=== PATIENT | female | born 1940 | race African-American/Black ===

== ENCOUNTER 2017-09-11 13:14 | Emergency (ER) | payer OTHER ==
[2017-09-11 13:26] VITALS: BP 138/79; PULSE 84; TEMP 98.5; BMI 36.6
--- NOTE | 2017-09-11 14:16 | PDOC ---
History of Present Illness - General Chief Complaint: Allergic Reaction Stated Complaint: SWOLLEN FACE Time Seen by Provider: 09/11/17 13:38 - History of Present Illness Initial Comments: 09/11/17 14:16 77 yo F with h/o HTN, arthritis who p/w lip swelling. Patient reports acute onset lip and facial swelling beginning yesterday evening. States that swelling of face has improved this AM. Reports similar history 3 times in past. Denies SOB, cough, muffled voice/hoarse voice, neck pain, vision changes, wheezing, tongue swelling, pruritus, rash, odynophagia. Patient able to tolerate oral secretions. Denies OTC symptom management. Denies exposure to new clothing, detergent, bedding, topical emollients, chapstick, makeup, shampoo, soaps, or other facial products. Denies F/C, N/V, CP, SOB, abdominal pain, diarrhea, constipation, urinary complaints, weakness, lightheadedness, sensory changes SHx: Tobacco use 1 ppd 30+ years. Denies Etoh or IVDA. PMHx: As noted above. Denies aj inhibitors. ROS: as noted above Past History - Past Medical History Allergies/Adverse Reactions: Allergies Allergy/AdvReac Type Severity Reaction Status Date / Time No Known Allergies Allergy Verified 09/11/17 13:21 Home Medications: Ambulatory Orders Amlodipine Besylate 0 mg PO DAILY 09/11/17 Carvedilol [Coreg] 0 mg PO DAILY 09/11/17 Prednisone [Prednisone 50 MG TABLETS] 50 mg PO DAILY #4 tablet MDD 1 tab Spironolactone 0 mg PO DAILY 09/11/17 COPD: No HTN: Yes Other medical history: ARTHRITIS - Surgical History Appendectomy: Yes - Suicide/Smoking/Psychosocial Hx Smoking History: Current every day smoker Have you smoked in the past 12 months: Yes Number of Cigarettes Smoked Daily: 20 Information on smoking cessation initiated: No Review of Systems - Review of Systems Comments:: 09/11/17 14:15 GENERAL/CONSTITUTIONAL: No fever or chills. No weakness. HEAD, EYES, EARS, NOSE AND THROAT: + Lip swelling. No change in vision. No ear pain or discharge. No sore throat. CARDIOVASCULAR: No chest pain or shortness of breath RESPIRATORY: No cough, wheezing, or hemoptysis. GASTROINTESTINAL: No nausea, vomiting, diarrhea or constipation. GENITOURINARY: No dysuria, frequency, or change in urination. MUSCULOSKELETAL: No joint or muscle swelling or pain. No neck or back pain. SKIN: No rash NEUROLOGIC: No headache, vertigo, loss of consciousness, or change in strength/ sensation. ENDOCRINE: No increased thirst. No abnormal weight change HEMATOLOGIC/LYMPHATIC: No anemia, easy bleeding, or history of blood clots. ALLERGIC/IMMUNOLOGIC: No hives or skin allergy. *Physical Exam - Vital Signs Last Vital Signs Temp Pulse Resp BP Pulse Ox 98.5 F 84 19 138/79 99 09/11/17 13:21 09/11/17 13:21 09/11/17 13:21 09/11/17 13:21 09/11/17 13:21 - Physical Exam Comments: 09/11/17 14:16 GENERAL: Awake, alert, and fully oriented, in no acute distress HEAD: No signs of trauma, normocephalic, atraumatic EYES: PERRLA, EOMI, sclera anicteric, conjunctiva clear ENT: Absent tongue swelling, or stridor. Auricles normal inspection, hearing grossly normal, nares patent, oropharynx clear without exudates. Moist mucosa NECK: Normal ROM, supple, no lymphadenopathy, JVD, or masses LUNGS: No distress, speaks full sentences, clear to auscultation bilaterally HEART: Regular rate and rhythm, normal S1 and S2, no murmurs, rubs or gallops, peripheral pulses normal and equal bilaterally. ABDOMEN: Soft, nontender, normoactive bowel sounds. No guarding, no rebound. No massesNEUROLOGICAL: Cranial nerves II through XII grossly intact. Normal speech, normal gait, no focal sensorimotor deficits SKIN: Warm, Dry, normal turgor, no rashes or lesions noted Medical Decision Making - Medical Decision Making 09/11/17 15:29 77 yo F with h/o HTN, arthritis who p/w lip swelling. VSS, A&OX3. Absent stridor , mucosal edema, wheezing, hypoxia, or other evidence of respiratory compromise. No systemic signs or symptoms of anaphylaxis. Patient able to tolerate PO intake and oral secretions. Most likely 2/2 angioedema ( hereditary vs. allergic vs. drug induced). ED Course: Diphehydramine, Ranitidine, Prednisone 09/11/17 16:57 09/11/17 17:07 Patient swelling improved following PO intake of medication. No evidence of resp. compromise. Patent advised to f/u with ENT and PMD. Referred to [facility] d/ t issues with insurance coverage. Advised to take Prednisone as prescribed. *DC/Admit/Observation/Transfer Diagnosis at time of Disposition: Lip swelling - Discharge Dispostion Disposition: HOME Condition at time of disposition: Stable Decision to Admit order: No - Prescriptions Prescriptions: Prednisone [Prednisone 50 MG TABLETS] 50 mg PO DAILY #4 tablet MDD 1 tab - Referrals Referrals: Jagjit Barraza MD [Staff Physician] - Hector Brewer MD [Staff Physician] - - Patient Instructions Printed Discharge Instructions: DI for Angioedema Additional Instructions: Please return to the emergency department with any new or worsening symptoms or concerns. Please follow up with your primary care physician within 72 hours. Please take prednisone daily as prescribed. - Post Discharge Activity - Attestations Physician Attestion: 09/11/17 16:21 I attest to the information provided in this note.
[2017-09-11] MEDS ORDERED: diphenhydrAMINE HCL 12.5 MG/5 ML UNIT-DOSE CUPS PO ONE (14:40)
[2017-09-11] MEDS ORDERED: predniSONE 20 MG TABLET (UD) PO ONE (14:40)
[2017-09-11] MEDS ORDERED: RANITIDINE HCL 150 MG TABLET (FP) PO ONE (14:40)
[2017-09-11] MEDS ORDERED: predniSONE 20 MG TABLET (UD) ONE (14:47)
[2017-09-11] MEDS ORDERED: diphenhydrAMINE HCL 25 MG CAPSULE (FP) PO ONE (14:47)
[2017-09-11] MEDS ORDERED: RANITIDINE HCL 150 MG TABLET (FP) ONE (14:48)
--- NOTE | 2017-09-11 17:03 | PDOC ---
Attending Attestation - Resident Resident Name: Kareem Reyes - ED Attending Attestation I have performed the following: I have examined & evaluated the patient, The case was reviewed & discussed with the resident, I agree w/resident's findings & plan, Exceptions are as noted - HPI HPI: 09/11/17 16:56 "The patient is a 77 year old female, with a history of arthritis and hypertension, who presents to the emergency department with lip swelling. Pt states that her bottom lip started to swell last night. It gradually progressed to her upper lip as well. Pt denies any tongue swelling, denies voice change, denies SOB, denies difficulty swallowing. Pt states she had 3 similar episodes in the past. She believes that it is an allergic reaction but does not know what she is allergic to. She has not seen an senior software qa engineer. Pt is not on ACEI or ARB. Denies any new foods or exposures. She denies any rashes. She denies recent fevers, chills, headache or dizziness. She denies recent nausea, vomit, diarrhea or constipation. She denies recent dysuria, frequency, urgency or hematuria. She denies recent chest pain or shortness of breath. Allergies: NKA Past surgical history: None reported. Social history: Smoker 1 pack per day for over 30 years. Denies EtOH use and recreational drug use. " - Physicial Exam PE: 09/11/17 17:06 "GENERAL: Awake, alert, and fully oriented, in no acute distress. HEAD: No signs of trauma EYES: PERRLA, EOMI, sclera anicteric, conjunctiva clear ENT: + lower lip swelling, + mild upper lip swelling, no tongue swelling, no uvula swelling, Auricles normal inspection, hearing grossly normal, nares patent , oropharynx clear without exudates. Moist mucosa NECK: Nontender, no stepoffs, Normal ROM, supple, no lymphadenopathy, JVD, or masses LUNGS: Breath sounds equal, clear to auscultation bilaterally. No wheezes, and no crackles, no stridor HEART: Regular rate and rhythm, normal S1 and S2, no murmurs, rubs or gallops ABDOMEN: Soft, nontender, normoactive bowel sounds. No guarding, no rebound. No masses EXTREMITIES: Normal range of motion, no edema. No clubbing or cyanosis. No cords, erythema, or tenderness NEUROLOGICAL: Cranial nerves II through XII intact. 5/5 strength and sensation in all extremities, Normal speech, normal gait, normal cerebellar function SKIN: Warm, Dry, normal turgor, no rashes or lesions noted. " - Medical Decision Making 09/11/17 17:07 77 F with angioedema localized to lips. Possibly 2/2 allergic reaction. Pt is not on ACEI or ARB. May also be hereditary, though pt without any family history of angioedema. Pt was given steroids, benadryl, and pepcid with significant improvement in swelling. After 3 hours in ED, pt reports that her lower lip is significantly smaller than when she arrived. Upper lip still with mild swelling but also improving. Pt is well appearing, with normal vitals. Clinically stable for DC at this time. I discussed the physical exam findings, ancillary test results and final diagnoses with the patient. I answered all of the patient's questions. The patient was satisfied with the care received and felt comfortable with the discharge plan and treatment plan. The patient agrees to follow up with the primary care physician within 24-72 hours. Pt instructed to follow up with ENT/senior software qa engineer within 1 week.
== END 2017-09-11 17:18 | disposition home or self-care (01) ==
LOC: JER 13:14
DX: T78.3XXA Angioneurotic edema, initial encounter (principal); I10 Essential (primary) hypertension; M12.9 Arthropathy, unspecified; F17.210 Nicotine dependence, cigarettes, uncomplicated
CPT/HCPCS: 99282-25

== ENCOUNTER 2018-12-30 14:26 | Emergency (ER) | payer OTHER ==
[2018-12-30 14:32] VITALS: BMI 43.7
--- NOTE | 2018-12-30 14:52 | PDOC ---
History of Present Illness - General Chief Complaint: Injury Stated Complaint: FALL Time Seen by Provider: 12/30/18 14:52 History Source: Patient Exam Limitations: No Limitations - History of Present Illness Initial Comments: 78 year old female with PMH HTN, CHF, arthritis, angioedema, meningioma presented to ED for closed head injury 2/2 fall from bed. Pt reported she was dreaming that someone was attacking her with a gun, became scared and accidentally fell out of bed onto the ground. Pt reported she was unable to get up off the ground on her own, prompting her and her granddaughter who was home to call the ambulance. Pt denied chest pain, shortness of breath, palpitations, lightheadedness, syncope, LOC, vomiting. Pt reported right sided forehead pain and right lateral hand pain. Pt reported she feels her hand pain has improved. Pt denied neck pain, lower extremity pain, hip pain, abdominal pain. Pt reported she has been ambulatory without difficulty using her cane since the fall. Neurologist: Dr. Sandra AZEVEDO General: denied fever, chills, generalized weakness. HEENT: denied sore throat, rhinorrhea, ear pain. Cardiovascular: denied chest pain, palpitations, syncope, diaphoresis. Respiratory: denied shortness of breath, cough, sputum production, hemoptysis. Gastrointestinal: denied abdominal pain, nausea, vomiting, diarrhea, constipation, blood in stool. Genitourinary: denied dysuria, increased urinary frequency, hematuria, urinary incontinence, flank pain. Back: denied back pain. Musculoskeletal: denied joint pain, muscle pain, joint swelling. Neurological: admitted to headache. denied dizziness, numbness, tingling, weakness. Integumentary: denied rash, laceration, abrasion. Hematologic/Lymphatic: denied bruising or bleeding. PE Constitutional: Well-nourished, Well-developed, appearing stated age. Airway: intact Breathing: bilateral breath sounds Circulation: 2+ carotid pulse B/L HEENT: head is normocephalic. right forehead hematoma. No facial bones tenderness to palpation. No love sign. No raccoon eyes. EOMI. PERRLA. Neck: supple. Full ROM. no midline c-spine tenderness to palpation. No step offs. no paraspinal tenderness to palpation. Cardiovascular: regular heart rhythm. no murmurs. no pericardial friction rub. Chest wall: no seatbelt sign. No tenderness to palpation of anterior chest wall. No deformity to anterior chest wall. Respiratory: clear to auscultation bilaterally. no crackles, rhonchi or wheezing. no stridor. Abdomen: soft, nontender. normal bowel sounds. no rebound, guarding, masses. No ecchymoses. Back: no midline T-spine or L-spine tenderness to palpation. No step offs. Pelvis: lower extremities equal in length without external rotation. No hip tenderness to palpation. Extremities: peripheral pulses intact. no lower extremity edema. full ROM bilateral wrists. no tenderness to palpation of right hand. no snuff box tenderness to right hand. full ROM all right hand fingers. Neurological: alert. oriented x3. CN2-12 intact. 5/5 strength all extremities. normal ankle plantar flexion. full sensation all extremities and bilateral face. no ataxia. gait normal. Psych: awake, alert, oriented x3. follows commands. answers questions appropriately. Past History - Past Medical History Allergies/Adverse Reactions: Allergies Allergy/AdvReac Type Severity Reaction Status Date / Time No Known Allergies Allergy Verified 09/11/17 13:21 Home Medications: Ambulatory Orders Amlodipine Besylate 10 mg PO DAILY 09/11/17 Carvedilol [Coreg] 12.5 mg PO DAILY 09/11/17 Furosemide 40 mg PO DAILY 12/30/18 Meloxicam 15 mg PO DAILY 12/30/18 COPD: No HTN: Yes - Surgical History Appendectomy: Yes - Suicide/Smoking/Psychosocial Hx Smoking History: Never smoked Have you smoked in the past 12 months: Yes Number of Cigarettes Smoked Daily: 20 *Physical Exam - Vital Signs Last Vital Signs Temp Pulse Resp BP Pulse Ox 98.1 F 74 20 156/78 96 12/30/18 14:29 12/30/18 14:29 12/30/18 14:29 12/30/18 14:29 12/30/18 14:29 Medical Decision Making - Medical Decision Making 78 year old female with above PMH presented to ED for closed head injury 2/2 falling out of bed due to bad dream. Initial Vital Signs Temp Pulse Resp BP Pulse Ox 98.1 F 74 20 156/78 96 12/30/18 14:29 12/30/18 14:29 12/30/18 14:29 12/30/18 14:29 12/30/18 14:29 Afebrile. No tachycardia. No tachypnea. Mild hypertension - pt reported she did not take her BP medication today "because I didnt get around to it" No hypoxia on room air. Labs ordered: none Medications ordered: none -Pt offered Tylenol and refused Imaging ordered: CT head, CT cervical spine, CT facial bones, right hand XR 12/30/18 16:14 CT head report: Name: [facility] DEPARTMENT OF RADIOLOGY Phys: Rafia Tapia RESIDENT : 1940 Age: 78 Sex: F [facility] Acct: [id number] Loc: [address] Exam Date: 12/30/18 Status: [facility] [place] [id number] Unit Number: [id number] EXAM#: TYPE/EXAM: RESULT: [id number] CT/HEAD CT WITHOUT CONTRAST Cranial CT without contrast Clinical information: status post fall Multiplanar imaging was performed. Intravenous contrast was not administered. No prior imaging studies are available at this facility for direct comparison. No CT evidence of intracranial injury or calvarial fracture. There is no extra-axial fluid collection. Right forehead scalp contusion. An approximate 1.7 x 1 x 1 cm calcified meningioma is noted along the left lateral border of the frontal cerebral falx also abutting the superior sagittal sinus. No perilesional edema is visualized. A 0.3 cm calcification is noted within the head of the left caudate nucleus consistent with postinflammatory/postinfectious sequela. No discrete infarct is identified within the limitations of CT. The ventricles and cisterns appear unremarkable. 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 Impression: No CT evidence of acute intracranial pathology. Calcified 1.7 x 1 x 1 cm left frontal parafalcine meningioma. Correlation with 3 month follow-up CT /MRI is suggested to evaluate stability unless the patient is a surgical candidate at this time. 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 Reported By: Jordin Houser MD 12/30/[address] cervical spine report: Name: [facility] DEPARTMENT OF RADIOLOGY Phys: Abiodun Tapiaa RESIDENT : 1940 Age: 78 Sex: F [facility] Acct: [id number] Loc: [address] Exam Date: 12/30/18 Status: [facility] [place] [id number] Unit Number: [id number] ACCESSION # : [id number] EXAM#: TYPE/EXAM: RESULT: CT/CERVICAL SPINE CT W/O CONTR CERVICAL SPINE CT without contrast Clinical information: status post fall from bed Multiplanar imaging was performed. No prior imaging studies are available at this facility for direct comparison. No fracture or posttraumatic malalignment is seen. There is prominent ossified thickening of the posterior longitudinal ligament from the level of the base of the odontoid process to the mid C7 level. There is resultant marked central canal stenosis with corresponding marked spinal cord impingement at the C2-C3, C3-C4 and possibly C4 -C5 levels. The perivertebral soft tissues demonstrate no obvious abnormality. Note is made of diffuse thyromegaly. There appears to be enlargement of the partially imaged cardiac silhouette on the frontal digital cooking show host view. Correlation with radiography is suggested. IMPRESSION: No fracture is identified. Marked multilevel central canal stenosis with corresponding marked spinal cord impingement is noted secondary to ossified hypertrophic thickening of the posterior longitudinal ligament. Thyromegaly. Possible cardiomegaly. Reported By: Jordin Houser MD 12/30/[address] facial bone report: Name: [facility] DE[facility]MENT OF RADIOLOGY Phys: ReginaAbiodun banga RESIDENT : 1940 Age: 78 Sex: F [facility] Acct: [id number] Loc: [address] Exam Date: 12/30/18 Status: [place] [address] Unit Number: [id number] EXAM#: TYPE/EXAM: RESULT: CT/FACIAL BONES CT W/O CONTRAST Facial bones CT without contrast Clinical information: fall from bed, right periorbital swelling Multiplanar imaging was performed. The maxillofacial and orbital structures demonstrate no CT evidence of fracture. A scalp contusion is seen along the right lower forehead probably extending along the ipsilateral periorbital region. The intraorbital soft tissue structures demonstrate no CT evidence of injury. The partially imaged upper cervical spine demonstrates ossification of the posterior longitudinal ligament with resultant marked multilevel central canal stenosis. Please refer to the dedicated cervical spine CT report in this regard. Impression: No fracture is identified. Reported By: Jordin Houser MD 12/30/18 1615 Pt declined right hand injury, stating her pain is improved. Pt admitted to neck pain developing since she came to the ED. 12/30/18 17:00 Dr. Horton, neurosurgery sewing techniques demonstrator, paged. 12/30/18 17:21 Dr. Flores, pt's neurologist, paged, Dr. Raphael sewing techniques demonstrator. Pt agreed to hand XR - shows no acute fracture or dislocation by my read. -Pending official report 12/30/18 17:32 Dr. Horton, neurosurgery sewing techniques demonstrator, paged. 12/30/18 17:[address] Horton about CT findings, he reported it is likely chronic and pt can be discharged. 12/30/18 17:[address] Raphael about CT findings, he reported it is likely chronic 2/2 multilevel disease, he recommends prompt follow up and return precautions. Pt advised to F/U with neurosurgery and neurology and PCP. Plan for care explained to patient and grand-daughter, who agreed with plan for care. Pt to be discharged. 12/31/18 12:24 Follow up: Official Hand XR report: Name: [facility] DEPARTMENT OF RADIOLOGY Phys: Rafia Tapia RESIDENT : 1940 Age: 78 Sex: F [facility] Acct : [id number] Loc: [address] Exam Date: 12/30/18 Status: [facility] [address] Unit Number: [id number] EXAM#: TYPE/EXAM: RESULT: [id number] RAD/HAND- RIGHT Right hand: Fall. Tender fourth and fifth metacarpals 3 views of the right hand have been submitted. There is loss of bone density, degenerative changes and no sign of a gross fracture or subluxation no sign of blastic or lytic changes. Swelling, foreign body or soft tissue air is not seen. If symptoms persist, further imaging may be of help. Impression: Loss of bone density. Degenerative changes. No acute fracture appreciated. Reported By: Hector Maguire MD 12/31/18 0710 *DC/Admit/Observation/Transfer Diagnosis at time of Disposition: Closed head injury, Fall - Discharge Dispostion Disposition: HOME Condition at time of disposition: Improved Decision to Admit order: No - Referrals - Patient Instructions Printed Discharge Instructions: How to Prevent Falls, DI for Closed Head Injury Additional Instructions: Your CAT-SCAN results are below: -CT head report: Name: [facility]PARTMENT OF RADIOLOGY Phys: Rafia Tapia RESIDENT : 1940 Age: 78 Sex: F [facility] Acct: [id number] Loc: [address] Exam Date: 12/30/18 Status: [place] [address] Unit Number: [id number] EXAM#: TYPE/EXAM: RESULT: [id number] CT/HEAD CT WITHOUT CONTRAST Cranial CT without contrast Clinical information: status post fall Multiplanar imaging was performed. Intravenous contrast was not administered. No prior imaging studies are available at this facility for direct comparison. No CT evidence of intracranial injury or calvarial fracture. There is no extra-axial fluid collection. Right forehead scalp contusion. An approximate 1.7 x 1 x 1 cm calcified meningioma is noted along the left lateral border of the frontal cerebral falx also abutting the superior sagittal sinus. No perilesional edema is visualized. A 0.3 cm calcification is noted within the head of the left caudate nucleus consistent with postinflammatory/postinfectious sequela. No discrete infarct is identified within the limitations of CT. The ventricles and cisterns appear unremarkable. 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 Impression: No CT evidence of acute intracranial pathology. Calcified 1.7 x 1 x 1 cm left frontal parafalcine meningioma. Correlation with 3 month follow-up CT /MRI is suggested to evaluate stability unless the patient is a surgical candidate at this time. 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 Reported By: Jordin Houser MD 12/30/18 1549 -CT cervical spine report: Name: [facility] DEPARTMENT OF RADIOLOGY Phys: Rafia Tapia RESIDENT : 1940 Age: 78 Sex: F [facility] Acct: [id number] Loc: [facility] [address] [place] [address] Exam Date: 12/30/18 Status: [place] [id number] Unit Number: [id number] ACCESSION # : [id number] EXAM#: TYPE/EXAM: RESULT: CT/CERVICAL SPINE CT W/O CONTR CERVICAL SPINE CT without contrast Clinical information: status post fall from bed Multiplanar imaging was performed. No prior imaging studies are available at this facility for direct comparison. No fracture or posttraumatic malalignment is seen. There is prominent ossified thickening of the posterior longitudinal ligament from the level of the base of the odontoid process to the mid C7 level. There is resultant marked central canal stenosis with corresponding marked spinal cord impingement at the C2-C3, C3-C4 and possibly C4 -C5 levels. The perivertebral soft tissues demonstrate no obvious abnormality. Note is made of diffuse thyromegaly. There appears to be enlargement of the partially imaged cardiac silhouette on the frontal digital cooking show host view. Correlation with radiography is suggested. IMPRESSION: No fracture is identified. Marked multilevel central canal stenosis with corresponding marked spinal cord impingement is noted secondary to ossified hypertrophic thickening of the posterior longitudinal ligament. Thyromegaly. Possible cardiomegaly. Reported By: Jordin Houser MD 12/30/18 1558 -CT facial bone report: Name: [facility] DEPARTMENT OF RADIOLOGY Phys: Rafia Tapia RESIDENT : 1940 Age: 78 Sex: F [facility] Acct: [id number] Loc: [address] Exam Date: 12/30/18 Status: [place] [address] Unit Number: [id number] EXAM#: TYPE/EXAM: RESULT: CT/FACIAL BONES CT W/O CONTRAST Facial bones CT without contrast Clinical information: fall from bed, right periorbital swelling Multiplanar imaging was performed. The maxillofacial and orbital structures demonstrate no CT evidence of fracture. A scalp contusion is seen along the right lower forehead probably extending along the ipsilateral periorbital region. The intraorbital soft tissue structures demonstrate no CT evidence of injury. The partially imaged upper cervical spine demonstrates ossification of the posterior longitudinal ligament with resultant marked multilevel central canal stenosis. Please refer to the dedicated cervical spine CT report in this regard. Impression: No fracture is identified. Reported By: Jordin Houser MD 12/30/18 1615 Take Tylenol over the counter for pain. Take as advised on label. Follow up with your primary care doctor within 4 days. Your care is not complete until you follow up. Bring all paperwork given to you today to your appointment. Return to the Emergency Department for increasing pain, nausea, vomiting, chest pain, shortness of breath, lightheadedness, feeling off balance, change to gait , changes to vision, dizziness, numbness, weakness, or any other new, worsening or concerning symptoms. - Post Discharge Activity
--- NOTE | 2018-12-30 17:05 | PDOC ---
Documentation entered by Dayana Hutton SCRIBE, acting as scribe for Emma Maxwell MD. Emma Maxwell MD: This documentation has been prepared by the Anni coe Xhesika, SCRIBE, under my direction and personally reviewed by me in its entirety. I confirm that the documentation accurately reflects all work, treatment, procedures, and medical decision making performed by me. Attending Attestation - Resident Resident Name: ReginaRafia - ED Attending Attestation I have performed the following: I have examined & evaluated the patient, The case was reviewed & discussed with the resident, I agree w/resident's findings & plan, Exceptions are as noted - HPI HPI: 12/30/18 15:57 The patient is a 78 year old female with a significant PMH of arthritis and hypertension who presents to the emergency department BIBA for R eye and R hand edema s/p fall from bed. The patient states she was in bed, dreaming that someone was attacking her with a gun, patient got scared, rolled out of bed onto the ground. Patient denies LOC. Patient notes she was not able to get up/ambulate after her fall. Patient states she has been ambulatory without difficulty using her cane prior to fall. The patient denies chest pain, shortness of breath, headache and dizziness. Denies fever, chills, cough, nausea, vomiting, diarrhea and constipation. Denies dysuria, frequency, urgency and hematuria. Allergies: NKDA Past surgical history: Appendectomy Social history: 1 pack per day smoker, over 30 years. Denies EtOH use and recreational drug use. - Physicial Exam PE: 12/30/18 17:07 awake alert lungs clear bilat heart rr no mrg abd soft nt nd ext wwp. right hand mikld ttp. no snuff box tenderness. skin warm and dry. no midline spinal tenderness. 5/5 all four ext. - Medical Decision Making 12/30/18 17:08 78 yo s/p fall out of bed head trauma .plan ct head facial bones. xray hand ct cervical spine with severe stenosis, some cord impingement. no traumatic injury. pt no midline tenderneess on exam but co stiffness. likley incidental finding, will d/w nuersurgery. ct head known meningioma. xray hand pending.
[2018-12-30 18:17] VITALS: BP 148/68; PULSE 86; TEMP 98.5
== END 2018-12-30 18:19 | disposition home or self-care (01) ==
LOC: JER 14:26
DX: S09.8XXA Other specified injuries of head, initial encounter (principal); M79.641 Pain in right hand; W06.XXXA Fall from bed, initial encounter; Y93.89 Activity, other specified; Y92.032 Bedroom in apartment as the place of occurrence of the external cause; Y99.8 Other external cause status; M48.02 Spinal stenosis, cervical region; I11.0 Hypertensive heart disease with heart failure; I50.9 Heart failure, unspecified
CPT/HCPCS: 70450-TC; 70486-TC; 72125-TC; 73130-TC-RT-FY; 99283-25

== ENCOUNTER 2019-06-01 16:09 | Inpatient (IN) | payer OTHER ==
[2019-06-01 16:45] VITALS: BMI 45.3
[2019-06-01] MEDS ORDERED: ACETAMINOPHEN 1000 MG/100 ML VIAL (NON FORMULARY) IVPB ONE (16:54)
--- NOTE | 2019-06-01 16:54 | PDOC ---
History of Present Illness - General Chief Complaint: Rectal Bleed Stated Complaint: HEMATOCHEZIA Time Seen by Provider: 06/01/19 16:40 History Source: Patient Exam Limitations: No Limitations - History of Present Illness Initial Comments: 06/01/19 16:54 79yF w PMHx HTN HLD arthritis 50 pack year smoker presenting with hematochezia. Crimson red gross rectal bleeding with blood clots during bowel movement x4 first noted at 1pm today. Never had colonoscopy before. Only had small amount hematochezia once before attributed to food poisoning. Did not take any daily meds today, not on anticoagulation. Denies fever, lightheaded, chest pain, SOB, ABD pain, urinary symptoms. Past History - Past Medical History Allergies/Adverse Reactions: Allergies Allergy/AdvReac Type Severity Reaction Status Date / Time No Known Allergies Allergy Verified 06/01/19 16:45 Home Medications: Ambulatory Orders Amlodipine Besylate 10 mg PO DAILY 09/11/17 Carvedilol [Coreg] 12.5 mg PO DAILY 09/11/17 Furosemide 40 mg PO DAILY 12/30/18 Meloxicam 15 mg PO DAILY 12/30/18 COPD: No (ARTHRITIS) HTN: Yes Hypercholesterolemia: Yes - Surgical History Appendectomy: Yes - Psycho Social/Smoking Cessation Hx Smoking History: Never smoked Have you smoked in the past 12 months: No Number of Cigarettes Smoked Daily: 20 Information on smoking cessation initiated: No Hx Alcohol Use: No Drug/Substance Use Hx: No Review of Systems - Review of Systems Constitutional: No: Chills, Fever HEENTM: No: Eye Pain, Nose Pain, Throat Pain Respiratory: No: Cough, Shortness of Breath Cardiac (ROS): No: Chest Pain, Palpitations ABD/GI: Yes: Rectal Bleeding. No: Abdominal Distended, Constipated, Diarrhea, Nausea, Vomiting : No: Burning, Dysuria Musculoskeletal: No: Back Pain, Joint Pain Integumentary: No: Bruising, Flushing Neurological: No: Headache, Seizure Psychiatric: No: Anxiety, Depression Endocrine: No: Excessive Sweating, Flushing, Intolerance to Cold, Intolerance to Heat *Physical Exam - Vital Signs Last Vital Signs Temp Pulse Resp BP Pulse Ox 98.2 F 90 16 161/83 100 06/01/19 16:31 06/01/19 16:31 06/01/19 16:31 06/01/19 16:31 06/01/19 16:31 - Physical Exam General Appearance: Yes: Nourished, Appropriately Dressed, Obese. No: Apparent Distress HEENT: positive: EOMI, JOHNNIE, Normal Voice, Hearing Grossly Normal. negative: Scleral Icterus (R), Scleral Icterus (L) Respiratory/Chest: positive: Lungs Clear, Normal Breath Sounds. negative: Chest Tender, Respiratory Distress Cardiovascular: positive: Regular Rhythm, Regular Rate, S1, S2. negative: Edema , Murmur Gastrointestinal/Abdominal: positive: Normal Bowel Sounds, Flat, Soft, Hernia ( ventral hernia, non tender, reduceable). 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 negative: Sensory Deficit, Confused, Disoriented ED Treatment Course - LABORATORY CBC & Chemistry Diagram: 06/01/19 16:38 06/01/19 16:38 Medical Decision Making - Medical Decision Making 06/01/19 17:01 EKG sinus rhythm w PVCs, HR 95, QTc 487, no ST changes Hgb 10.3 --- 79yF w PMHx HTN HLD arthritis 50 pack year smoker presenting with painless hematochezia. Hemodynamically stable. DDx: colorectal cancer (hx smoking) vs angiodysplasia vs diverticula. Also anemic Hgb 10.3, not concerning for transfusion Given 2 morphine, 80 protonix, tylenol Anticipate admit for hematochezia Signed out to night team - pending labs Discharge - Discharge Information Problems reviewed: Yes Clinical Impression/Diagnosis: Hematochezia Condition: Stable - Follow up/Referral Referrals: Toney Campbell MD [Primary Care Provider] - - Patient Discharge Instructions - Post Discharge Activity
[2019-06-01] MEDS ORDERED: morphine CARPU-JECT 4 MG/1 ML DISP.SYRIN IVPUSH ONE (17:06)
[2019-06-01] MEDS ORDERED: PANTOPRAZOLE SODIUM 40 MG VIAL IVPUSH ONE (17:06)
[2019-06-01 17:07] LABS: WHITE BLOOD COUNT 6.2 K/mm3 (4.0-10.0)
[2019-06-01 17:08] LABS: BASO % 1.5 % (0-2.0); EOS % 1.1 % (0-4.5); HEMATOCRIT 31.4 % (32.4-45.2); HEMOGLOBIN 10.3 GM/dL (10.7-15.3); LYMPH % 29.7 % (8-40); MCH 28.4 pg (25.7-33.7); MCHC 32.8 g/dl (32.0-36.0); MEAN CELL VOLUME 86.5 fl (80-96); MEAN PLT VOLUME 8.8 fl (7.5-11.1); MONO % 6.3 % (3.8-10.2); NEUT % 61.4 % (42.8-82.8); PLATELET COUNT 279 K/MM3 (134-434); RBC 3.63 M/mm3 (3.60-5.2); RDW 16.2 % (11.6-15.6)
[2019-06-01] MEDS ORDERED: MORPHINE SULFATE 2 MG/ML VIAL ONE (17:22)
[2019-06-01] MEDS ORDERED: PANTOPRAZOLE SODIUM 40 MG VIAL ONE (17:22)
--- NOTE | 2019-06-01 20:06 | PDOC ---
*Physical Exam - Vital Signs Last Vital Signs Temp Pulse Resp BP Pulse Ox 98.6 F 93 H 19 156/78 100 06/01/19 18:10 06/01/19 18:10 06/01/19 18:10 06/01/19 18:10 06/01/19 18:10 - Physical Exam General Appearance: Yes: Nourished, Appropriately Dressed, Obese. No: Apparent Distress HEENT: positive: EOMI, JOHNNIE, Normal ENT Inspection, Normal Voice, Symmetrical, Pharynx Normal. negative: Scleral Icterus (R), Scleral Icterus (L), Pharyngeal Erythema, Tonsillar Exudate, Tonsillar Erythema Neck: positive: Trachea midline, Normal Thyroid, Supple. negative: Tender, Lymphadenopathy (R), Lymphadenopathy (L), Tender lateral, Tender midline Respiratory/Chest: positive: Lungs Clear, Normal Breath Sounds. negative: Chest Tender, Respiratory Distress, Accessory Muscle Use, Paradoxal Breathing, Crackles, Rales, Rhonchi, Stridor, Wheezing Cardiovascular: positive: Regular Rhythm, Regular Rate. negative: Murmur Gastrointestinal/Abdominal: positive: Normal Bowel Sounds, Soft, Protuberent. negative: Tender, Organomegaly, Pulsatile Mass, Guarding, Rebound Musculoskeletal: positive: Normal Inspection. negative: CVA Tenderness Extremity: positive: Normal Capillary Refill, Normal Inspection, Normal Range of Motion, Pelvis Stable. negative: Tender, Pedal Edema, Swelling Integumentary: positive: Normal Color, Dry, Warm Neurologic: positive: Fully Oriented, Alert, Normal Mood/Affect. negative: Normal Response ED Treatment Course - LABORATORY CBC & Chemistry Diagram: 06/02/19 01:10 06/01/19 19:45 - ADDITIONAL ORDERS Additional order review: Laboratory Results 06/01/19 06/01/19 16:45 16:38 Sodium Cancelled Potassium Cancelled Chloride Cancelled Carbon Dioxide Cancelled Anion Gap Cancelled BUN Cancelled Creatinine Cancelled Est GFR (CKD-EPI)AfAm Cancelled Est GFR (CKD-EPI)NonAf Cancelled Random Glucose Cancelled Calcium Cancelled Total Bilirubin Cancelled AST Cancelled ALT Cancelled Alkaline Phosphatase Cancelled Creatine Kinase Cancelled Troponin I Cancelled Total Protein Cancelled Albumin Cancelled Blood Type Cancelled Antibody Screen Cancelled 06/01/19 16:38 RBC 3.63 MCV 86.5 MCHC 32.8 RDW 16.2 H MPV 8.8 Neutrophils % 61.4 Lymphocytes % 29.7 Monocytes % 6.3 Eosinophils % 1.1 Basophils % 1.5 - Medications Given in the ED: ED Medications Discontinued Medications Generic Name Dose Route Start Last Admin Trade Name Toy PRN Reason Stop Dose Admin Acetaminophen 1,000 mg 06/01/19 16:54 06/01/19 17:54 Ofirmev Injection - IVPB 06/01/19 16:55 1,000 mg ONCE ONE Administration Morphine Sulfate 2 mg 06/01/19 17:06 06/01/19 17:24 Morphine Injection - IVPUSH 06/01/19 17:07 2 mg ONCE ONE Administration Pantoprazole Sodium 80 mg 06/01/19 17:06 06/01/19 17:24 Protonix Iv IVPUSH 06/01/19 17:07 80 mg ONCE ONE Administration Medical Decision Making - Medical Decision Making 06/01/19 20:06 Signed out to me by Dr. Meza. 79F with PMH HTN, 50 pack year smoking history presenting with multiple episodes of painless BRBPR and clots. Signed out ~250cc bleeding in ED. Ddx includes diverticular bleeding vs. colon CA. CBC stable, pending remaining labs. IV was removed, needs replacement. Needs order for 2 units pRBCs in anticipation of transfusion. Exam reveals non-tender abdomen, normal heart/lung exam, good color. [X] labs [X] IV [X] blood order [] dispo 06/01/19 20:10 Labs notable for: - Hgb 10.3, unknown baseline - Ca 7.9, 9.1 corrected - Alb 2.5 06/01/19 22:30 Blood consent obtained. Admitting for serial Hbg checks and possible colonoscopy in AM for evaluation of diverticular disease. 06/01/19 23:51 Discussed case with carmelo Schwarz for tele admit under Dr. Vasquez 06/02/19 04:41 Blood running, patient in NAD, VS stable. Discharge - Discharge Information Problems reviewed: Yes Clinical Impression/Diagnosis: Hematochezia Condition: Stable - Admission Yes - Follow up/Referral - Patient Discharge Instructions - Post Discharge Activity
[2019-06-01 20:34] LABS: ALBUMIN 2.5 g/dl (3.4-5.0); ALK PHOS 121 U/L (45-117); ANION GAP 6 MMOL/L (8-16); BILIRUBIN,TOTAL 0.2 mg/dL (0.2-1); BLOOD UREA NITROGEN 17.3 mg/dL (7-18); CALCIUM 7.9 mg/dL (8.5-10.1); CHLORIDE 110 mmol/L (98-107); CO2 27 mmol/L (21-32); CREATININE 0.7 mg/dL (0.55-1.3); GLUCOSE,RANDOM 116 mg/dL (74-106); POTASSIUM 3.5 mmol/L (3.5-5.1); SGOT/AST 16 U/L (15-37); SGPT/ALT 16 U/L (13-61); SODIUM 143 mmol/L (136-145); TOT PROT 6.6 g/dl (6.4-8.2)
[2019-06-01 21:42] LABS: INR 1.13 (0.83-1.09); PROTHROMBIN TIME (PATIENT) 13.3 SEC (9.7-13.0)
--- NOTE | 2019-06-01 22:43 | PN ---
Teaching Attending Note Name of Resident: Moe Junior ATTENDING PHYSICIAN STATEMENT I saw and evaluated the patient. I reviewed the resident's note and discussed the case with the resident. I agree with the resident's findings and plan as documented. SUBJECTIVE: Patient is a 79 year old woman with a PMH of HTN, Osteoarthritis of knees, Meningioma, Tobacco use, Appendectomy and HLD, who presents to the ER with 1 day of hematochezia (x4 BM). Patient describes it as red blood with clots. Patient was not compliant with medications today secondary to symptoms. She denies recent fevers, chills, headache or dizziness. She denies recent nausea, vomit, abdominal pain, dysuria, frequency, urgency, hematuria, chest pain or shortness of breath. Passed a lot of blood (>150 ml) while in the ER. +Tobacco use - 50 pack years smoking. Denies alcohol or illicit drug use. No sick contacts or recent travels. FH of DM. Patient is adopted. Used a lot of Naproxen in the past and has been taking Ibuprofen/Meloxicam lately. OBJECTIVE: Alert and not orthostatic Vital Signs Period Temp Pulse Resp BP Sys/Glez Pulse Ox Last 24 Hr 98.2 F-98.6 F 90-93 16-19 156-161/78-83 100-100 HEENT: No Jaundice, eye redness or discharge, PERRLA, EOMI. Normocephalic, atraumatic. External ears are normal and hearing is grossly intact. No nasal discharge. Neck: Supple, nontender. No palpable adenopathy or thyromegaly. No JVD Chest: Good effort. Clear to auscultation and percussion. Heart: Regular. No S3, rub or murmur Abdomen: Not distended, soft, nontender and no HSM. No rebound or guarding. Normal bowel sounds. Ext: Peripheral pulses intact. No leg edema. Chronic stasis dermatitis changes in both lower extremities. Dystrophic toe nails. Skin: Warm and dry. No petechiae, rash or ecchymosis. Red blood on rectal exam and no external hemorrhoids. Neuro: Alert. Oriented x3. CN 2-12 grossly intact. Sensation grossly intact in all four extremities and DTR are symmetric. Psych: Appropriate mood and affect. Good insight. Home Medications Medication Instructions Recorded Amlodipine Besylate 10 mg PO DAILY 09/11/17 Carvedilol [Coreg] 12.5 mg PO DAILY 09/11/17 Furosemide 40 mg PO DAILY 12/30/18 Meloxicam 15 mg PO DAILY 12/30/18 Abnormal Lab Results 06/01/19 06/01/19 06/01/19 16:38 19:45 19:45 Hgb 10.3 L Hct 31.4 L RDW 16.2 H PT with INR 13.30 H INR 1.13 H Chloride 110 H Anion Gap 6 L Random Glucose 116 H Calcium 7.9 L Alkaline Phosphatase 121 H Albumin 2.5 L Crossmatch 06/01/19 19:45 Hgb Hct RDW PT with INR INR Chloride Anion Gap Random Glucose Calcium Alkaline Phosphatase Albumin Crossmatch See Detail ASSESSMENT AND PLAN: 1. Rectal bleeding - Etiology unclear. Will get CT abdomen/pelvis with contrast and CXR. Send blood for iron studies and type and cross PRBC. Transfuse once clinically indicated. Got tylenol, morphine and protonix in the ER. Will continue Protonix 40 mg bid IV, IV NS, keep her NPO and consult GI. Get HbA1c. Counseled to avoid NSAIDS. EKG shows NSR with premature supraventricular complexes and prolonged QTc. Will continue comprehensive care for all of patient s comorbid conditions. 2. Hypoalbuminemia - Possibly due to combined effects of malnutrition and inflammation associated with comorbid chronic conditions. Will ensure adequate dietary protein intake and also consult oceanographer physical. Urinalysis pending. 3. Tobacco Use Counseled on risks associated with tobacco use. We will provide patient all the necessary assistance to facilitate smoking cessation and prescribe Nicotine patch. 4. Morbid obesity Counseled on the risks associated with morbid obesity. Will provide patient all the necessary assistance, counseling and positive reinforcement to facilitate weight loss. Consult oceanographer physical. 5. Hypertension - Restart suitable outpatient antihypertensive drugs when clinically appropriate. Revise regimen to ensure [id number] excellent BP control and program counselor patient on the injurious effects of uncontrolled hypertension. Nonpharmacologic measures to control hypertension like weight loss , salt restriction and exercise discussed. Importance of adherence to treatment regimen and attainment of normotension emphasized. 6. DVT prophylaxis - SCD 7. Advance directives - Full code
--- NOTE | 2019-06-01 23:39 | HP ---
CHIEF COMPLAINT: rectal bleeding PCP: Shannan HISTORY OF PRESENT ILLNESS: 79F w/ pmh HTN, Dyslipidemia, chronic OA(knees), chronic venous stasis, b/l BLE de souza, chronic tobacco usage, meningioma(Dyckoff) presented to [email or web address] for complaints of bloody BM with mixed clots x4 episodes. Had one similiar episode, ~2ys prior which prompted a PCP visit. Was reassured that it was just food poisoning. Denies N, V, fever, chills, new foods, sick contacts. Takes NSAIDs for chronic knee pain, used to take naproxen regularly but stopped 2ys prior. Denies rectal masses. Has regular daily BM, denies straining during defecation. Eats fruits regularly, salad once/weekly. Never had EGD, or C-scopy. Denies h/o hemorrhoids, cirrhoisis, Hepatitis. No FH h/o bleeds. No bleeding gums or h/o prolonged menses. No AC. Walks with cane. Lives with . 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 ER course was notable for: (1) Hbg 10.3, pRBC x2(ordered); rpt Hgb 8.9; pRBC ordered to be transfused (2) HR 93 (3) Morphine 2mg IVP x1, protonix 80mg IVP x1, ofirmev x1g (4) EKG: rhythm w/ premature supraventricular complexes, QTc 487 Recent Travel: denies PAST MEDICAL HISTORY: HTN, Dyslipidemia, chronic OA(knees), chronic venous stasis, b/l BLE de souza, chronic tobacco usage, meningioma(Dyckoff) PAST SURGICAL HISTORY: open appey Social History: Smokinppd since ~30y/o(~50 pack-years) Alcohol: social Drugs: denies Allergies No Known Allergies Allergy (Verified 06/01/19 16:45) HOME MEDICATIONS: Home Medications Medication Instructions Recorded Amlodipine Besylate 10 mg PO DAILY 09/11/17 Carvedilol [Coreg] 12.5 mg PO DAILY 09/11/17 Furosemide 40 mg PO DAILY 12/30/18 Meloxicam 15 mg PO DAILY 12/30/18 REVIEW OF SYSTEMS CONSTITUTIONAL: Absent: fever, chills, diaphoresis, generalized weakness, malaise, loss of appetite, weight change HEENT: Absent: rhinorrhea, nasal congestion, throat pain, throat swelling, difficulty swallowing, mouth swelling, ear pain, eye pain, visual changes CARDIOVASCULAR: Absent: chest pain, syncope, palpitations, irregular heart rate, lightheadedness , peripheral edema RESPIRATORY: Absent: cough, shortness of breath, dyspnea with exertion, orthopnea, wheezing, stridor, hemoptysis GASTROINTESTINAL: bloodly BM w/ clots Absent: abdominal pain, abdominal distension, nausea, vomiting, diarrhea, constipation, melena, hematochezia GENITOURINARY: Absent: dysuria, frequency, urgency, hesitancy, hematuria, flank pain, genital pain MUSCULOSKELETAL: BLE knee pain, trouble ambulating Absent: myalgia, arthralgia, joint swelling, back pain, neck pain SKIN: Absent: rash, itching, pallor HEMATOLOGIC/IMMUNOLOGIC: Absent: easy bleeding, easy bruising, lymphadenopathy, frequent infections ENDOCRINE: Absent: unexplained weight gain, unexplained weight loss, heat intolerance, cold intolerance NEUROLOGIC: Absent: headache, focal weakness or paresthesias, dizziness, unsteady gait, seizure, mental status changes, bladder or bowel incontinence PHYSICAL EXAMINATION Vital Signs - 24 hr 06/01/19 06/01/19 16:31 18:10 Temperature 98.2 F 98.6 F Pulse Rate 90 Pulse Rate [ 93 H Apical] Respiratory 16 19 Rate Blood Pressure 161/83 Blood Pressure 156/78 [Right Arm] O2 Sat by Pulse 100 100 Oximetry (%) GENERAL: Awake, alert, and fully oriented, in no acute distress. Obese HEAD: NC/AT EYES: extraocular movements intact, sclera anicteric, conjunctiva clear w/o pallor. No lid lag. EARS, NOSE, THROAT: Ears normal, nares patent, oropharynx clear without exudates. Moist mucous membranes. NECK: Normal range of motion, supple without lymphadenopathy, JVD, or masses. LUNGS: Breath sounds equal, clear to auscultation bilaterally. No wheezes, and no crackles. No accessory muscle use. Breathing comfortably RA HEART: Regular rate and rhythm, normal S1 and S2 without murmur, rub or gallop. ABDOMEN: Indented RLQ surgical scar. Soft, nontender, not distended, no guarding , no rebound. Right-sided umbilical mass, reducible, nonTTP and w/o overlying skin changes RECTAL: dried clotted blood at perianal region. Excessive perianal tissue. Palpable ?hemorrhoid at ~6 oclock and 10'oclock. Streak of dark blood on glove. MUSCULOSKELETAL: Normal range of motion at all joints. Pain with AROM of knee UPPER EXTREMITIES: 2+ pulses, warm, well-perfused. No cyanosis. No clubbing. No peripheral edema. LOWER EXTREMITIES: 2+ pulses, warm, well-perfused. No calf tenderness. No peripheral edema. NEUROLOGICAL: Cranial nerves II-XII intact. Normal speech. Knee pain with standing upright PSYCHIATRIC: Cooperative. Good eye contact. Appropriate mood and affect. SKIN: Warm, dry, normal turgor, no rashes or lesions noted, normal capillary refill. Laboratory Results - last 24 hr 06/01/19 06/01/19 06/01/19 16:38 16:38 16:38 WBC 6.2 RBC 3.63 Hgb 10.3 L Hct 31.4 L MCV 86.5 MCH 28.4 MCHC 32.8 RDW 16.2 H Plt Count 279 MPV 8.8 Absolute Neuts (auto) 3.8 Neutrophils % 61.4 Lymphocytes % 29.7 Monocytes % 6.3 Eosinophils % 1.1 Basophils % 1.5 Nucleated RBC % 0 PT with INR INR Sodium Cancelled Potassium Cancelled Chloride Cancelled Carbon Dioxide Cancelled Anion Gap Cancelled BUN Cancelled Creatinine Cancelled Est GFR (CKD-EPI)AfAm Cancelled Est GFR (CKD-EPI)NonAf Cancelled Random Glucose Cancelled Calcium Cancelled Total Bilirubin Cancelled AST Cancelled ALT Cancelled Alkaline Phosphatase Cancelled Creatine Kinase Cancelled Troponin I Cancelled Total Protein Cancelled Albumin Cancelled Stool Occult Blood Blood Type O POSITIVE Antibody Screen Crossmatch 06/01/19 06/01/19 06/01/19 16:45 17:20 19:45 WBC RBC Hgb Hct MCV MCH MCHC RDW Plt Count MPV Absolute Neuts (auto) Neutrophils % Lymphocytes % Monocytes % Eosinophils % Basophils % Nucleated RBC % PT with INR INR Sodium 143 Potassium 3.5 Chloride 110 H Carbon Dioxide 27 Anion Gap 6 L BUN 17.3 Creatinine 0.7 Est GFR (CKD-EPI)AfAm 95.51 Est GFR (CKD-EPI)NonAf 82.41 Random Glucose 116 H Calcium 7.9 L Total Bilirubin 0.2 AST 16 ALT 16 Alkaline Phosphatase 121 H Creatine Kinase 66 Troponin I < 0.02 Total Protein 6.6 Albumin 2.5 L Stool Occult Blood Positive Blood Type Cancelled Antibody Screen Cancelled Crossmatch 06/01/19 06/01/19 19:45 19:45 WBC RBC Hgb Hct MCV MCH MCHC RDW Plt Count MPV Absolute Neuts (auto) Neutrophils % Lymphocytes % Monocytes % Eosinophils % Basophils % Nucleated RBC % PT with INR 13.30 H INR 1.13 H Sodium Potassium Chloride Carbon Dioxide Anion Gap BUN Creatinine Est GFR (CKD-EPI)AfAm Est GFR (CKD-EPI)NonAf Random Glucose Calcium Total Bilirubin AST ALT Alkaline Phosphatase Creatine Kinase Troponin I Total Protein Albumin Stool Occult Blood Blood Type O POSITIVE Antibody Screen Negative Crossmatch See Detail ASSESSMENT/PLAN: 79F w/ pmh HTN, Dyslipidemia, chronic OA(knees), chronic venous stasis, b/l BLE de souza, chronic tobacco usage, meningioma(Dyckoff) presented to [email or web address] for complaints of bloody BM with mixed clots x4 episodes. Admitted for probable GIB , requiring pRBC transfusion. ED with reported "100-250cc of bloody clots". # Hematochezia -- internal hemorrhoids vs diverticulosis > Hbg 10.3, pRBC x2(ordered); rpt Hgb 8.9; pRBC ordered to be transfused - hemodynamically stable(nontachy, normotensive, asymptomatic) - pRBC x2 --to be transfused - CTA A/P --to evaluate for bleed - GI(DiGiorno) consult: --recs pending - protonix 40 BID - NPO # HTN - holding HTN meds, will restart when appropriate # Dyslipidemia - needs med reconcilliation FEN - NPO(except for meds) - D5 1/2 NS + K @83 DVT PPX - no chemical AC in setting of bleed - SCDs Dispo: - Med surg Family Medical History Family Hx Cardiac Disorders: Mother (HTN) Visit type - Emergency Visit Emergency Visit: Yes ED Registration Date: 06/01/19 Care time: The patient presented to the Emergency Department on the above date and was hospitalized for further evaluation of their emergent condition. - New Patient This patient is new to me today: Yes Date on this admission: 06/02/19 - Critical Care Critical Care patient: No ATTENDING PHYSICIAN STATEMENT I saw and evaluated the patient. I reviewed the resident's note and discussed the case with the resident. I agree with the resident's findings and plan as documented. SUBJECTIVE: OBJECTIVE: ASSESSMENT AND PLAN:
[2019-06-02 01:24] LABS: HEMATOCRIT 27.1 % (32.4-45.2); HEMOGLOBIN 8.9 GM/dL (10.7-15.3); MCH 28.3 pg (25.7-33.7); MEAN CELL VOLUME 85.8 fl (80-96); MEAN PLT VOLUME 7.8 fl (7.5-11.1); PLATELET COUNT 216 K/MM3 (134-434); RBC 3.16 M/mm3 (3.60-5.2); RDW 15.7 % (11.6-15.6)
[2019-06-02] MEDS: D5-1/2NS+20 MEQ KCL - 20 MEQ/1,000 ML INFUS.BAG IV SCH (07:45)
[2019-06-02 09:04] LABS: HEMATOCRIT 29.7 % (32.4-45.2); HEMOGLOBIN 9.9 GM/dL (10.7-15.3); MCH 28.6 pg (25.7-33.7); MCHC 33.4 g/dl (32.0-36.0); MEAN CELL VOLUME 85.9 fl (80-96); MEAN PLT VOLUME 7.8 fl (7.5-11.1); PLATELET COUNT 206 K/MM3 (134-434); RBC 3.46 M/mm3 (3.60-5.2); RDW 15.7 % (11.6-15.6); WHITE BLOOD COUNT 6.1 K/mm3 (4.0-10.0)
[2019-06-02 09:59] LABS: BLOOD UREA NITROGEN 16.6 mg/dL (7-18); CALCIUM 7.8 mg/dL (8.5-10.1); CREATININE 0.7 mg/dL (0.55-1.3); PHOSPHOROUS 3.6 mg/dL (2.5-4.9); POTASSIUM 3.4 mmol/L (3.5-5.1)
--- NOTE | 2019-06-02 10:12 | PN ---
Progress Note (short form) - Note Progress Note: Patient is comfortable not bleeding anymore. She is hungry she wanted to eat some food. No fever no chills no nausea vomiting. Vital Signs Period Temp Pulse Resp BP Sys/Glez Pulse Ox Last 24 Hr 98.0 F-98.7 F 82-93 16-20 126-161/47-85 94-100 Head no headache no dizziness Ear nose throat no epistaxis Cardiovascular no chest pain Pulmonary no wheezing no coughing GI no abdominal pain Endocrine no history of diabetes hypothyroidism Neuro no history of stroke Dermatology no history of stroke Locomotor no history of joint pain Rest of review of systems are negative Physical examination Patient is comfortable HEENT normal Neck supple no JVD Lungs clear no wheezing Abdomen nontender no organomegaly bowel sounds normal Extremities she has chronic skin changes in the legs and mild edema Neurologically he is alert awake oriented, nonfocal Skin no rash noted CAT scan done today the result is as follows impression non-distended stomach limiting its evaluation. No gross gastrointestinal bleed demonstrated in the bowel. Gallbladder is negative for any acute cholecystitis and mild fatty liver. ASSESSMENT/PLAN: 79F w/ pmh HTN, Dyslipidemia, chronic OA(knees), chronic venous stasis, b/l BLE de souza, chronic tobacco usage, meningioma(Dyckoff) presented to [facility]ED for complaints of bloody BM with mixed clots x4 episodes. Admitted for probable GIB , requiring pRBC transfusion. ED with reported "100-250cc of bloody clots". # Hematochezia -- internal hemorrhoids vs diverticulosis > Hbg 10.3, pRBC x2(ordered); rpt Hgb 8.9; pRBC ordered to be transfused - hemodynamically stable(nontachy, normotensive, asymptomatic) - pRBC x2 --to be transfused - CTA A/P --to evaluate for bleed - GI(DiGiorno) consult: --recs pending - protonix 40 BID - NPO # HTN - holding HTN meds, will restart when appropriate # Dyslipidemia - needs med reconcilliation FEN - NPO(except for meds) - D5 1/2 NS + K @83 DVT PPX - no chemical AC in setting of bleed - SCDs Dispo: - Med surg Visit type - Emergency Visit Emergency Visit: Yes ED Registration Date: 06/01/19 Care time: The patient presented to the Emergency Department on the above date and was hospitalized for further evaluation of their emergent condition. - New Patient This patient is new to me today: Yes Date on this admission: 06/02/19 - Critical Care Critical Care patient: No - Discharge Referral Referred to [facility] No
[2019-06-02] MEDS: PANTOPRAZOLE 40 MG TABLET PO SCH ×2 (11:20→21:00)
[2019-06-02] MEDS ORDERED: PANTOPRAZOLE 40 MG TABLET ONE (11:28)
--- NOTE | 2019-06-02 12:01 | CON.GI ---
Consult Consult Specialty:: GI: For Dr. West Referred by:: Dr. Tigist Treadwell Reason for Consultation:: Rectal bleeding - History of Present Illness Chief Complaint: Rectal bleeding History of Present Illness: 79F admitted for evaluation of rectal bleeding. She describes 3 episodes of rectal bleeding and passage of clots at home yesterday. Last episode was around 530 last night. No bleeding since. Denies associated abdominal pain, nausea, vomiting, melena. Has been taking Aleve and ibuprofen for pain in her knees, States that she received cortisone inections for this about 6 months ago. Meloxicam is also listed on her home medication list. This was the first time she has had bleeding to this extent. She has never had an upper endoscopy or colonoscopy. Triage vitals yesterday revealed P: 90 BP: 161/82. Initial Hgb1AM this morning 8.9. Received 1 U PRBC. Hgb this morning 9.9. Receiving 2nd U PRBC. - History Source History Provided By: Patient, Family Member (Granddaughter present at bedside) Limitations to Obtaining History: No Limitations - Past Medical History Cardio/Vascular: Yes: HTN Rheumatology: Yes: Other (RA) - Past Surgical History Past Surgical History: Yes: Appendectomy - Alcohol/Substance Use Hx Alcohol Use: No - Smoking History Smoking history: Never smoked Have you smoked in the past 12 months: No Aproximately how many cigarettes per day: 20 - Social History Usual Living Arrangement: Alone ADL: Independent Place of : [facility] History of Recent Travel: No Home Medications - Allergies Allergies/Adverse Reactions: Allergies Allergy/AdvReac Type Severity Reaction Status Date / Time No Known Allergies Allergy Verified 06/01/19 16:45 - Home Medications Home Medications: Ambulatory Orders Amlodipine Besylate 10 mg PO DAILY 09/11/17 Carvedilol [Coreg] 12.5 mg PO DAILY 09/11/17 Furosemide 40 mg PO DAILY 12/30/18 Meloxicam 15 mg PO DAILY 12/30/18 Family Medical History Other Family History: Patent adopted. Does not know her biological family's history Review of Systems - Review of Systems Constitutional: denies: Unintentional Wgt. Loss Cardiovascular: denies: Chest Pain Respiratory: denies: SOB Gastrointestinal: reports: Rectal Bleeding. denies: Abdominal Pain, Indigestion , Melena, Nausea, Vomiting, Vomiting Blood Musculoskeletal: reports: Joint Pain Physical Exam-GI Vital Signs: Vital Signs Temperature 98.2 F 06/02/19 08:44 Pulse Rate 82 06/02/19 09:57 Respiratory Rate 06/02/19 09:57 Blood Pressure 136/47 L 06/02/19 09:57 O2 Sat by Pulse Oximetry (%) 95 06/02/19 06:50 Constitutional: Yes: Calm Eyes: No: Sclera Icterus Cardiovascular: Yes: Regular Rate and Rhythm. No: Murmur Respiratory: Yes: CTA Bilaterally Gastrointestinal Inspection: Yes: Scars (RLQ scar). No: Distention ...Auscultate: Yes: Normoactive Bowel Sounds ...Palpate: Yes: Soft. No: Hepatomegaly, Splenomegaly, Tenderness ...Percussion: No: Tympanitic Extremities: Yes: Other (Chronic stasis changes b/l LE) Edema: Yes Edema: LLE: 1+, RLE: 1+ Neurological: Yes: Alert Labs: CBC, BMP 06/02/19 08:50 06/02/19 08:50 INR, PTT INR 1.13 (0.83-1.09) H 06/01/19 19:45 Hepatic Panel Total Bilirubin 0.2 mg/dL (0.2-1) 06/01/19 19:45 AST 16 U/L (15-37) 06/01/19 19:45 ALT 16 U/L (13-61) 06/01/19 19:45 Alkaline Phosphatase 121 U/L (45-117) H 06/01/19 19:45 Albumin 2.5 g/dl (3.4-5.0) L 06/01/19 19:45 Problem List - Problems (1) Hematochezia Assessment/Plan: Patient remains hemodynamically stable. BUN normal as well. Suspect LGIB precipitated by NSAID use. Discussed with patient and her granddaughter. Discussed plan for colonoscopy and if unrevealing in terms of source of bleeding , possible upper endoscopy. Timing of procedures to be determined by her clincial course. Likely Tuesday, sooner if clnically warranted. Discussed potential risks of the procedures like but not limited to bleeding, perforation requiring surgery to repair, infection, sedation medication effects all of which could be potentially life threatening. She has agreed to the procedures. For now: NPO except meds IV hydration Surgical consult Admit to monitored setting. If worsening bleeding / hemodynamics, transfer to ICU Monitor H/H BID and for signs of overt bleeding Plan for Colonoscopy +/- EGD as noted above. Code(s): K92.1 - MELENA (2) Elevated alkaline phosphatase level Assessment/Plan: Noted on admission. May be from bone source. Check GGT and Abdominal US if elevated. Otherwise, continued w/u per PMD Code(s): R74.8 - ABNORMAL LEVELS OF OTHER SERUM ENZYMES
[2019-06-02] MEDS ORDERED: ACETAMINOPHEN 325 MG TABLET (FP) ONE (13:12)
[2019-06-02] MEDS: ACETAMINOPHEN 325 MG TABLET (FP) PO PRN ×2 (13:13→21:00)
--- NOTE | 2019-06-02 16:05 | EKG ---
Test Reason : Blood Pressure : / mmHG Vent. Rate : 095 BPM Atrial Rate : 095 BPM P-R Int : 162 ms QRS Dur : 078 ms QT Int : 388 ms P-R-T Axes : 059 014 065 degrees QTc Int : 487 ms SINUS RHYTHM WITH PREMATURE SUPRAVENTRICULAR COMPLEXES INFERIOR INFARCT NONSPECIFIC ST ABNORMALITY ABNORMAL ECG Confirmed by MD CHUCHO, OZ ([id number]) on 06/02/2019 4:05:20 PM Referred By: Confirmed By:OZ RANKIN MD
[2019-06-02 18:36] LABS: URINE APPEARANCE CLEAR; URINE BILIRUBIN NEGATIVE (NEGATIVE); URINE COLOR YELLOW; URINE GLUCOSE (UA) NEGATIVE (NEGATIVE); URINE KETONE NEGATIVE (NEGATIVE); URINE LEUK ESTERASE 0 (NEGATIVE); URINE NITRITE NEGATIVE (NEGATIVE); URINE PROTEIN 0 (NEGATIVE); URINE RBC 12.6 /hpf (0-4); URINE UROBILINOGEN 0.2 mg/dL (0.2-1.0); URINE WBC 0.7 /hpf (0-5)
[2019-06-02 18:37] LABS: EPI CELLS 0.8 /HPF (0-5/HPF); HYALINE CASTS 0.73 /lpf (0-8); URINE BACTERIA 17.7 /hpf (NEGATIVE)
[2019-06-02] MEDS: INSULIN SLIDING SCALE (NOVOLOG) 1 VIAL SQ SCH (21:01)
[2019-06-03] MEDS: ACETAMINOPHEN 325 MG TABLET (FP) PO PRN ×3 (06:38→18:52)
[2019-06-03] MEDS: D5-1/2NS+20 MEQ KCL - 20 MEQ/1,000 ML INFUS.BAG IV SCH (06:57)
--- NOTE | 2019-06-03 07:57 | PN ---
Progress Note (short form) - Note Progress Note: Patient is comfortable not bleeding anymore. She is hungry she wanted to eat some food. No fever no chills no nausea vomiting. Vital Signs Period Temp Pulse Resp BP Sys/Glez Pulse Ox Last 24 Hr 98.1 F-98.5 F 82-90 18-20 127-157/47-98 95-99 Review of system Ear nose throat no epistaxis Cardiovascular no chest pain Pulmonary no wheezing no coughing GI no abdominal pain Endocrine no history of diabetes hypothyroidism Neuro no history of stroke Dermatology no history of stroke Locomotor no history of joint pain Rest of review of systems are negative CBC, BMP 06/02/19 08:50 06/02/19 08:50 This hemoglobin is after 2 blood transfusions. Physical examination Patient is comfortable HEENT normal Neck supple no JVD Lungs clear no wheezing Abdomen nontender no organomegaly bowel sounds normal Extremities she has chronic skin changes in the legs and mild edema Neurologically he is alert awake oriented, nonfocal Skin no rash noted CAT scan done today the result is as follows impression non-distended stomach limiting its evaluation. No gross gastrointestinal bleed demonstrated in the bowel. Gallbladder is negative for any acute cholecystitis and mild fatty liver. ASSESSMENT/PLAN: 79F w/ pmh HTN, Dyslipidemia, chronic OA(knees), chronic venous stasis, b/l BLE de souza, chronic tobacco usage, meningioma(Dyckoff) presented to [facility] for complaints of bloody BM with mixed clots x4 episodes. Admitted for probable GIB , requiring pRBC transfusion. ED with reported "100-250cc of bloody clots". # Hematochezia -- internal hemorrhoids vs diverticulosis In by provider network mgr and she is going for colonoscopy hemoglobin is stable. Hypertension stable Atrial fibrillation history of will repeat EKG today and off anticoagulation at this time due to active bleeding. Will make her n.p.o. after midnight continue clear liquid diet. Visit type - Emergency Visit Emergency Visit: Yes ED Registration Date: 06/01/19 Care time: The patient presented to the Emergency Department on the above date and was hospitalized for further evaluation of their emergent condition. - New Patient This patient is new to me today: Yes Date on this admission: 06/03/19 - Critical Care Critical Care patient: No - Discharge Referral Referred to [facility] Med P.C.: No
[2019-06-03] MEDS: PANTOPRAZOLE 40 MG TABLET PO SCH ×2 (11:17→23:16)
[2019-06-03 11:40] LABS: BLOOD UREA NITROGEN 7.6 mg/dL (7-18); CREATININE 0.6 mg/dL (0.55-1.3); POTASSIUM 3.3 mmol/L (3.5-5.1)
[2019-06-03 11:44] LABS: BASO % 0.3 % (0-2.0); EOS % 1.6 % (0-4.5); HEMATOCRIT 32.4 % (32.4-45.2); HEMOGLOBIN 10.8 GM/dL (10.7-15.3); LYMPH % 28.8 % (8-40); MCH 28.8 pg (25.7-33.7); MCHC 33.4 g/dl (32.0-36.0); MEAN CELL VOLUME 86.4 fl (80-96); MEAN PLT VOLUME 8.7 fl (7.5-11.1); MONO % 4.8 % (3.8-10.2); NEUT % 64.5 % (42.8-82.8); PLATELET COUNT 217 K/MM3 (134-434); RBC 3.75 M/mm3 (3.60-5.2); RDW 15.5 % (11.6-15.6); WHITE BLOOD COUNT 6.5 K/mm3 (4.0-10.0)
--- NOTE | 2019-06-03 12:05 | PN.GI ---
GI Progress Note Subjective: Describes passage of small amount dark blood this morning, normal bowel movement subsequently No abdominal pain - Objective Vital Signs: Vital Signs Temperature 98.1 F 06/03/19 02:10 Pulse Rate 90 06/03/19 02:10 Respiratory Rate 20 06/03/19 02:10 Blood Pressure 146/62 06/03/19 02:10 O2 Sat by Pulse Oximetry (%) 99 06/02/19 21:24 Constitutional: Calm Eyes: No: Sclera Icterus HENT: Yes: Drooling Cardiovascular: Yes: Regular Rate and Rhythm Respiratory: Yes: CTA Bilaterally Gastrointestinal Inspection: No: Distention ...Auscultate: Yes: Normoactive Bowel Sounds ...Palpate: Yes: Soft. No: Hepatomegaly, Splenomegaly, Tenderness Extremities: Yes: Other (chronic stasis changes) Edema: Yes Edema: LLE: 1+, RLE: 1+ Neurological: Yes: Alert Labs: CBC, BMP 06/03/19 10:53 06/03/19 10:53 INR, PTT INR 1.13 (0.83-1.09) H 06/01/19 19:45 Problem List - Problems (1) Hematochezia Assessment/Plan: Clinically stable, scant amount of blood passed with subsequent normal bowel movement. Plan for colonoscopy 06/04/18. Consent obtained. Code(s): K92.1 - MELENA (2) Elevated alkaline phosphatase level Assessment/Plan: ordered repeat for AM Code(s): R74.8 - ABNORMAL LEVELS OF OTHER SERUM ENZYMES
--- NOTE | 2019-06-03 13:49 | EKG ---
Test Reason : Blood Pressure : / mmHG Vent. Rate : 090 BPM Atrial Rate : 090 BPM P-R Int : 188 ms QRS Dur : 084 ms QT Int : 402 ms P-R-T Axes : 088 035 067 degrees QTc Int : 491 ms SINUS RHYTHM WITH OCCASIONAL PREMATURE VENTRICULAR COMPLEXES AND PREMATURE ATRIAL COMPLEXES CANNOT RULE OUT INFERIOR INFARCT , AGE UNDETERMINED ABNORMAL ECG Confirmed by MD RANKIN MOYSES ([id number]) on 06/03/2019 1:48:32 PM Referred By: Cooper BURNS Confirmed By:OZ RANKIN MD
[2019-06-03] MEDS ORDERED: BISACODYL 5 MG TABLET.DR (FP) PO ONE (15:00)
[2019-06-03] MEDS ORDERED: PEG 3350/NA SULF BICARB CL/KCL 4000 ML SOLN.RECON PO ONE (16:00)
[2019-06-03] MEDS: INSULIN SLIDING SCALE (NOVOLOG) 1 VIAL SQ SCH (23:16)
[2019-06-04 07:45] LABS: BASO % 0.2 % (0-2.0); EOS % 1.9 % (0-4.5); HEMATOCRIT 30.8 % (32.4-45.2); HEMOGLOBIN 10.2 GM/dL (10.7-15.3); LYMPH % 31.7 % (8-40); MCH 28.6 pg (25.7-33.7); MCHC 33.1 g/dl (32.0-36.0); MEAN CELL VOLUME 86.3 fl (80-96); MEAN PLT VOLUME 8.7 fl (7.5-11.1); NEUT % 61.2 % (42.8-82.8); PLATELET COUNT 220 K/MM3 (134-434); RBC 3.57 M/mm3 (3.60-5.2); RDW 15.8 % (11.6-15.6); WHITE BLOOD COUNT 5.6 K/mm3 (4.0-10.0)
--- NOTE | 2019-06-04 08:08 | PN ---
Progress Note, Physician Chief Complaint: To complaints of rectal bleeding overnight. Awaiting colonscopy today History of Present Illness: 79F w/ pmh HTN, Dyslipidemia, chronic OA(knees), chronic venous stasis, b/l BLE de souza, chronic tobacco usage, meningioma(Dyckoff) presented to [facility] for complaints of bloody BM with mixed clots x4 episodes. Admitted for probable GIB , requiring pRBC transfusion. Pending colonscopy today - Current Medication List Current Medications: Active Medications Acetaminophen (Tylenol -) 650 mg PO Q6H PRN PRN Reason: PAIN Last Admin: 06/03/19 18:52 Dose: 650 mg Amlodipine Besylate (Norvasc -) 10 mg PO DAILY [facility] Carvedilol (Coreg -) 12.5 mg PO DAILY [facility] Potassium Chloride/Dextrose/Sod Cl (D5-1/2ns+20 Meq Kcl -) 20 meq in 1,000 mls @ 83 mls/hr IV ASDIR [facility] Last Admin: 06/03/19 06:57 Dose: 83 mls/hr Insulin Aspart (Novolog Vial Sliding Scale -) 1 vial SQ HS [facility]; Protocol Last Admin: 06/03/19 23:16 Dose: Not Given Pantoprazole Sodium (Protonix -) 40 mg PO BID [facility] Last Admin: 06/03/19 23:16 Dose: 40 mg - Objective Vital Signs: Vital Signs Temperature 98.6 F 06/04/19 07:46 Pulse Rate 82 06/04/19 07:46 Respiratory Rate 20 06/04/19 07:46 Blood Pressure 144/76 06/04/19 07:46 O2 Sat by Pulse Oximetry (%) 96 06/03/19 21:00 Constitutional: Yes: Well Nourished, No Distress, Calm Eyes: Yes: WNL, Conjunctiva Clear HENT: Yes: WNL, Atraumatic, Normocephalic Neck: Yes: WNL, Supple, Trachea Midline Cardiovascular: Yes: WNL, Regular Rate and Rhythm Respiratory: Yes: WNL, Regular, CTA Bilaterally Gastrointestinal: Yes: WNL, Normal Bowel Sounds ...Rectal Exam: Yes: Deferred Genitourinary: Yes: WNL Breast(s): Yes: WNL Musculoskeletal: Yes: WNL Extremities: Yes: WNL Edema: No Peripheral Pulses WNL: Yes Peripheral Pulses: Left Radial: 2+, Right Radial: 2+, Left Doralis Pedis: 2+, Right Dorsalis Pedis: 2+, Left Femoral: 2+, Right Femoral: 2+ Integumentary: Yes: WNL Neurological: Yes: WNL, Alert, Oriented ...Motor Strength: WNL Psychiatric: Yes: WNL Labs: CBC, BMP 06/04/19 05:50 INR, PTT INR 1.13 (0.83-1.09) H 06/01/19 19:45 - ....Imaging Cat Scan: Report Reviewed (CT: no GI bled in bowel, fatty liver, over distended GB with stone noted. No cholecycytitis) Problem List - Problems (1) HTN (hypertension) Assessment/Plan: normotensive c/w norvasc when taking PO Code(s): I10 - ESSENTIAL (PRIMARY) HYPERTENSION (2) Hyperlipidemia Assessment/Plan: diet controlled Code(s): E78.5 - HYPERLIPIDEMIA, UNSPECIFIED (3) Chronic osteoarthritis Assessment/Plan: c/o meloxican when no longer NPO if needed Code(s): M19.90 - UNSPECIFIED OSTEOARTHRITIS, UNSPECIFIED SITE (4) Chronic venous stasis Code(s): I87.8 - OTHER SPECIFIED DISORDERS OF VEINS (5) Tobacco use Assessment/Plan: 1ppd x 35 years smoking cessation offered nicotine patch but declined Code(s): Z72.0 - TOBACCO USE (6) Meningioma Code(s): D32.9 - BENIGN NEOPLASM OF MENINGES, UNSPECIFIED (7) GI bleeding Assessment/Plan: GI follwoing NPO Colonscopy planned for today start clear diet after colonscopy Code(s): K92.2 - GASTROINTESTINAL HEMORRHAGE, UNSPECIFIED (8) Prophylactic measure Assessment/Plan: FEN Fluids: IVF until after coloscopy Electrolytes: replete as indicated Nutrition: NPO and then resume clear diet, advance as tolerated DVT prophylaxis: SCDs, oob, ambulation Dispo: continues to require inpatient care. Full code discharge planning Code(s): Z29.9 - ENCOUNTER FOR PROPHYLACTIC MEASURES, UNSPECIFIED Visit type - Emergency Visit Emergency Visit: Yes ED Registration Date: 06/01/19 Care time: The patient presented to the Emergency Department on the above date and was hospitalized for further evaluation of their emergent condition. - New Patient This patient is new to me today: Yes Date on this admission: 06/04/19 - Critical Care Critical Care patient: No - Discharge Referral Referred to [facility] Med P.C.: No
[2019-06-04 08:18] LABS: ALBUMIN 2.8 g/dl (3.4-5.0); BILIRUBIN,TOTAL 0.7 mg/dL (0.2-1); BLOOD UREA NITROGEN 6.5 mg/dL (7-18); CALCIUM 8.1 mg/dL (8.5-10.1); CREATININE 0.6 mg/dL (0.55-1.3); POTASSIUM 3.2 mmol/L (3.5-5.1)
--- NOTE | 2019-06-04 09:03 | PDOC ---
Documentation entered by Andreas Aparicio SCRIBE, acting as scribe for Karla Csota MD. Karla Costa MD: This documentation has been prepared by the Markus coe Nirvannie, SCRIBE, under my direction and personally reviewed by me in its entirety. I confirm that the documentation accurately reflects all work, treatment, procedures, and medical decision making performed by me. Attending Attestation - Resident Resident Name: Modesto Meza - ED Attending Attestation I have performed the following: I have examined & evaluated the patient, The case was reviewed & discussed with the resident, I agree w/resident's findings & plan, Exceptions are as noted - HPI HPI: 06/01/19 17:40 The patient is a 79 year old female, with a significant past medical history of HTN and HLD, who presents to the emergency department with 1 day of hematochezia (x4 BM). Patient describes his hematochezia as bright red blood with clots onsetting at approximately 1pm. Patient was not compliant with medications today secondary to symptoms. She denies recent fevers, chills, headache or dizziness. She denies recent nausea, vomit, or abdominal pain. She denies recent dysuria, frequency, urgency or hematuria. She denies recent chest pain or shortness of breath. Allergies: NKDA Primary Care Physician: Dr. aCmpbell - Physicial Exam PE: 06/01/19 17:52 Agree with resident exam. Patient is alert and oriented and in no acute distress. Large amount ( approximately 150 cc) of bright red blood per rectum. - Medical Decision Making 06/01/19 17:54 Pt presents to the ED complaining of bright red blood per rectum. Continues to bleed from the rectum. Currently hemodynamically stable. Will treat with IV protonix, type and cross for two units and admit to medicine. 06/01/19 17:55
[2019-06-04] MEDS: PANTOPRAZOLE 40 MG TABLET PO SCH ×2 (09:18→22:46)
[2019-06-04] MEDS: D5-1/2NS+20 MEQ KCL - 20 MEQ/1,000 ML INFUS.BAG IV SCH (09:19)
[2019-06-04] MEDS: amLODIPine BESYLATE 10 MG TABLET (FP) PO SCH (09:19)
[2019-06-04] MEDS: CARVEDILOL 12.5 MG TABLET (FP) PO SCH (09:19)
[2019-06-04] MEDS ORDERED: POTASSIUM CHLORIDE TABS 20 MEQ TABLET.ER (FP) PO ONE (10:15)
[2019-06-04] MEDS ORDERED: ALBUTEROL SO4 0.083% IH SOL 2.5 MG/3 ML VIAL.NEB. NEB ONE (13:40)
[2019-06-04] MEDS ORDERED: ALBUTEROL SO4 0.083% IH SOL 2.5 MG/3 ML VIAL.NEB. NEB PRN (13:57)
[2019-06-04] MEDS: ACETAMINOPHEN 325 MG TABLET (FP) PO PRN (20:16)
[2019-06-04] MEDS: INSULIN SLIDING SCALE (NOVOLOG) 1 VIAL SQ SCH (22:45)
[2019-06-05] MEDS: ACETAMINOPHEN 325 MG TABLET (FP) PO PRN ×3 (06:12→18:03)
[2019-06-05 06:41] LABS: BASO % 0.5 % (0-2.0); HEMATOCRIT 28.6 % (32.4-45.2); HEMOGLOBIN 9.5 GM/dL (10.7-15.3); LYMPH % 33.2 % (8-40); MCH 28.6 pg (25.7-33.7); MCHC 33.2 g/dl (32.0-36.0); MEAN CELL VOLUME 86.2 fl (80-96); MEAN PLT VOLUME 8.2 fl (7.5-11.1); MONO % 6.1 % (3.8-10.2); NEUT % 57.2 % (42.8-82.8); PLATELET COUNT 236 K/MM3 (134-434); RBC 3.32 M/mm3 (3.60-5.2); RDW 15.6 % (11.6-15.6); WHITE BLOOD COUNT 4.8 K/mm3 (4.0-10.0)
[2019-06-05 07:19] LABS: ALBUMIN 2.6 g/dl (3.4-5.0); BILIRUBIN,TOTAL 0.6 mg/dL (0.2-1); BLOOD UREA NITROGEN 4.1 mg/dL (7-18); CALCIUM 7.7 mg/dL (8.5-10.1); CREATININE 0.7 mg/dL (0.55-1.3); MAGNESIUM 1.8 mg/dL (1.8-2.4); POTASSIUM 3.4 mmol/L (3.5-5.1)
[2019-06-05] MEDS ORDERED: POTASSIUM CHLORIDE TABS 20 MEQ TABLET.ER (FP) PO ONE (08:45)
[2019-06-05] MEDS: amLODIPine BESYLATE 10 MG TABLET (FP) PO SCH (09:41)
[2019-06-05] MEDS: PANTOPRAZOLE 40 MG TABLET PO SCH ×2 (09:41→21:35)
[2019-06-05] MEDS: CARVEDILOL 12.5 MG TABLET (FP) PO SCH (09:41)
--- NOTE | 2019-06-05 13:16 | PN ---
Physical Exam: SUBJECTIVE: Patient seen and examined at the bedside. sitting up in the chair in no acute distress. feels well. OBJECTIVE: Patient is a 79 year old male with a significant past medical history of hypertension, dyslipidemia, chronic OA (knees), chronic venous stasis, b/l BLE de souza, chronic tobacco usage, meningioma. Patient presents to the ED for c/o of bloody BM mixed with clots. Patient had a colonoscopy on 06/04/2019 and had episode of hypoxemia that occurred requiring bag mask ventilation. Vital Signs Period Temp Pulse Resp BP Sys/Glez Pulse Ox Last 24 Hr 97.5 F-98.5 F 60-84 15-20 133-157/53-79 94-100 GENERAL: The patient is awake, alert, and fully oriented, in no acute distress. HEAD: Normal with no signs of trauma. EYES: PERRL, extraocular movements intact, sclera anicteric, conjunctiva clear. No ptosis. ENT: Ears normal, nares patent, oropharynx clear without exudates NECK: Trachea midline, full range of motion, supple. LUNGS: Breath sounds equal, clear to auscultation bilaterally, no wheezes HEART: Regular rate and rhythm ABDOMEN: Soft, nontender, nondistended, normoactive bowel sounds EXTREMITIES: lower ext +1 bilateral edema, dry skin NEUROLOGICAL: Normal speech, gait not observed. Laboratory Results - last 24 hr 06/01/19 06/04/19 06/05/19 19:45 22:45 05:55 WBC 4.8 RBC 3.32 L Hgb 9.5 L Hct 28.6 L MCV 86.2 MCH 28.6 MCHC 33.2 RDW 15.6 Plt Count 236 MPV 8.2 Absolute Neuts (auto) 2.7 Neutrophils % 57.2 Lymphocytes % 33.2 Monocytes % 6.1 Eosinophils % 3.0 Basophils % 0.5 Nucleated RBC % 0 Sodium Potassium Chloride Carbon Dioxide Anion Gap BUN Creatinine Est GFR (CKD-EPI)AfAm Est GFR (CKD-EPI)NonAf POC Glucometer 90 Random Glucose Calcium Magnesium Total Bilirubin AST ALT Alkaline Phosphatase Total Protein Albumin Blood Type O POSITIVE Antibody Screen Negative Crossmatch See Detail 06/05/19 05:55 WBC RBC Hgb Hct MCV MCH MCHC RDW Plt Count MPV Absolute Neuts (auto) Neutrophils % Lymphocytes % Monocytes % Eosinophils % Basophils % Nucleated RBC % Sodium 143 Potassium 3.4 L Chloride 110 H Carbon Dioxide 28 Anion Gap 5 L BUN 4.1 L Creatinine 0.7 Est GFR (CKD-EPI)AfAm 95.51 Est GFR (CKD-EPI)NonAf 82.41 POC Glucometer Random Glucose 83 Calcium 7.7 L Magnesium 1.8 Total Bilirubin 0.6 AST 26 ALT 22 Alkaline Phosphatase 121 H Total Protein 7.0 Albumin 2.6 L Blood Type Antibody Screen Crossmatch Active Medications Generic Name Dose Route Start Last Admin Trade Name Freq PRN Reason Stop Dose Admin Acetaminophen 650 mg 06/02/19 13:02 06/05/19 12:40 Tylenol - PO 650 mg Q6H PRN Administration PAIN Albuterol Sulfate 1 amp 06/04/19 13:57 06/04/19 13:53 Ventolin 0.083% Nebulizer Soln - NEB 1 amp Q4H PRN Administration SHORT OF BREATH/WHEEZING Amlodipine Besylate 10 mg 06/04/19 10:00 06/05/19 09:41 Norvasc - PO 10 mg DAILY [facility] Administration Carvedilol 12.5 mg 06/04/19 10:00 06/05/19 09:41 Coreg - PO 12.5 mg DAILY [facility] Administration Potassium Chloride/Dextrose/Sod Cl 20 meq in 1,000 mls @ 83 mls/hr 06/02/19 02 :45 06/04/19 09:19 D5-1/2ns+20 Meq Kcl - IV Not Given ASDIR [facility] Insulin Aspart 1 vial 06/02/19 22:00 06/04/19 22:45 Novolog Vial Sliding Scale - SQ Not Given [facility] Protocol Pantoprazole Sodium 40 mg 06/02/19 10:00 06/05/19 09:41 Protonix - PO 40 mg BID [facility] Administration ASSESSMENT/PLAN: Problem List - Problems (1) Hematochezia Code(s): K92.1 - MELENA (2) GI bleeding Assessment/Plan: colonoscopy 06/04/2019: mucosa of the esophagus appeared normal, mucoa of the stomach appeared normal. the duodenal mucosa showed no abnormalities in the duodenal bulb and the 2nd part duodenum. retroflex views in the stomach not done 06/03 to hypoxemia requiring bag mask ventilation. on clears, advance per GI. monitor for further bleeding episodes Code(s): K92.2 - GASTROINTESTINAL HEMORRHAGE, UNSPECIFIED (3) Chronic osteoarthritis Code(s): M19.90 - UNSPECIFIED OSTEOARTHRITIS, UNSPECIFIED SITE (4) Chronic venous stasis Code(s): I87.8 - OTHER SPECIFIED DISORDERS OF VEINS (5) Elevated alkaline phosphatase level Code(s): R74.8 - ABNORMAL LEVELS OF OTHER SERUM ENZYMES (6) HTN (hypertension) Assessment/Plan: stable on norvasc and coreq Code(s): I10 - ESSENTIAL (PRIMARY) HYPERTENSION (7) Hyperlipidemia Assessment/Plan: on no home meds Code(s): E78.5 - HYPERLIPIDEMIA, UNSPECIFIED (8) Prophylactic measure Assessment/Plan: no a/c due to gi bleed Code(s): Z29.9 - ENCOUNTER FOR PROPHYLACTIC MEASURES, UNSPECIFIED Visit type - Emergency Visit Emergency Visit: Yes ED Registration Date: 06/01/19 Care time: The patient presented to the Emergency Department on the above date and was hospitalized for further evaluation of their emergent condition. - New Patient This patient is new to me today: Yes Date on this admission: 06/05/19 - Critical Care Critical Care patient: No - Discharge Referral Referred to [facility] Med P.C.: No
--- NOTE | 2019-06-05 16:06 | PATH ---
Surgical Pathology Report Patient Name: FREDDY LAUREN [facility]. Rec. #: [id number] /Age/Gender: 1940 (Age: 79) / F Account: [id number] Location: 4 W TELEMETRY U Taken: 06/04/2019 Received: 06/04/2019 Reported: 06/05/2019 Physicians: Ladi Stein MD Specimen(s) Received A: LEFT COLON ERYTHEMA B: SIGMOID POLYP C: RECTOSIGMOID POLYP Clinical History Hematochezia Postoperative diagnosis: Diverticulosis, polyps Final Diagnosis A. COLON, LEFT, ERYTHEMA, BIOPSY: COLONIC MUCOSA WITH MILD VASCULAR CONGESTION, MILD EXTRAVASATION OF RED BLOOD CELLS AND LYMPHOID AGGREGATE WITHIN LAMINA PROPRIA. B. SIGMOID COLON, POLYP, POLYPECTOMY TUBULAR ADENOMA. C. RECTOSIGMOID COLON, POLYP, POLYPECTOMY: TUBULOVILLOUS ADENOMA. NO DYSPLASIA IDENTIFIED. Electronically Signed Maame Donnelly M.D. Gross Description A. Received in formalin, labeled "left colon" are 4 perez, irregular portions of soft tissue averaging 0.2 cm. in greatest dimension. The specimens are submitted in toto in one cassette. B. Received in formalin, labeled "sigmoid polyp" are 2 perez, irregular portions of soft tissue measuring 0.2 and 0.5 cm. in greatest dimension. The specimens are submitted in toto in one cassette. C. Received in formalin, labeled "rectosigmoid polyp" is a perez, polypoid portion of soft tissue measuring 0.7 cm. in greatest dimension. The specimen is submitted in toto in one cassette. 06/04/[address] [facility]
[2019-06-05] MEDS: NICOTINE 21 MG/24 HOURS TOPICAL PATCH TD SCH (18:02)
[2019-06-05] MEDS: INSULIN SLIDING SCALE (NOVOLOG) 1 VIAL SQ SCH (21:39)
[2019-06-06] MEDS: ACETAMINOPHEN 325 MG TABLET (FP) PO PRN ×2 (01:24→20:21)
[2019-06-06 08:03] LABS: BASO % 0.3 % (0-2.0); EOS % 3.1 % (0-4.5); HEMATOCRIT 26.5 % (32.4-45.2); HEMOGLOBIN 8.9 GM/dL (10.7-15.3); MCHC 33.5 g/dl (32.0-36.0); MEAN CELL VOLUME 86.5 fl (80-96); MEAN PLT VOLUME 8.3 fl (7.5-11.1); MONO % 6.4 % (3.8-10.2); NEUT % 55.2 % (42.8-82.8); PLATELET COUNT 224 K/MM3 (134-434); RBC 3.06 M/mm3 (3.60-5.2); RDW 15.5 % (11.6-15.6); WHITE BLOOD COUNT 4.3 K/mm3 (4.0-10.0)
[2019-06-06 08:26] LABS: ALBUMIN 2.4 g/dl (3.4-5.0); BILIRUBIN,TOTAL 0.3 mg/dL (0.2-1); BLOOD UREA NITROGEN 3.6 mg/dL (7-18); CALCIUM 7.6 mg/dL (8.5-10.1); CREATININE 0.6 mg/dL (0.55-1.3); POTASSIUM 3.4 mmol/L (3.5-5.1); TOT PROT 6.4 g/dl (6.4-8.2)
[2019-06-06] MEDS ORDERED: POTASSIUM CHLORIDE TABS 20 MEQ TABLET.ER (FP) PO ONE (09:00)
[2019-06-06] MEDS: amLODIPine BESYLATE 10 MG TABLET (FP) PO SCH (10:35)
[2019-06-06] MEDS: PANTOPRAZOLE 40 MG TABLET PO SCH ×2 (10:35→21:53)
[2019-06-06] MEDS: NICOTINE 21 MG/24 HOURS TOPICAL PATCH TD SCH (10:35)
--- NOTE | 2019-06-06 13:38 | CON.CARD ---
Consult Consult Specialty:: Cardiology Referred by:: Brit Reason for Consultation:: GI bleeding - History of Present Illness Chief Complaint: hematochezia History of Present Illness: She is a 79 year old woman with a history of hypertension, dyslipidemia, chronic OA (knees), chronic venous stasis, b/l BLE de souza, chronic tobacco usage , meningioma. She was admitted with hematochezia. She had a colonoscopy on 06/04/2019 and had episode of hypoxemia that occurred requiring bag mask ventilation. There is a questionable history of PAF not on AC. She had an asymptomatic nocturnal pause of 3.7 seconds while sleeping last night around 5 am 06/06/19. - History Source History Provided By: Patient, Medical Record - Past Medical History Cardio/Vascular: Yes: HTN Rheumatology: Yes: Other (RA) - Past Surgical History Past Surgical History: Yes: Appendectomy - Alcohol/Substance Use Hx Alcohol Use: No - Smoking History Smoking history: Never smoked Have you smoked in the past 12 months: No Aproximately how many cigarettes per day: 20 - Social History Usual Living Arrangement: Alone ADL: Independent History of Recent Travel: No Home Medications - Allergies Allergies/Adverse Reactions: Allergies Allergy/AdvReac Type Severity Reaction Status Date / Time No Known Allergies Allergy Verified 06/01/19 16:45 - Home Medications Home Medications: Ambulatory Orders Amlodipine Besylate 10 mg PO DAILY 09/11/17 Carvedilol [Coreg] 12.5 mg PO DAILY 09/11/17 Furosemide 40 mg PO DAILY 12/30/18 Meloxicam 15 mg PO DAILY 12/30/18 Vital Signs: Vital Signs Temperature 98.5 F 06/06/19 06:00 Pulse Rate 88 06/06/19 06:00 Respiratory Rate 20 06/06/19 06:00 Blood Pressure 136/60 06/06/19 06:00 O2 Sat by Pulse Oximetry (%) 98 06/05/19 21:00 Constitutional: Yes: No Distress, Calm, Obese Eyes: Yes: Conjunctiva Clear, EOM Intact HENT: Yes: Atraumatic, Normocephalic Neck: Yes: Trachea Midline Respiratory: Yes: CTA Bilaterally Gastrointestinal: Yes: Normal Bowel Sounds, Soft Cardiovascular: Yes: Regular Rate and Rhythm JVD: No Carotid Bruit: No PMI: Non-Displaced Heart Sounds: Yes: S1, S2 Musculoskeletal: Yes: WNL Edema: No Peripheral Pulses WNL: Yes - Other Data Labs, Other Data: CBC, BMP 06/06/19 06:40 06/06/19 06:40 INR, PTT INR 1.13 (0.83-1.09) H 06/01/19 19:45 Imaging - Results Chest X-ray: Pending (none) EKG: Report Reviewed (nsr old iwmi) Assessment/Plan She is a 79 year old woman with a history of hypertension, dyslipidemia, chronic OA (knees), chronic venous stasis, b/l BLE de souza, chronic tobacco usage , meningioma. She was admitted with hematochezia. She had a colonoscopy on 06/04/2019 and had episode of hypoxemia that occurred requiring bag mask ventilation. There is a questionable history of PAF not on AC. She had an asymptomatic nocturnal pause of 3.7 seconds while sleeping last night around 5 am 06/06/19. Bradycardia -no need for urgent intervention for asymptomatic nocturnal pause, especially while on beta stefan. -hold coreg and continue telemetry -unclear hx of PAF, obviously no AC given hematochezia -echo -would also consider sleep apnea evaluation given her size and body habitus, as this can contribute to nocturnal arrhythmias
[2019-06-06] MEDS: CARVEDILOL 12.5 MG TABLET (FP) PO SCH (13:56)
[2019-06-06] MEDS: FUROSEMIDE 40 MG TABLET (FP) PO SCH (13:58)
--- NOTE | 2019-06-06 15:08 | PN ---
Physical Exam: SUBJECTIVE: Patient seen and examined at the bedside. Patient sitting up in bed, eating lunch in no acute distress. Had 3 bowel movements this morning, brown in color. patient denies any further rectal bleeding. wants to eat. this morning around 0400 she was noted to have a 3.8 second pause on staff educator while she was asleep. She denies any chest pain or shortness of breath. OBJECTIVE: was informed during my afternoon rounds that patient had a 3.8 second pause this morning around 0400a.m. cardiology consulted and coreq discontinued echo shows: ef 60%, mild mitral awais calc, trace mitral regurg, trace tr, mild aortic valve thickening Patient is a 79 year old male with a significant past medical history of hypertension, dyslipidemia, chronic OA (knees), chronic venous stasis, b/l BLE de souza, chronic tobacco usage, meningioma. Patient presents to the ED for c/o of bloody BM mixed with clots. Patient had a colonoscopy on 06/04/2019 and had episode of hypoxemia that occurred requiring bag mask ventilation. Overnight developed noctural 3.8 second pause on monitor. patient denies any symptoms. Vital Signs Period Temp Pulse Resp BP Sys/Glez Pulse Ox Last 24 Hr 97.4 F-98.5 F 71-88 20-20 133-141/60-75 98 GENERAL: The patient is awake, alert, and fully oriented, in no acute distress. HEAD: Normal with no signs of trauma. EYES: PERRL, extraocular movements intact, sclera anicteric, conjunctiva clear. No ptosis. ENT: Ears normal, nares patent, oropharynx clear without exudates NECK: Trachea midline, full range of motion, supple. LUNGS: Breath sounds equal, clear to auscultation bilaterally, no wheezes HEART: Regular rate and rhythm ABDOMEN: Soft, nontender, nondistended, normoactive bowel sounds EXTREMITIES: lower ext +1 bilateral edema, dry skin NEUROLOGICAL: Normal speech, gait not observed. Laboratory Results - last 24 hr 06/05/19 06/06/19 06/06/19 21:36 06:40 06:40 WBC 4.3 RBC 3.06 L Hgb 8.9 L Hct 26.5 L MCV 86.5 MCH 29.0 MCHC 33.5 RDW 15.5 Plt Count 224 MPV 8.3 Absolute Neuts (auto) 2.4 Neutrophils % 55.2 Lymphocytes % 35.0 Monocytes % 6.4 Eosinophils % 3.1 Basophils % 0.3 Nucleated RBC % 0 Sodium 143 Potassium 3.4 L Chloride 109 H Carbon Dioxide 29 Anion Gap 5 L BUN 3.6 L Creatinine 0.6 Est GFR (CKD-EPI)AfAm 100.48 Est GFR (CKD-EPI)NonAf 86.69 POC Glucometer 95 Random Glucose 77 Calcium 7.6 L Magnesium 2.0 Total Bilirubin 0.3 AST 22 ALT 21 Alkaline Phosphatase 115 Total Protein 6.4 Albumin 2.4 L 06/06/19 11:41 WBC RBC Hgb Hct MCV MCH MCHC RDW Plt Count MPV Absolute Neuts (auto) Neutrophils % Lymphocytes % Monocytes % Eosinophils % Basophils % Nucleated RBC % Sodium Potassium Chloride Carbon Dioxide Anion Gap BUN Creatinine Est GFR (CKD-EPI)AfAm Est GFR (CKD-EPI)NonAf POC Glucometer 114 Random Glucose Calcium Magnesium Total Bilirubin AST ALT Alkaline Phosphatase Total Protein Albumin Active Medications Generic Name Dose Route Start Last Admin Trade Name Freq PRN Reason Stop Dose Admin Acetaminophen 650 mg 06/02/19 13:02 06/06/19 01:24 Tylenol - PO 650 mg Q6H PRN Administration PAIN Albuterol Sulfate 1 amp 06/04/19 13:57 06/04/19 13:53 Ventolin 0.083% Nebulizer Soln - NEB 1 amp Q4H PRN Administration SHORT OF BREATH/WHEEZING Amlodipine Besylate 10 mg 06/04/19 10:00 06/06/19 10:35 Norvasc - PO 10 mg DAILY JUANCARLOS Administration Furosemide 40 mg 06/06/19 13:45 06/06/19 13:58 Lasix - PO 40 mg DAILY JUANCARLOS Administration Insulin Aspart 1 vial 06/02/19 22:00 06/05/19 21:39 Novolog Vial Sliding Scale - SQ Not Given HS JUANCARLOS Protocol Nicotine 21 mg 06/05/19 17:00 06/06/19 10:35 Nicoderm Patch - TD 21 mg DAILY JUANCARLOS Administration Pantoprazole Sodium 40 mg 06/02/19 10:00 06/06/19 10:35 Protonix - PO 40 mg BID JUANCARLOS Administration ASSESSMENT/PLAN: Problem List - Problems (1) Bradycardia Assessment/Plan: 3.8 second pauses seen on staff educator at 0400 today. holding dose of coreq per cardiology echo as noted above patient asymptomatic Code(s): R00.1 - BRADYCARDIA, UNSPECIFIED (2) Hematochezia Code(s): K92.1 - MELENA (3) GI bleeding Assessment/Plan: colonoscopy 06/04/2019: mucosa of the esophagus appeared normal, mucoa of the stomach appeared normal. the duodenal mucosa showed no abnormalities in the duodenal bulb and the 2nd part duodenum. retroflex views in the stomach not done 06/03 to hypoxemia requiring bag mask ventilation. on clears, advance per GI. monitor for further bleeding episodes Code(s): K92.2 - GASTROINTESTINAL HEMORRHAGE, UNSPECIFIED (4) Chronic osteoarthritis Code(s): M19.90 - UNSPECIFIED OSTEOARTHRITIS, UNSPECIFIED SITE (5) Chronic venous stasis Code(s): I87.8 - OTHER SPECIFIED DISORDERS OF VEINS (6) Elevated alkaline phosphatase level Code(s): R74.8 - ABNORMAL LEVELS OF OTHER SERUM ENZYMES (7) HTN (hypertension) Assessment/Plan: stable on norvasc, coreq on hold for bradycardia. Code(s): I10 - ESSENTIAL (PRIMARY) HYPERTENSION (8) Hyperlipidemia Assessment/Plan: on no home meds Code(s): E78.5 - HYPERLIPIDEMIA, UNSPECIFIED (9) Prophylactic measure Assessment/Plan: no a/c due to gi bleed Code(s): Z29.9 - ENCOUNTER FOR PROPHYLACTIC MEASURES, UNSPECIFIED Visit type - Emergency Visit Emergency Visit: Yes ED Registration Date: 06/01/19 Care time: The patient presented to the Emergency Department on the above date and was hospitalized for further evaluation of their emergent condition. - New Patient This patient is new to me today: No - Critical Care Critical Care patient: No - Discharge Referral Referred to [facility] Med P.C.: No
--- NOTE | 2019-06-06 16:24 | ECHO ---
Name: FREDDY LAUREN Exam:Adult Echocardiogram Study Date: 06/06/2019 03:26 PM Age: 79 yrs Reason For Study: Bradycardia Height: 63 in Weight: 256 lb BSA: 2.1 m2 MMode/2D Measurements & Calculations IVSd: 0.98 cm Ao root diam: 3.3 cm LVIDd: 4.1 cm LA dimension: 2.4 cm LVIDs: 2.8 cm LVPWd: 1.1 cm LVPWs: 1.3 cm EDV(Teich): 74.9 ml ESV(Teich): 29.0 ml RV S Osei: 12.1 cm/sec Doppler Measurements & Calculations MV E max osei: 75.0 cm/sec Ao V2 max: 170.2 cm/sec MV A max osei: 72.1 cm/sec Ao max P.7 mmHg MV E/A: 1.0 MV dec time: 0.13 sec LV V1 max P.6 mmHg PA V2 max: 110.6 cm/sec LV V1 max: 107.1 cm/sec PA max P.9 mmHg Med Peak E' Osei: 5.7 cm/sec Med E/e': 13.2 Lat Peak E' Osei: 10.1 cm/sec Lat E/e': 7.4 Procedure A complete two-dimensional transthoracic echocardiogram was performed (2D, M-mode, Doppler and color flow Doppler). The study was technically difficult with many images being suboptimal in quality. Left Ventricle The left ventricular size, thickness and function are normal. Ejection Fraction = 60%. E/A reversal c onsistent with but not diagnostic of poor LV compliance. The left ventricular wall motion is normal. Right Ventricle The right ventricle is normal in size and function. Atria Normal left and right atrial size and function. Mitral Valve There is mild mitral annular calcification. There is mild mitral valve thickening. There is trace kyleigh ral regurgitation. Tricuspid Valve The tricuspid valve is normal in structure and function. There is trace tricuspid regurgitation. Ther e was insufficient TR detected to calculate RV systolic pressure. Aortic Valve There is mild aortic valve thickening. Pulmonic Valve The pulmonic valve is not well visualized. Great Vessels The aortic root is normal size. Pericardium/Pleura There is no pericardial effusion. There is no pleural effusion. Interpretation Summary The study was technically difficult with many images being suboptimal in quality. The left ventricular size, thickness and function are normal Ejection Fraction = 60%. There is mild mitral annular calcification. There is mild mitral valve thickening. There is trace mitral regurgitation. There is trace tricuspid regurgitation. There is mild aortic valve thickening. MD Omero Bourne 06/06/2019 04:23 PM
[2019-06-07 07:34] LABS: BASO % 0.5 % (0-2.0); EOS % 2.4 % (0-4.5); HEMATOCRIT 29.2 % (32.4-45.2); HEMOGLOBIN 9.8 GM/dL (10.7-15.3); LYMPH % 37.1 % (8-40); MCHC 33.7 g/dl (32.0-36.0); MEAN CELL VOLUME 86.2 fl (80-96); MEAN PLT VOLUME 8.1 fl (7.5-11.1); MONO % 7.9 % (3.8-10.2); NEUT % 52.1 % (42.8-82.8); PLATELET COUNT 267 K/MM3 (134-434); RBC 3.39 M/mm3 (3.60-5.2); RDW 15.7 % (11.6-15.6); WHITE BLOOD COUNT 4.6 K/mm3 (4.0-10.0)
[2019-06-07 08:13] LABS: ALBUMIN 2.6 g/dl (3.4-5.0); BILIRUBIN,TOTAL 0.3 mg/dL (0.2-1); BLOOD UREA NITROGEN 8.4 mg/dL (7-18); CALCIUM 7.9 mg/dL (8.5-10.1); CREATININE 0.7 mg/dL (0.55-1.3); MAGNESIUM 2.1 mg/dL (1.8-2.4); POTASSIUM 3.5 mmol/L (3.5-5.1); TOT PROT 7.1 g/dl (6.4-8.2)
[2019-06-07] MEDS: amLODIPine BESYLATE 10 MG TABLET (FP) PO SCH (09:46)
[2019-06-07] MEDS: PANTOPRAZOLE 40 MG TABLET PO SCH ×2 (09:46→22:10)
[2019-06-07] MEDS: FUROSEMIDE 40 MG TABLET (FP) PO SCH (09:46)
[2019-06-07] MEDS: NICOTINE 21 MG/24 HOURS TOPICAL PATCH TD SCH (09:46)
--- NOTE | 2019-06-07 11:17 | CON.PULM ---
Consult Consult Specialty:: PULM/CCM Referred by:: Hospitalist Reason for Consultation:: R/O OSAS - History of Present Illness Chief Complaint: Hematochezia History of Present Illness: 79 F, 1 PPD active smoker, hypertension, dyslipidemia, OA, chronic venous stasis , b/l BLE de souza, and meningioma. Admitted via the ER due to hematochezia. Patient apparently had a colonoscopy on 06/04/2019 and developed hypoxemia that requiring bag mask ventilation. There is a questionable history of PAF. She does snore but sleep by herself so there is no history of witnessed apneas. She has awoken from sleep due to gasping. She does experience Excessive Daytime Sleepiness (EDS). She was noted on Telemetry monitoring to have a nocturnal pause of 3.7 seconds around 5AM on 06/06/19. - History Source History Provided By: Patient Limitations to Obtaining History: No Limitations - Past Medical History Cardio/Vascular: Yes: HTN Pulmonary: Yes: Bronchitis. No: Asthma, Cancer, COPD, O2 Dependent, Pneumonia, Previously Intubated, Pulmonary Embolus, Pulmonary Fibrosis, Sleep Apnea Rheumatology: Yes: Other (RA) - Past Surgical History Past Surgical History: Yes: Appendectomy - Alcohol/Substance Use Hx Alcohol Use: No - Smoking History Smoking history: Never smoked Have you smoked in the past 12 months: No Aproximately how many cigarettes per day: 20 - Social History Usual Living Arrangement: Alone ADL: Independent History of Recent Travel: No Home Medications - Allergies Allergies/Adverse Reactions: Allergies Allergy/AdvReac Type Severity Reaction Status Date / Time No Known Allergies Allergy Verified 06/01/19 16:45 - Home Medications Home Medications: Ambulatory Orders Amlodipine Besylate 10 mg PO DAILY 09/11/17 Carvedilol [Coreg] 12.5 mg PO DAILY 09/11/17 Furosemide 40 mg PO DAILY 12/30/18 Meloxicam 15 mg PO DAILY 12/30/18 Review of Systems - Review of Systems Constitutional: reports: Malaise. denies: Chills, Fever, Night Sweats Eyes: reports: No Symptoms HENT: reports: No Symptoms Neck: reports: No Symptoms Cardiovascular: denies: Chest Pain, Palpitations, Shortness of Breath Respiratory: reports: Snoring. denies: Cough, Hemoptysis, SOB, SOB on Exertion , Wheezing Gastrointestinal: reports: Rectal Bleeding Genitourinary: reports: No Symptoms Breasts: reports: No Symptoms Reported Musculoskeletal: reports: No Symptoms Integumentary: reports: No Symptoms Neurological: reports: No Symptoms Endocrine: reports: No Symptoms Hematology/Lymphatic: reports: No Symptoms Psychiatric: reports: No Symptoms Physical Exam Vital Sings: Vital Signs Temperature 98 F 06/07/19 09:00 Pulse Rate 86 06/07/19 09:00 Respiratory Rate 20 06/07/19 09:00 Blood Pressure 123/57 L 06/07/19 09:00 O2 Sat by Pulse Oximetry (%) 98 06/07/19 09:00 Constitutional: Yes: No Distress, Calm, Obese Eyes: Yes: Conjunctiva Clear, EOM Intact HENT: Yes: Atraumatic, Normocephalic Neck: Yes: Supple, Trachea Midline Cardiovascular: Yes: Regular Rate and Rhythm Respiratory: Yes: Diminished. No: Accessory Muscle Use, Rales, Rhonchi, SOB, SOB on Exertion, Stridor, Tachypnea, Wheezes ...Inspection: Yes: WNL ...Clubbing: No Gastrointestinal: Yes: Normal Bowel Sounds, Soft, Abdomen, Obese Renal/: Yes: WNL Musculoskeletal: Yes: WNL Extremities: Yes: WNL Edema: No Peripheral Pulses WNL: Yes Integumentary: Yes: WNL Neurological: Yes: WNL, Alert, Oriented ...Motor Strength: WNL Psychiatric: Yes: WNL, Alert, Oriented Labs: CBC, BMP 06/07/19 06:52 06/07/19 06:52 Imaging - Results Cat Scan: Report Reviewed Problem List - Problems (1) Tobacco abuse Code(s): Z72.0 - TOBACCO USE (2) Bradycardia Code(s): R00.1 - BRADYCARDIA, UNSPECIFIED (3) Chronic osteoarthritis Code(s): M19.90 - UNSPECIFIED OSTEOARTHRITIS, UNSPECIFIED SITE (4) Chronic venous stasis Code(s): I87.8 - OTHER SPECIFIED DISORDERS OF VEINS (5) GI bleeding Code(s): K92.2 - GASTROINTESTINAL HEMORRHAGE, UNSPECIFIED (6) HTN (hypertension) Code(s): I10 - ESSENTIAL (PRIMARY) HYPERTENSION (7) Hematochezia Code(s): K92.1 - MELENA (8) Hyperlipidemia Code(s): E78.5 - HYPERLIPIDEMIA, UNSPECIFIED (9) Meningioma Code(s): D32.9 - BENIGN NEOPLASM OF MENINGES, UNSPECIFIED (10) Tobacco use Code(s): Z72.0 - TOBACCO USE Assessment/Plan IMP: High clinical suspicion of OSAS & COPD PLAN: Sleep screen No smoking was counseled O2 as needed BD TX PRN Will need outpatient PFTs and LDCT can be obtained Mechanical VTE prophylaxis Normal transfusion thresholds GI workup Will follow Thank you. Dr Blue
[2019-06-07] MEDS: ACETAMINOPHEN 325 MG TABLET (FP) PO PRN ×2 (13:08→21:00)
--- NOTE | 2019-06-07 13:23 | PN ---
Progress Note, Physician Chief Complaint: no complaints tele nsr, no further eric. History of Present Illness: She is a 79 year old woman with a history of hypertension, dyslipidemia, chronic OA (knees), chronic venous stasis, b/l BLE de souza, chronic tobacco usage , meningioma. She was admitted with hematochezia. She had a colonoscopy on 06/04/2019 and had episode of hypoxemia that occurred requiring bag mask ventilation. There is a questionable history of PAF not on AC. She had an asymptomatic nocturnal pause of 3.7 seconds while sleeping last night around 5 am 06/06/19. echo 06/06/19 normal ef. no sig valve disease. - Current Medication List Current Medications: Active Medications Acetaminophen (Tylenol -) 650 mg PO Q6H PRN PRN Reason: PAIN Last Admin: 06/07/19 13:08 Dose: 650 mg Albuterol Sulfate (Ventolin 0.083% Nebulizer Soln -) 1 amp NEB Q4H PRN PRN Reason: SHORT OF BREATH/WHEEZING Last Admin: 06/04/19 13:53 Dose: 1 amp Amlodipine Besylate (Norvasc -) 10 mg PO DAILY [facility] Last Admin: 06/07/19 09:46 Dose: 10 mg Furosemide (Lasix -) 40 mg PO DAILY [facility] Last Admin: 06/07/19 09:46 Dose: 40 mg Nicotine (Nicoderm Patch -) 21 mg TD DAILY [facility] Last Admin: 06/07/19 09:46 Dose: 21 mg Pantoprazole Sodium (Protonix -) 40 mg PO BID [facility] Last Admin: 06/07/19 09:46 Dose: 40 mg - Objective Vital Signs: Vital Signs Temperature 98 F 06/07/19 09:00 Pulse Rate 86 06/07/19 09:00 Respiratory Rate 20 06/07/19 09:00 Blood Pressure 123/57 L 06/07/19 09:00 O2 Sat by Pulse Oximetry (%) 98 06/07/19 09:00 Constitutional: Yes: No Distress, Calm Eyes: Yes: Conjunctiva Clear, EOM Intact HENT: Yes: Atraumatic, Normocephalic Neck: Yes: Supple, Trachea Midline Cardiovascular: Yes: Regular Rate and Rhythm Respiratory: Yes: CTA Bilaterally Gastrointestinal: Yes: Normal Bowel Sounds, Abdomen, Obese Musculoskeletal: Yes: WNL Extremities: Yes: WNL Edema: No Labs: CBC, BMP 06/07/19 06:52 06/07/19 06:52 INR, PTT INR 1.13 (0.83-1.09) H 06/01/19 19:45 Assessment/Plan She is a 79 year old woman with a history of hypertension, dyslipidemia, chronic OA (knees), chronic venous stasis, b/l BLE de souza, chronic tobacco usage , meningioma. She was admitted with hematochezia. She had a colonoscopy on 06/04/2019 and had episode of hypoxemia that occurred requiring bag mask ventilation. There is a questionable history of PAF not on AC. She had an asymptomatic nocturnal pause of 3.7 seconds while sleeping last night around 5 am 06/06/19. Bradycardia -no need for urgent intervention for asymptomatic nocturnal pause, especially while on beta stefan. -hold coreg. dc telemetry -unclear hx of PAF, obviously no AC given hematochezia -echo shows normal EF. -Pulm appreciated. Needs PFTS and outpatient sleep apnea evaluation given her size and body habitus, as this can contribute to nocturnal arrhythmias
--- NOTE | 2019-06-07 15:32 | PN ---
Physical Exam: SUBJECTIVE: Patient seen and examined. no acute events overnight, no chest pain. no bm today. denies nausea/vomiting. OBJECTIVE: per cardiology d/c tele cardiac specialist with sb and episodes of tachycardia, asymptomatic coreq on hold for significant pauses for sleep screen today discharge in a.m. planned Patient is a 79 year old male with a significant past medical history of hypertension, dyslipidemia, chronic OA (knees), chronic venous stasis, b/l BLE de souza, chronic tobacco usage, meningioma. Patient presents to the ED for c/o of bloody BM mixed with clots. Patient had a colonoscopy on 06/04/2019 and had episode of hypoxemia that occurred requiring bag mask ventilation. Overnight developed noctural 3.8 second pause on monitor. patient denies any symptoms. Vital Signs Period Temp Pulse Resp BP Sys/Glez Pulse Ox Last 24 Hr 97.8 F-98.1 F 75-88 20-20 123-147/57-71 98-98 GENERAL: The patient is awake, alert, and fully oriented, in no acute distress. HEAD: Normal with no signs of trauma. EYES: PERRL, extraocular movements intact, sclera anicteric, conjunctiva clear. No ptosis. ENT: Ears normal, nares patent, oropharynx clear without exudates NECK: Trachea midline, full range of motion, supple. LUNGS: Breath sounds equal, clear to auscultation bilaterally, no wheezes HEART: Regular rate and rhythm ABDOMEN: Soft, nontender, nondistended, normoactive bowel sounds EXTREMITIES: lower ext +1 bilateral edema, dry skin NEUROLOGICAL: Normal speech, gait not observed. Laboratory Results - last 24 hr 06/07/19 06/07/19 06:52 06:52 WBC 4.6 RBC 3.39 L Hgb 9.8 L Hct 29.2 L MCV 86.2 MCH 29.0 MCHC 33.7 RDW 15.7 H Plt Count 267 MPV 8.1 Absolute Neuts (auto) 2.4 Neutrophils % 52.1 Lymphocytes % 37.1 Monocytes % 7.9 Eosinophils % 2.4 Basophils % 0.5 Nucleated RBC % 0 Sodium 142 Potassium 3.5 Chloride 107 Carbon Dioxide 31 Anion Gap 4 L BUN 8.4 Creatinine 0.7 Est GFR (CKD-EPI)AfAm 95.51 Est GFR (CKD-EPI)NonAf 82.41 Random Glucose 92 Calcium 7.9 L Magnesium 2.1 Total Bilirubin 0.3 AST 21 ALT 22 Alkaline Phosphatase 125 H Total Protein 7.1 Albumin 2.6 L Active Medications Generic Name Dose Route Start Last Admin Trade Name Freq PRN Reason Stop Dose Admin Acetaminophen 650 mg 06/02/19 13:02 06/07/19 13:08 Tylenol - PO 650 mg Q6H PRN Administration PAIN Albuterol Sulfate 1 amp 06/04/19 13:57 06/04/19 13:53 Ventolin 0.083% Nebulizer Soln - NEB 1 amp Q4H PRN Administration SHORT OF BREATH/WHEEZING Amlodipine Besylate 10 mg 06/04/19 10:00 06/07/19 09:46 Norvasc - PO 10 mg DAILY JUANCARLOS Administration Furosemide 40 mg 06/06/19 13:45 06/07/19 09:46 Lasix - PO 40 mg DAILY JUANCARLOS Administration Nicotine 21 mg 06/05/19 17:00 06/07/19 09:46 Nicoderm Patch - TD 21 mg DAILY JUANCARLOS Administration Pantoprazole Sodium 40 mg 06/02/19 10:00 06/07/19 09:46 Protonix - PO 40 mg BID JUANCARLOS Administration ASSESSMENT/PLAN: Problem List - Problems (1) Bradycardia Assessment/Plan: 3.8 second pauses seen on cardiac specialist on 06/06/2019 coreq on hold echo as noted above patient asymptomatic discontinue telemetry Code(s): R00.1 - BRADYCARDIA, UNSPECIFIED (2) Hematochezia Assessment/Plan: resolved Code(s): K92.1 - MELENA (3) GI bleeding Assessment/Plan: colonoscopy 06/04/2019: mucosa of the esophagus appeared normal, mucoa of the stomach appeared normal. the duodenal mucosa showed no abnormalities in the duodenal bulb and the 2nd part duodenum. retroflex views in the stomach not done 06/03 to hypoxemia requiring bag mask ventilation. advance diet monitor for further bleeding episodes Code(s): K92.2 - GASTROINTESTINAL HEMORRHAGE, UNSPECIFIED (4) Chronic osteoarthritis Assessment/Plan: tylenol prn Code(s): M19.90 - UNSPECIFIED OSTEOARTHRITIS, UNSPECIFIED SITE (5) Chronic venous stasis Code(s): I87.8 - OTHER SPECIFIED DISORDERS OF VEINS (6) Elevated alkaline phosphatase level Code(s): R74.8 - ABNORMAL LEVELS OF OTHER SERUM ENZYMES (7) HTN (hypertension) Assessment/Plan: stable on norvasc, coreq on hold for bradycardia. Code(s): I10 - ESSENTIAL (PRIMARY) HYPERTENSION (8) Hyperlipidemia Assessment/Plan: on no home meds Code(s): E78.5 - HYPERLIPIDEMIA, UNSPECIFIED (9) JESSICA (obstructive sleep apnea) Assessment/Plan: possible osas per pulmonary for a Sleep screen Code(s): G47.33 - OBSTRUCTIVE SLEEP APNEA (ADULT) (PEDIATRIC) (10) Prophylactic measure Assessment/Plan: no a/c due to gi bleed Code(s): Z29.9 - ENCOUNTER FOR PROPHYLACTIC MEASURES, UNSPECIFIED Visit type - Emergency Visit Emergency Visit: Yes ED Registration Date: 06/01/19 Care time: The patient presented to the Emergency Department on the above date and was hospitalized for further evaluation of their emergent condition. - New Patient This patient is new to me today: No - Critical Care Critical Care patient: No - Discharge Referral Referred to [facility] No
[2019-06-08] MEDS: FUROSEMIDE 40 MG TABLET (FP) PO SCH (11:43)
[2019-06-08] MEDS: NICOTINE 21 MG/24 HOURS TOPICAL PATCH TD SCH (11:43)
[2019-06-08] MEDS: PANTOPRAZOLE 40 MG TABLET PO SCH (11:43)
[2019-06-08] MEDS: amLODIPine BESYLATE 10 MG TABLET (FP) PO SCH (11:43)
[2019-06-08] MEDS: ACETAMINOPHEN 325 MG TABLET (FP) PO PRN (11:47)
--- NOTE | 2019-06-08 12:32 | PN ---
Progress Note (short form) - Note Progress Note: Resting in NAD. No CP or SOB. No acute events overnight. Sleep screen: AHI 14: Mild to moderate OSAS. Intake & Output 06/05/19 06/06/19 06/07/19 06/08/19 23:59 23:59 23:59 23:59 Intake Total 940 873 9183 520 Output Total 400 Balance 288 758 6393 520 Weight 256 lb Last Vital Signs Temp Pulse Resp BP Pulse Ox 97.8 F 87 20 113/54 L 97 06/08/19 09:55 06/08/19 09:55 06/08/19 09:55 06/08/19 09:55 06/07/19 21:00 Active Medications Acetaminophen (Tylenol -) 650 mg PO Q6H PRN PRN Reason: PAIN Last Admin: 06/08/19 11:47 Dose: 650 mg Albuterol Sulfate (Ventolin 0.083% Nebulizer Soln -) 1 amp NEB Q4H PRN PRN Reason: SHORT OF BREATH/WHEEZING Last Admin: 06/04/19 13:53 Dose: 1 amp Amlodipine Besylate (Norvasc -) 10 mg PO DAILY [facility] Last Admin: 06/08/19 11:43 Dose: 10 mg Furosemide (Lasix -) 40 mg PO DAILY [facility] Last Admin: 06/08/19 11:43 Dose: 40 mg Nicotine (Nicoderm Patch -) 21 mg TD DAILY [facility] Last Admin: 06/08/19 11:43 Dose: 21 mg Pantoprazole Sodium (Protonix -) 40 mg PO BID [facility] Last Admin: 06/08/19 11:43 Dose: 40 mg Constitutional: Yes: No Distress, Calm, Obese Eyes: Yes: Conjunctiva Clear, EOM Intact HENT: Yes: Atraumatic, Normocephalic Neck: Yes: Supple, Trachea Midline Cardiovascular: Yes: Regular Rate and Rhythm Respiratory: Yes: Diminished. No: Accessory Muscle Use, Rales, Rhonchi, SOB, SOB on Exertion, Stridor, Tachypnea, Wheezes ...Inspection: Yes: WNL ...Clubbing: No Gastrointestinal: Yes: Normal Bowel Sounds, Soft, Abdomen, Obese Renal/: Yes: WNL Musculoskeletal: Yes: WNL Extremities: Yes: WNL Edema: No Peripheral Pulses WNL: Yes Integumentary: Yes: WNL Neurological: Yes: WNL, Alert, Oriented ...Motor Strength: WNL Psychiatric: Yes: WNL, Alert, Oriented Labs: Problem List - Problems (1) Tobacco abuse Code(s): Z72.0 - TOBACCO USE (2) Bradycardia Code(s): R00.1 - BRADYCARDIA, UNSPECIFIED (3) Chronic osteoarthritis Code(s): M19.90 - UNSPECIFIED OSTEOARTHRITIS, UNSPECIFIED SITE (4) Chronic venous stasis Code(s): I87.8 - OTHER SPECIFIED DISORDERS OF VEINS (5) GI bleeding Code(s): K92.2 - GASTROINTESTINAL HEMORRHAGE, UNSPECIFIED (6) HTN (hypertension) Code(s): I10 - ESSENTIAL (PRIMARY) HYPERTENSION (7) Hematochezia Code(s): K92.1 - MELENA (8) Hyperlipidemia Code(s): E78.5 - HYPERLIPIDEMIA, UNSPECIFIED (9) Meningioma Code(s): D32.9 - BENIGN NEOPLASM OF MENINGES, UNSPECIFIED (10) Tobacco use Code(s): Z72.0 - TOBACCO USE Assessment/Plan IMP: Mild to moderate OSAS COPD PLAN: Advised patient to follow me in the office to better assess her OSAS & COPD No smoking was counseled Will need outpatient PFTs and LDCT can be obtained DC planning Dr Blue Problem List - Problems (1) Tobacco abuse Code(s): Z72.0 - TOBACCO USE (2) Bradycardia Code(s): R00.1 - BRADYCARDIA, UNSPECIFIED (3) Chronic osteoarthritis Code(s): M19.90 - UNSPECIFIED OSTEOARTHRITIS, UNSPECIFIED SITE (4) Chronic venous stasis Code(s): I87.8 - OTHER SPECIFIED DISORDERS OF VEINS (5) GI bleeding Code(s): K92.2 - GASTROINTESTINAL HEMORRHAGE, UNSPECIFIED (6) HTN (hypertension) Code(s): I10 - ESSENTIAL (PRIMARY) HYPERTENSION (7) Hematochezia Code(s): K92.1 - MELENA (8) Hyperlipidemia Code(s): E78.5 - HYPERLIPIDEMIA, UNSPECIFIED (9) Meningioma Code(s): D32.9 - BENIGN NEOPLASM OF MENINGES, UNSPECIFIED (10) Tobacco use Code(s): Z72.0 - TOBACCO USE
[2019-06-08 13:15] LABS: BASO % 0.9 % (0-2.0); EOS % 1.6 % (0-4.5); HEMATOCRIT 31.6 % (32.4-45.2); HEMOGLOBIN 10.3 GM/dL (10.7-15.3); LYMPH % 30.4 % (8-40); MCH 28.4 pg (25.7-33.7); MCHC 32.6 g/dl (32.0-36.0); MEAN CELL VOLUME 87.1 fl (80-96); MEAN PLT VOLUME 8.1 fl (7.5-11.1); MONO % 5.6 % (3.8-10.2); NEUT % 61.5 % (42.8-82.8); PLATELET COUNT 296 K/MM3 (134-434); RBC 3.63 M/mm3 (3.60-5.2); RDW 16.3 % (11.6-15.6); WHITE BLOOD COUNT 6.2 K/mm3 (4.0-10.0)
[2019-06-08 13:51] LABS: ALBUMIN 2.8 g/dl (3.4-5.0); BILIRUBIN,TOTAL 0.2 mg/dL (0.2-1); BLOOD UREA NITROGEN 11.3 mg/dL (7-18); CALCIUM 8.2 mg/dL (8.5-10.1); CREATININE 0.8 mg/dL (0.55-1.3); POTASSIUM 3.4 mmol/L (3.5-5.1); TOT PROT 7.8 g/dl (6.4-8.2)
--- NOTE | 2019-06-08 13:55 | DS ---
Physical Exam: SUBJECTIVE: Patient seen and examined at the bedside. sitting up, had a good night sleep. No chest pain, no shortness of breath. Had a BM last night, was brown in color, no blood reported. She wants to go home. She understands she has to follow up with a sleep study and for the results of the colonoscopy. Called her son via telephone (Feliberto Farah) and discussed discharge, hospital course and follow ups. Son verbalized understanding. 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 Further, advised him to make an appointment with Dr. Blue for the sleep study. All questions answered. Vital Signs Period Temp Pulse Resp BP Sys/Glez Pulse Ox Last 24 Hr 97.8 F-98.1 F 75-88 20-20 123-147/57-71 98-98 OBJECTIVE: Patient is a 79 year old male with a significant past medical history of hypertension, dyslipidemia, chronic OA (knees), chronic venous stasis, b/l BLE de souza, chronic tobacco usage, meningioma. Patient presents to the ED on 2019 for c/o of bloody BM mixed with clots. Patient had a colonoscopy on 2019 and had episode of hypoxemia that occurred requiring bag mask ventilation. Since that episode, she has been tolerating room air with stable oxygen saturations. She denies any shortness of breath, chest pain. She denies any malaise. She developed an episode of bradycardia with a 3.7 second pause and was evaluated by refining equipment operator who did not recommend any urgent in hospital interventions. Coreq was discontinued and patient had no further pauses on monitor. She has been advised to follow up with cardiology as an outpatient for further testing to rule out proxysmal atrial fibrillation. She will need a sleep study as an outpatient to rule out sleep apnea as her initial screen showed mild to moderate OSAS. No further GI bleed and her hmg/hct are stable. Vital Signs Period Temp Pulse Resp BP Sys/Glez Pulse Ox Last 24 Hr 97.8 F-98.3 F 83-92 20-20 113-157/54-77 97 PHYSICAL EXAM GENERAL: The patient is awake, alert, and fully oriented, in no acute distress. HEAD: Normal with no signs of trauma. EYES: PERRL, extraocular movements intact, sclera anicteric, conjunctiva clear. No ptosis. ENT: Ears normal, nares patent, oropharynx clear without exudates NECK: Trachea midline, full range of motion, supple. LUNGS: Breath sounds equal, clear to auscultation bilaterally, no wheezes HEART: Regular rate and rhythm ABDOMEN: Soft, nontender, nondistended, normoactive bowel sounds EXTREMITIES: lower ext +1 bilateral edema, dry skin NEUROLOGICAL: Normal speech, gait not observed. LABS Laboratory Results - last 24 hr 06/08/19 06/08/19 13:05 13:05 WBC 6.2 RBC 3.63 Hgb 10.3 L Hct 31.6 L MCV 87.1 MCH 28.4 MCHC 32.6 RDW 16.3 H Plt Count 296 MPV 8.1 Absolute Neuts (auto) 3.8 Neutrophils % 61.5 Lymphocytes % 30.4 Monocytes % 5.6 Eosinophils % 1.6 Basophils % 0.9 Nucleated RBC % 0 Sodium 140 Potassium 3.4 L Chloride 105 Carbon Dioxide 29 Anion Gap 6 L BUN 11.3 Creatinine 0.8 Est GFR (CKD-EPI)AfAm 81.27 Est GFR (CKD-EPI)NonAf 70.12 Random Glucose 134 H Calcium 8.2 L Magnesium 2.0 Total Bilirubin 0.2 AST 21 ALT 23 Alkaline Phosphatase 131 H Total Protein 7.8 Albumin 2.8 L HOSPITAL COURSE: Date of Admission:06/01/19 Date of Discharge: 06/08/19 Minutes to complete discharge: 60 Discharge Summary Problems reviewed: Yes Reason For Visit: HEMATOCHEZIA Current Active Problems Bradycardia (Acute) Chronic osteoarthritis (Acute) Chronic venous stasis (Acute) Elevated alkaline phosphatase level (Acute) GI bleeding (Acute) HTN (hypertension) (Acute) Hematochezia (Acute) Hyperlipidemia (Acute) Meningioma (Acute) JESSICA (obstructive sleep apnea) (Acute) Prophylactic measure (Acute) Tobacco abuse (Acute) Tobacco use (Acute) Condition: Improved - Instructions Diet, Activity, Other Instructions: Mrs Farah: You were admitted for a lower GI bleed and will be discharged home today. During your hospital stay you were seen by a GI specialist, refining equipment operator and a transition assistant. Here are our discharge instructions: GI bleed: We did a colonoscopy and biopsies were taken. A source of bleed was not found, but please follow up with the GI specialist for results of the biopsies. Please note that you should not take any Motrin, Aleve, Aspirin or any medication under the class "NSAID". These medications may lead you to bleed. Blood pressure: Please STOP the Carvedilol or Coreq medication. Continue taking the Amlodopine 10mg for blood pressure control. We recommend that you follow up with the refining equipment operator that saw you during your hospital stay for follow up. Dr. Bourne. Sleep Study: You were found to have moderate sleep apnea. You will need to follow up with Dr. Rodriguez, transition assistant. Thank you for allowing us to care for you. It is important that you see your primary care doctor and have your blood work repeated so that your blood counts are stable. We have sent you home with iron pills to take once per day. [facility] [phone] [facility] Referrals: Omero Bourne MD [Staff Physician] - (refining equipment operator) Pal Hannah DO [Staff Physician] - (please follow up for your biopsy) Toney Campbell MD [Primary Care Provider] - Robert Blue MD [Staff Physician] - (call for an appointment for a sleep study) Disposition: HOME - Home Medications Comprehensive Discharge Medication List: Ambulatory Orders Amlodipine Besylate 10 mg PO DAILY 09/11/17 Furosemide 40 mg PO DAILY 12/30/18 Iron,Carbonyl/Ascorbic Acid [Iron 100-Vitamin C Tablet] 1 each PO DAILY #90 tablet 06/08/19 Nicotine Patch [Nicoderm Patch -] 21 mg TD DAILY patch 06/08/19 Pantoprazole Sodium [Protonix -] 40 mg PO BID #30 tablet.ec 06/08/19 Problem List - Problems (1) Bradycardia Assessment/Plan: resolved once coreq was held. will need to follow up with cardiology outpatient. Code(s): R00.1 - BRADYCARDIA, UNSPECIFIED (2) Hematochezia Assessment/Plan: resolved. no further episodes. hmg/hct stable. Code(s): K92.1 - MELENA (3) GI bleeding Assessment/Plan: colonoscopy 06/04/2019: mucosa of the esophagus appeared normal, mucoa of the stomach appeared normal. the duodenal mucosa showed no abnormalities in the duodenal bulb and the 2nd part duodenum. retroflex views in the stomach not done 2/2 to hypoxemia requiring bag mask ventilation. will need follow up outpatient. Code(s): K92.2 - GASTROINTESTINAL HEMORRHAGE, UNSPECIFIED (4) Chronic osteoarthritis Assessment/Plan: tylenol prn Code(s): M19.90 - UNSPECIFIED OSTEOARTHRITIS, UNSPECIFIED SITE (5) Chronic venous stasis Code(s): I87.8 - OTHER SPECIFIED DISORDERS OF VEINS (6) Elevated alkaline phosphatase level Code(s): R74.8 - ABNORMAL LEVELS OF OTHER SERUM ENZYMES (7) HTN (hypertension) Assessment/Plan: stable on norvasc, coreq discontinued. Code(s): I10 - ESSENTIAL (PRIMARY) HYPERTENSION (8) Hyperlipidemia Assessment/Plan: on no home meds Code(s): E78.5 - HYPERLIPIDEMIA, UNSPECIFIED (9) JESSICA (obstructive sleep apnea) Assessment/Plan: for a Sleep screen as outpatient. Code(s): G47.33 - OBSTRUCTIVE SLEEP APNEA (ADULT) (PEDIATRIC) (10) Prophylactic measure Assessment/Plan: no a/c due to gi bleed Code(s): Z29.9 - ENCOUNTER FOR PROPHYLACTIC MEASURES, UNSPECIFIED This patient is new to me today: Yes Date on this admission: 06/08/19 Emergency Visit: No Critical Care patient: No - Discharge Referral Referred to [facility] No
[2019-06-08 15:08] VITALS: BP 134/76; PULSE 91; TEMP 98
== END 2019-06-08 17:19 | disposition home health service (06) | DRG 378 ==
LOC: JER 16:09 → JERBED 23:45 → J4W 06-02 20:16
PROVIDERS: ADMIT Internal Medicine; ATTEND Nurse Practitioner Family
PROC: 0DBN8ZX Excision of Sigmoid Colon, Via Natural or Artificial Opening Endoscopic, Diagnostic (ICD-10-PCS; 2019-06-04)
PROC: 0DJ08ZZ Inspection of Upper Intestinal Tract, Via Natural or Artificial Opening Endoscopic (ICD-10-PCS; principal; 2019-06-04 10:30)
DX: K57.31 Diverticulosis of large intestine without perforation or abscess with bleeding (principal); Z68.42 Body mass index [BMI] 45.0-49.9, adult; E88.09 Other disorders of plasma-protein metabolism, not elsewhere classified; R00.1 Bradycardia, unspecified; R09.02 Hypoxemia; E66.01 Morbid (severe) obesity due to excess calories; I87.2 Venous insufficiency (chronic) (peripheral); K63.5 Polyp of colon; G47.33 Obstructive sleep apnea (adult) (pediatric); R74.8 Abnormal levels of other serum enzymes; D32.9 Benign neoplasm of meninges, unspecified; M17.0 Bilateral primary osteoarthritis of knee; I10 Essential (primary) hypertension; E78.5 Hyperlipidemia, unspecified; F17.210 Nicotine dependence, cigarettes, uncomplicated
CPT/HCPCS: 36415; 36430; 74174-TC; 80048; 80053; 81003; 82272; 82550; 82962; 83735; 84100; 84443; 84484; 85025; 85027; 85610; 86850; 86900; 86901; 86922; 88305-TC; 93005; 93010; 93306-TC; 94640; 99285-25; J0131; P9058

== ENCOUNTER 2020-05-01 09:25 | Inpatient (IN) | payer OTHER ==
[2020-05-01 11:07] LABS: EOS % 0.6 % (0-4.5); HEMATOCRIT 33.7 % (32.4-45.2); HEMOGLOBIN 10.9 GM/dL (10.7-15.3); LYMPH % 18.8 % (8-40); MCH 27.2 pg (25.7-33.7); MCHC 32.3 g/dl (32.0-36.0); MEAN CELL VOLUME 84.3 fl (80-96); MEAN PLT VOLUME 8.3 fl (7.5-11.1); MONO % 4.3 % (3.8-10.2); NEUT % 75.3 % (42.8-82.8); PLATELET COUNT 250 K/MM3 (134-434); RDW 17.8 % (11.6-15.6); WHITE BLOOD COUNT 7.8 K/mm3 (4.0-10.0)
[2020-05-01 11:14] LABS: INR 1.18 (0.83-1.09); PROTHROMBIN TIME (PATIENT) 14.5 SEC (9.7-13.0)
[2020-05-01 11:16] LABS: ACTIVATED PTT 29.2 SECONDS (25.2-36.5)
[2020-05-01 11:31] LABS: CHLORIDE 107 mmol/L (98-107); SODIUM 140 mmol/L (136-145)
[2020-05-01 11:35] LABS: ALBUMIN 2.8 g/dl (3.4-5.0); ANION GAP 5 MMOL/L (8-16); BLOOD UREA NITROGEN 16.3 mg/dL (7-18); CALCIUM 7.8 mg/dL (8.5-10.1); CO2 29 mmol/L (21-32); GLUCOSE,RANDOM 87 mg/dL (74-106)
[2020-05-01 11:38] LABS: BILIRUBIN,DIRECT 0.1 mg/dL (0.0-0.2); CREATININE 0.9 mg/dL (0.55-1.3); SGOT/AST 14 U/L (15-37); SGPT/ALT 14 U/L (13-61)
[2020-05-01 11:40] LABS: BILIRUBIN,TOTAL 0.4 mg/dL (0.2-1); TOT PROT 7.8 g/dl (6.4-8.2)
[2020-05-01 11:41] LABS: ALK PHOS 127 U/L (45-117); LDH 158 U/L (84-246)
[2020-05-01 14:37] LABS: MAGNESIUM 2.2 mg/dL (1.8-2.4)
[2020-05-01] MEDS: SODIUM CHLORIDE 1,000 ML IV SCH (15:14)
[2020-05-01 18:04] LABS: HEMATOCRIT 27.5 % (32.4-45.2); HEMOGLOBIN 9.1 GM/dL (10.7-15.3); MCH 27.3 pg (25.7-33.7); MEAN CELL VOLUME 82.8 fl (80-96); MEAN PLT VOLUME 7.8 fl (7.5-11.1); PLATELET COUNT 231 K/MM3 (134-434); RBC 3.32 M/mm3 (3.60-5.2); RDW 17.8 % (11.6-15.6); WHITE BLOOD COUNT 6.7 K/mm3 (4.0-10.0)
[2020-05-02 03:49] LABS: HEMATOCRIT 27.8 % (32.4-45.2); HEMOGLOBIN 9.2 GM/dL (10.7-15.3); MCH 27.6 pg (25.7-33.7); MEAN CELL VOLUME 83.7 fl (80-96); PLATELET COUNT 238 K/MM3 (134-434); RBC 3.33 M/mm3 (3.60-5.2); RDW 17.6 % (11.6-15.6); WHITE BLOOD COUNT 5.5 K/mm3 (4.0-10.0)
[2020-05-02] MEDS: SODIUM CHLORIDE 1,000 ML IV SCH ×2 (05:38→20:55)
[2020-05-02 09:31] LABS: BASO % 0.3 % (0-2.0); HEMATOCRIT 27.3 % (32.4-45.2); LYMPH % 31.5 % (8-40); MCH 27.5 pg (25.7-33.7); MCHC 32.9 g/dl (32.0-36.0); MEAN CELL VOLUME 83.8 fl (80-96); MEAN PLT VOLUME 8.4 fl (7.5-11.1); MONO % 6.2 % (3.8-10.2); PLATELET COUNT 223 K/MM3 (134-434); RBC 3.25 M/mm3 (3.60-5.2); RDW 17.7 % (11.6-15.6); WHITE BLOOD COUNT 5.4 K/mm3 (4.0-10.0)
[2020-05-02] MEDS: ACETAMINOPHEN 1000 MG/100 ML BAG IVPB PRN ×2 (09:47→20:58)
[2020-05-02] MEDS: amLODIPine BESYLATE 10 MG TABLET (FP) PO SCH (09:47)
[2020-05-02] MEDS: CARVEDILOL 12.5 MG TABLET (FP) PO SCH ×2 (09:47→21:03)
[2020-05-02 10:09] LABS: ALBUMIN 2.5 g/dl (3.4-5.0)
[2020-05-02 10:11] LABS: CALCIUM 7.7 mg/dL (8.5-10.1)
[2020-05-02 10:12] LABS: BLOOD UREA NITROGEN 12.4 mg/dL (7-18); MAGNESIUM 1.9 mg/dL (1.8-2.4)
[2020-05-02 10:15] LABS: CREATININE 0.6 mg/dL (0.55-1.3)
[2020-05-02 10:16] LABS: BILIRUBIN,TOTAL 0.4 mg/dL (0.2-1)
[2020-05-02 10:20] LABS: TOT PROT 6.8 g/dl (6.4-8.2)
[2020-05-02 12:52] LABS: N-TERMINAL BNP 49.7 pg/ml (5-450)
[2020-05-02 17:19] LABS: BASO % 0.4 % (0-2.0); EOS % 1.5 % (0-4.5); HEMATOCRIT 27.7 % (32.4-45.2); LYMPH % 33.6 % (8-40); MCH 27.3 pg (25.7-33.7); MCHC 32.4 g/dl (32.0-36.0); MEAN CELL VOLUME 84.4 fl (80-96); MEAN PLT VOLUME 8.4 fl (7.5-11.1); MONO % 5.3 % (3.8-10.2); NEUT % 59.2 % (42.8-82.8); PLATELET COUNT 228 K/MM3 (134-434); RBC 3.28 M/mm3 (3.60-5.2); RDW 18.1 % (11.6-15.6); WHITE BLOOD COUNT 5.7 K/mm3 (4.0-10.0)
[2020-05-03 09:04] LABS: BASO % 0.9 % (0-2.0); EOS % 2.1 % (0-4.5); HEMATOCRIT 27.4 % (32.4-45.2); HEMOGLOBIN 8.8 GM/dL (10.7-15.3); LYMPH % 34.8 % (8-40); MCH 27.5 pg (25.7-33.7); MCHC 32.3 g/dl (32.0-36.0); MEAN CELL VOLUME 84.9 fl (80-96); MEAN PLT VOLUME 8.9 fl (7.5-11.1); MONO % 5.6 % (3.8-10.2); NEUT % 56.6 % (42.8-82.8); PLATELET COUNT 234 K/MM3 (134-434); RBC 3.22 M/mm3 (3.60-5.2); RDW 17.6 % (11.6-15.6); WHITE BLOOD COUNT 4.9 K/mm3 (4.0-10.0)
[2020-05-03] MEDS: amLODIPine BESYLATE 10 MG TABLET (FP) PO SCH (09:35)
[2020-05-03] MEDS: CARVEDILOL 12.5 MG TABLET (FP) PO SCH ×2 (09:35→21:09)
[2020-05-03 09:42] LABS: CALCIUM 7.9 mg/dL (8.5-10.1)
[2020-05-03 09:43] LABS: ALBUMIN 2.7 g/dl (3.4-5.0); BLOOD UREA NITROGEN 9.3 mg/dL (7-18)
[2020-05-03 09:46] LABS: CREATININE 0.7 mg/dL (0.55-1.3)
[2020-05-03 09:47] LABS: BILIRUBIN,TOTAL 0.3 mg/dL (0.2-1); TOT PROT 7.2 g/dl (6.4-8.2)
[2020-05-03] MEDS: ACETAMINOPHEN 1000 MG/100 ML BAG IVPB PRN ×2 (14:16→22:21)
[2020-05-03 17:12] LABS: BASO % 0.4 % (0-2.0); EOS % 2.3 % (0-4.5); HEMATOCRIT 26.5 % (32.4-45.2); HEMOGLOBIN 8.6 GM/dL (10.7-15.3); LYMPH % 32.5 % (8-40); MCH 27.5 pg (25.7-33.7); MCHC 32.5 g/dl (32.0-36.0); MEAN CELL VOLUME 84.4 fl (80-96); MEAN PLT VOLUME 8.8 fl (7.5-11.1); NEUT % 58.8 % (42.8-82.8); PLATELET COUNT 236 K/MM3 (134-434); RBC 3.14 M/mm3 (3.60-5.2); RDW 17.7 % (11.6-15.6); WHITE BLOOD COUNT 6.4 K/mm3 (4.0-10.0)
[2020-05-03] MEDS ORDERED: POTASSIUM CHLORIDE TABS 20 MEQ TABLET.ER (FP) PO ONE (17:25)
[2020-05-04 07:58] LABS: BASO % 0.4 % (0-2.0); EOS % 2.5 % (0-4.5); HEMATOCRIT 24.6 % (32.4-45.2); HEMOGLOBIN 8.1 GM/dL (10.7-15.3); MCH 27.6 pg (25.7-33.7); MEAN CELL VOLUME 83.7 fl (80-96); MEAN PLT VOLUME 8.6 fl (7.5-11.1); MONO % 7.6 % (3.8-10.2); NEUT % 51.5 % (42.8-82.8); PLATELET COUNT 230 K/MM3 (134-434); RBC 2.94 M/mm3 (3.60-5.2); RDW 17.5 % (11.6-15.6); WHITE BLOOD COUNT 4.5 K/mm3 (4.0-10.0)
[2020-05-04 08:15] LABS: ALBUMIN 2.4 g/dl (3.4-5.0); CALCIUM 7.5 mg/dL (8.5-10.1)
[2020-05-04 08:16] LABS: BLOOD UREA NITROGEN 7.2 mg/dL (7-18); MAGNESIUM 1.9 mg/dL (1.8-2.4)
[2020-05-04 08:18] LABS: CREATININE 0.6 mg/dL (0.55-1.3)
[2020-05-04 08:19] LABS: BILIRUBIN,TOTAL 0.4 mg/dL (0.2-1); TOT PROT 6.7 g/dl (6.4-8.2)
[2020-05-04] MEDS: CARVEDILOL 12.5 MG TABLET (FP) PO SCH ×2 (09:19→21:18)
[2020-05-04] MEDS: amLODIPine BESYLATE 10 MG TABLET (FP) PO SCH (09:19)
[2020-05-04] MEDS: ACETAMINOPHEN 1000 MG/100 ML BAG IVPB PRN (10:34)
[2020-05-04] MEDS ORDERED: ACETAMINOPHEN 325 MG TABLET (FP) PO ONE (18:59)
[2020-05-05 09:27] LABS: EOS % 1.9 % (0-4.5); HEMATOCRIT 26.3 % (32.4-45.2); HEMOGLOBIN 8.7 GM/dL (10.7-15.3); LYMPH % 35.1 % (8-40); MCH 27.8 pg (25.7-33.7); MEAN CELL VOLUME 84.5 fl (80-96); MEAN PLT VOLUME 8.7 fl (7.5-11.1); MONO % 5.6 % (3.8-10.2); NEUT % 56.4 % (42.8-82.8); PLATELET COUNT 261 K/MM3 (134-434); RBC 3.11 M/mm3 (3.60-5.2); RDW 17.8 % (11.6-15.6); WHITE BLOOD COUNT 4.9 K/mm3 (4.0-10.0)
[2020-05-05 10:01] LABS: ALBUMIN 2.7 g/dl (3.4-5.0)
[2020-05-05 10:03] LABS: BLOOD UREA NITROGEN 4.7 mg/dL (7-18)
[2020-05-05 10:05] LABS: CREATININE 0.6 mg/dL (0.55-1.3)
[2020-05-05 10:06] LABS: BILIRUBIN,TOTAL 0.5 mg/dL (0.2-1); TOT PROT 7.4 g/dl (6.4-8.2)
[2020-05-05] MEDS: amLODIPine BESYLATE 10 MG TABLET (FP) PO SCH (10:50)
[2020-05-05] MEDS: CARVEDILOL 12.5 MG TABLET (FP) PO SCH ×2 (10:50→21:56)
[2020-05-05 15:19] LABS: ARTERIAL BLD GAS O2 SATURATION 96.1 mmHg (95-98); ARTERIAL BLOOD GAS BASE EXCESS 0.8 mmol/L (-2-2); ARTERIAL BLOOD GAS PO2 79.9 mmHg (80-100); ARTERIAL BLOOD GAS pH 7.429 (7.350-7.450)
[2020-05-05 15:20] LABS: ALLENS TEST POSITIVE
[2020-05-05] MEDS: DEXTROSE 5%-0.45% SALINE 1,000 ML IV SCH (21:56)
[2020-05-05 23:02] LABS: BASO % 0.5 % (0-2.0); EOS % 1.7 % (0-4.5); HEMATOCRIT 23.9 % (32.4-45.2); HEMOGLOBIN 7.7 GM/dL (10.7-15.3); LYMPH % 35.1 % (8-40); MCH 27.4 pg (25.7-33.7); MCHC 32.4 g/dl (32.0-36.0); MEAN CELL VOLUME 84.5 fl (80-96); MEAN PLT VOLUME 7.8 fl (7.5-11.1); NEUT % 56.7 % (42.8-82.8); PLATELET COUNT 267 K/MM3 (134-434); RBC 2.82 M/mm3 (3.60-5.2); RDW 17.8 % (11.6-15.6); WHITE BLOOD COUNT 6.1 K/mm3 (4.0-10.0)
[2020-05-06] MEDS: ACETAMINOPHEN 325 MG TABLET (FP) PO PRN (00:36)
[2020-05-06 06:47] LABS: BASO % 0.7 % (0-2.0); EOS % 1.7 % (0-4.5); HEMATOCRIT 23.3 % (32.4-45.2); HEMOGLOBIN 7.7 GM/dL (10.7-15.3); LYMPH % 33.3 % (8-40); MCH 28.2 pg (25.7-33.7); MEAN CELL VOLUME 85.4 fl (80-96); MEAN PLT VOLUME 8.1 fl (7.5-11.1); MONO % 8.2 % (3.8-10.2); NEUT % 56.1 % (42.8-82.8); PLATELET COUNT 233 K/MM3 (134-434); RBC 2.73 M/mm3 (3.60-5.2); RDW 17.2 % (11.6-15.6); WHITE BLOOD COUNT 6.6 K/mm3 (4.0-10.0)
[2020-05-06 07:10] LABS: ALBUMIN 2.2 g/dl (3.4-5.0); BLOOD UREA NITROGEN 10.6 mg/dL (7-18); CALCIUM 7.5 mg/dL (8.5-10.1)
[2020-05-06 07:13] LABS: CREATININE 0.8 mg/dL (0.55-1.3)
[2020-05-06 07:15] LABS: BILIRUBIN,TOTAL 0.6 mg/dL (0.2-1); TOT PROT 6.1 g/dl (6.4-8.2)
[2020-05-06] MEDS: CARVEDILOL 12.5 MG TABLET (FP) PO SCH (09:02)
[2020-05-06] MEDS: amLODIPine BESYLATE 10 MG TABLET (FP) PO SCH (09:02)
[2020-05-06] MEDS ORDERED: PEG 3350/NA SULF BICARB CL/KCL 4000 ML SOLN.RECON PO ONE (16:10)
[2020-05-06 21:01] LABS: BASO % 0.7 % (0-2.0); EOS % 1.6 % (0-4.5); HEMATOCRIT 26.9 % (32.4-45.2); HEMOGLOBIN 8.8 GM/dL (10.7-15.3); LYMPH % 35.7 % (8-40); MCHC 32.8 g/dl (32.0-36.0); MEAN CELL VOLUME 85.3 fl (80-96); PLATELET COUNT 257 K/MM3 (134-434); RBC 3.15 M/mm3 (3.60-5.2); RDW 16.9 % (11.6-15.6); WHITE BLOOD COUNT 6.5 K/mm3 (4.0-10.0)
[2020-05-07 07:18] LABS: BASO % 0.6 % (0-2.0); EOS % 2.5 % (0-4.5); HEMATOCRIT 25.4 % (32.4-45.2); HEMOGLOBIN 8.5 GM/dL (10.7-15.3); MCH 28.5 pg (25.7-33.7); MCHC 33.5 g/dl (32.0-36.0); MEAN CELL VOLUME 85.1 fl (80-96); MEAN PLT VOLUME 8.3 fl (7.5-11.1); MONO % 6.5 % (3.8-10.2); NEUT % 56.4 % (42.8-82.8); PLATELET COUNT 237 K/MM3 (134-434); RBC 2.98 M/mm3 (3.60-5.2); RDW 16.7 % (11.6-15.6); WHITE BLOOD COUNT 6.1 K/mm3 (4.0-10.0)
[2020-05-07 07:20] LABS: INR 1.17 (0.83-1.09); PROTHROMBIN TIME (PATIENT) 14.1 SEC (9.7-13.0)
[2020-05-07 07:22] LABS: ACTIVATED PTT 32.5 SECONDS (25.2-36.5)
[2020-05-07] MEDS: DEXTROSE 5%-0.45% SALINE 1,000 ML IV SCH ×2 (07:22→10:30)
[2020-05-07 07:37] LABS: ALBUMIN 2.4 g/dl (3.4-5.0); BLOOD UREA NITROGEN 6.4 mg/dL (7-18); CALCIUM 7.5 mg/dL (8.5-10.1)
[2020-05-07 07:38] LABS: MAGNESIUM 1.9 mg/dL (1.8-2.4)
[2020-05-07 07:40] LABS: CREATININE 0.6 mg/dL (0.55-1.3)
[2020-05-07 07:42] LABS: BILIRUBIN,TOTAL 0.7 mg/dL (0.2-1); TOT PROT 6.4 g/dl (6.4-8.2)
[2020-05-07] MEDS ORDERED: SODIUM CHLORIDE 1,000 ML IV STA (09:20)
[2020-05-07] MEDS: amLODIPine BESYLATE 10 MG TABLET (FP) PO SCH (09:46)
[2020-05-07 10:09] LABS: BASO % 0.6 % (0-2.0); EOS % 1.4 % (0-4.5); LYMPH % 27.8 % (8-40); MCH 28.2 pg (25.7-33.7); MCHC 32.3 g/dl (32.0-36.0); MEAN CELL VOLUME 87.3 fl (80-96); MEAN PLT VOLUME 8.1 fl (7.5-11.1); MONO % 5.7 % (3.8-10.2); NEUT % 64.5 % (42.8-82.8); PLATELET COUNT 201 K/MM3 (134-434); RBC 2.18 M/mm3 (3.60-5.2); RDW 16.9 % (11.6-15.6); WHITE BLOOD COUNT 6.5 K/mm3 (4.0-10.0)
[2020-05-07 10:16] LABS: INR 1.31 (0.83-1.09)
[2020-05-07 10:18] LABS: HEMOGLOBIN 6.1 GM/dL (10.7-15.3)
[2020-05-07 10:19] LABS: ACTIVATED PTT 28.8 SECONDS (25.2-36.5)
[2020-05-07 10:29] LABS: ALBUMIN 1.8 g/dl (3.4-5.0); BLOOD UREA NITROGEN 7.6 mg/dL (7-18); MAGNESIUM 1.7 mg/dL (1.8-2.4)
[2020-05-07 10:32] LABS: CREATININE 0.8 mg/dL (0.55-1.3)
[2020-05-07 10:33] LABS: BILIRUBIN,TOTAL 0.3 mg/dL (0.2-1); TOT PROT 4.7 g/dl (6.4-8.2)
[2020-05-07 11:25] LABS: CALCIUM 6.9 mg/dL (8.5-10.1)
[2020-05-07] MEDS ORDERED: PANTOPRAZOLE SODIUM 40 MG VIAL IVPUSH SCH ×2 (12:00→12:15)
[2020-05-07] MEDS: PANTOPRAZOLE SODIUM 80 MG in SODIUM CHLORIDE 100 ML IVPB SCH ×2 (14:55→23:58)
[2020-05-07] MEDS: KCL 10 MEQ IVPB 10 MEQ/100 ML INFUS.BAG IVPB SCH ×4 (15:54→22:18)
[2020-05-07 20:41] LABS: HEMATOCRIT 20.1 % (32.4-45.2); MCH 28.4 pg (25.7-33.7); MCHC 33.6 g/dl (32.0-36.0); MEAN CELL VOLUME 84.4 fl (80-96); MEAN PLT VOLUME 8.1 fl (7.5-11.1); PLATELET COUNT 198 K/MM3 (134-434); RBC 2.38 M/mm3 (3.60-5.2); RDW 16.5 % (11.6-15.6); WHITE BLOOD COUNT 8.9 K/mm3 (4.0-10.0)
[2020-05-07 21:03] LABS: HEMOGLOBIN 6.8 GM/dL (10.7-15.3)
[2020-05-07] MEDS ORDERED: MAGNESIUM SULF 50% (8.12 MEQ/2 ML-1 GM VIAL) IVPB ONE (21:24)
[2020-05-07] MEDS ORDERED: CALCIUM GLUCONATE 10% - 1,000 MG/10 ML VIAL IVPB ONE (21:25)
[2020-05-08] MEDS: KCL 10 MEQ IVPB 10 MEQ/100 ML INFUS.BAG IVPB SCH (01:19)
[2020-05-08] MEDS: DEXTROSE 5%-0.45% SALINE 1,000 ML IV SCH ×2 (01:23→22:07)
[2020-05-08] MEDS: PANTOPRAZOLE SODIUM 80 MG in SODIUM CHLORIDE 100 ML IVPB SCH ×2 (04:09→08:30)
[2020-05-08 07:13] LABS: BASO % 0.7 % (0-2.0); EOS % 2.4 % (0-4.5); HEMATOCRIT 21.8 % (32.4-45.2); HEMOGLOBIN 7.5 GM/dL (10.7-15.3); LYMPH % 25.9 % (8-40); MCH 29.2 pg (25.7-33.7); MCHC 34.5 g/dl (32.0-36.0); MEAN CELL VOLUME 84.6 fl (80-96); MEAN PLT VOLUME 8.1 fl (7.5-11.1); MONO % 5.6 % (3.8-10.2); NEUT % 65.4 % (42.8-82.8); PLATELET COUNT 202 K/MM3 (134-434); RBC 2.57 M/mm3 (3.60-5.2); RDW 16.3 % (11.6-15.6); WHITE BLOOD COUNT 8.8 K/mm3 (4.0-10.0)
[2020-05-08 07:31] LABS: BLOOD UREA NITROGEN 8.5 mg/dL (7-18); MAGNESIUM 2.1 mg/dL (1.8-2.4)
[2020-05-08 07:35] LABS: BILIRUBIN,TOTAL 0.4 mg/dL (0.2-1); CREATININE 0.6 mg/dL (0.55-1.3); TOT PROT 5.2 g/dl (6.4-8.2)
[2020-05-08 07:40] LABS: CALCIUM 6.9 mg/dL (8.5-10.1)
[2020-05-08] MEDS ORDERED: PANTOPRAZOLE SODIUM 40 MG VIAL IVPUSH SCH (10:00)
[2020-05-08] MEDS ORDERED: PANTOPRAZOLE 40 MG TABLET PO SCH (10:00)
[2020-05-08] MEDS: amLODIPine BESYLATE 10 MG TABLET (FP) PO SCH (11:05)
[2020-05-08 12:08] VITALS: BMI 37.5
[2020-05-08] MEDS ORDERED: KETAMINE HCL 500 MG/10 ML VIAL ONE (14:26)
[2020-05-08] MEDS ORDERED: MIDAZOLAM HCL 2 MG/2 ML SINGLE DOSE VIAL ONE (14:26)
[2020-05-08] MEDS ORDERED: PEG 3350/NA SULF BICARB CL/KCL 4000 ML SOLN.RECON PO ONE (16:57)
[2020-05-08] MEDS ORDERED: CALCIUM GLUCONATE 10% - 1,000 MG/10 ML VIAL IVPB ONE (21:09)
[2020-05-09 07:59] LABS: BASO % 0.6 % (0-2.0); EOS % 3.4 % (0-4.5); HEMATOCRIT 23.9 % (32.4-45.2); HEMOGLOBIN 7.9 GM/dL (10.7-15.3); LYMPH % 25.5 % (8-40); MCH 28.1 pg (25.7-33.7); MCHC 32.9 g/dl (32.0-36.0); MEAN CELL VOLUME 85.5 fl (80-96); MEAN PLT VOLUME 8.4 fl (7.5-11.1); MONO % 5.7 % (3.8-10.2); NEUT % 64.8 % (42.8-82.8); PLATELET COUNT 216 K/MM3 (134-434); RDW 17.5 % (11.6-15.6); WHITE BLOOD COUNT 7.4 K/mm3 (4.0-10.0)
[2020-05-09 08:18] LABS: ALBUMIN 2.1 g/dl (3.4-5.0); BLOOD UREA NITROGEN 5.3 mg/dL (7-18); CALCIUM 7.4 mg/dL (8.5-10.1); MAGNESIUM 1.9 mg/dL (1.8-2.4)
[2020-05-09 08:21] LABS: CREATININE 0.5 mg/dL (0.55-1.3); PHOSPHOROUS 3.5 mg/dL (2.5-4.9)
[2020-05-09 08:22] LABS: BILIRUBIN,TOTAL 0.4 mg/dL (0.2-1); TOT PROT 5.6 g/dl (6.4-8.2)
[2020-05-09] MEDS: amLODIPine BESYLATE 10 MG TABLET (FP) PO SCH (10:49)
[2020-05-09 17:09] LABS: BASO % 1.3 % (0-2.0); HEMATOCRIT 27.7 % (32.4-45.2); HEMOGLOBIN 9.2 GM/dL (10.7-15.3); MCH 28.3 pg (25.7-33.7); MCHC 33.2 g/dl (32.0-36.0); MEAN CELL VOLUME 85.4 fl (80-96); MEAN PLT VOLUME 8.5 fl (7.5-11.1); MONO % 7.3 % (3.8-10.2); NEUT % 64.4 % (42.8-82.8); PLATELET COUNT 212 K/MM3 (134-434); RBC 3.24 M/mm3 (3.60-5.2); RDW 17.3 % (11.6-15.6); WHITE BLOOD COUNT 8.1 K/mm3 (4.0-10.0)
[2020-05-10] MEDS: DEXTROSE 5%-0.45% SALINE 1,000 ML IV SCH (07:02)
[2020-05-10 07:10] LABS: PHOSPHOROUS 3.4 mg/dL (2.5-4.9)
[2020-05-10] MEDS: amLODIPine BESYLATE 10 MG TABLET (FP) PO SCH (10:21)
[2020-05-10 10:36] LABS: BASO % 1.1 % (0-2.0); EOS % 2.8 % (0-4.5); HEMOGLOBIN 8.9 GM/dL (10.7-15.3); LYMPH % 21.1 % (8-40); MCH 29.3 pg (25.7-33.7); MCHC 34.4 g/dl (32.0-36.0); MEAN CELL VOLUME 85.2 fl (80-96); MEAN PLT VOLUME 8.1 fl (7.5-11.1); MONO % 5.6 % (3.8-10.2); NEUT % 69.4 % (42.8-82.8); PLATELET COUNT 232 K/MM3 (134-434); RBC 3.05 M/mm3 (3.60-5.2); RDW 16.9 % (11.6-15.6); WHITE BLOOD COUNT 7.6 K/mm3 (4.0-10.0)
[2020-05-10 10:54] LABS: ALBUMIN 2.2 g/dl (3.4-5.0); BLOOD UREA NITROGEN 5.5 mg/dL (7-18); CALCIUM 7.4 mg/dL (8.5-10.1); MAGNESIUM 1.8 mg/dL (1.8-2.4)
[2020-05-10 10:58] LABS: CREATININE 0.6 mg/dL (0.55-1.3)
[2020-05-10 10:59] LABS: BILIRUBIN,TOTAL 0.3 mg/dL (0.2-1); TOT PROT 5.7 g/dl (6.4-8.2)
[2020-05-10] MEDS: ACETAMINOPHEN 325 MG TABLET (FP) PO PRN (19:48)
[2020-05-11 09:27] LABS: BASO % 0.4 % (0-2.0); EOS % 1.7 % (0-4.5); HEMATOCRIT 25.3 % (32.4-45.2); HEMOGLOBIN 8.3 GM/dL (10.7-15.3); LYMPH % 23.9 % (8-40); MCH 28.6 pg (25.7-33.7); MCHC 32.9 g/dl (32.0-36.0); MONO % 5.4 % (3.8-10.2); NEUT % 68.6 % (42.8-82.8); PLATELET COUNT 250 K/MM3 (134-434); RBC 2.91 M/mm3 (3.60-5.2); WHITE BLOOD COUNT 6.2 K/mm3 (4.0-10.0)
[2020-05-11 09:32] LABS: CALCIUM 7.5 mg/dL (8.5-10.1)
[2020-05-11 09:33] LABS: ALBUMIN 2.1 g/dl (3.4-5.0); BLOOD UREA NITROGEN 6.4 mg/dL (7-18); MAGNESIUM 1.8 mg/dL (1.8-2.4)
[2020-05-11 09:36] LABS: CREATININE 0.5 mg/dL (0.55-1.3)
[2020-05-11 09:38] LABS: BILIRUBIN,TOTAL 0.9 mg/dL (0.2-1); TOT PROT 5.9 g/dl (6.4-8.2)
[2020-05-11] MEDS: CARVEDILOL 12.5 MG TABLET (FP) PO SCH ×2 (10:11→21:50)
[2020-05-11] MEDS: amLODIPine BESYLATE 10 MG TABLET (FP) PO SCH (10:11)
[2020-05-11] MEDS: DEXTROSE 5%-0.45% SALINE 1,000 ML IV SCH (10:11)
[2020-05-11] MEDS: PANTOPRAZOLE 40 MG TABLET PO SCH (14:10)
[2020-05-11] MEDS: ACETAMINOPHEN 325 MG TABLET (FP) PO PRN (17:39)
[2020-05-12] MEDS: CARVEDILOL 12.5 MG TABLET (FP) PO SCH (09:37)
[2020-05-12] MEDS: amLODIPine BESYLATE 10 MG TABLET (FP) PO SCH (09:37)
[2020-05-12] MEDS: PANTOPRAZOLE 40 MG TABLET PO SCH (09:37)
[2020-05-12] MEDS: ACETAMINOPHEN 325 MG TABLET (FP) PO PRN (11:10)
[2020-05-12 13:26] LABS: BASO % 0.9 % (0-2.0); EOS % 1.9 % (0-4.5); HEMATOCRIT 26.2 % (32.4-45.2); HEMOGLOBIN 8.5 GM/dL (10.7-15.3); LYMPH % 25.1 % (8-40); MCH 28.2 pg (25.7-33.7); MCHC 32.3 g/dl (32.0-36.0); MEAN CELL VOLUME 87.3 fl (80-96); MONO % 6.1 % (3.8-10.2); PLATELET COUNT 276 K/MM3 (134-434); RBC 3.01 M/mm3 (3.60-5.2); RDW 17.1 % (11.6-15.6); WHITE BLOOD COUNT 6.3 K/mm3 (4.0-10.0)
[2020-05-12 13:45] LABS: CALCIUM 7.3 mg/dL (8.5-10.1)
[2020-05-12 13:46] LABS: ALBUMIN 2.2 g/dl (3.4-5.0); BLOOD UREA NITROGEN 9.8 mg/dL (7-18); MAGNESIUM 1.9 mg/dL (1.8-2.4)
[2020-05-12 13:49] LABS: CREATININE 0.5 mg/dL (0.55-1.3)
[2020-05-12 13:50] LABS: BILIRUBIN,TOTAL 0.2 mg/dL (0.2-1)
[2020-05-12 13:51] LABS: TOT PROT 6.2 g/dl (6.4-8.2)
[2020-05-12 15:58] VITALS: BP 119/63; PULSE 68; TEMP 98.3
== END 2020-05-12 16:44 | disposition home or self-care (01) | DRG 378 ==
LOC: JER 09:25 → JERBED 11:19 → J4S 05-02 03:21 → JICU 05-07 10:12 → J8W 05-11 04:30
PROVIDERS: ADMIT Internal Medicine; ATTEND Nurse Practitioner Family
PROC: 30233N1 Transfusion of Nonautologous Red Blood Cells into Peripheral Vein, Percutaneous Approach (ICD-10-PCS; 2020-05-06)
PROC: 0DJD8ZZ Inspection of Lower Intestinal Tract, Via Natural or Artificial Opening Endoscopic (ICD-10-PCS; principal; 2020-05-08)
PROC: 0DJ08ZZ Inspection of Upper Intestinal Tract, Via Natural or Artificial Opening Endoscopic (ICD-10-PCS; 2020-05-09)
DX: K57.31 Diverticulosis of large intestine without perforation or abscess with bleeding (principal); D62 Acute posthemorrhagic anemia; I10 Essential (primary) hypertension; K92.1 Melena; E66.9 Obesity, unspecified; Z68.36 Body mass index [BMI] 36.0-36.9, adult; E78.5 Hyperlipidemia, unspecified; M17.0 Bilateral primary osteoarthritis of knee; D32.9 Benign neoplasm of meninges, unspecified; R55 Syncope and collapse; J44.9 Chronic obstructive pulmonary disease, unspecified; R09.02 Hypoxemia; M06.9 Rheumatoid arthritis, unspecified; D64.9 Anemia, unspecified; E87.6 Hypokalemia; E83.51 Hypocalcemia; K22.2 Esophageal obstruction; G47.33 Obstructive sleep apnea (adult) (pediatric); I87.8 Other specified disorders of veins; K64.8 Other hemorrhoids
CPT/HCPCS: 36415; 36430; 36600; 71045-TC-FY; 71250-TC; 74174-TC; 80053; 82248; 82272; 82550; 82728; 82803; 83615; 83735; 83880; 84100; 84484; 85025; 85027; 85610; 85730; 86140; 86850; 86900; 86901; 86922; 93005; 93010; 93306-TC; 94660; 97116-GP; 97161-GP; 99285-25; C9803; J0131; P9058; Q9967; U0003

== ENCOUNTER 2022-07-21 11:02 | Inpatient (IN) | payer OTHER ==
[2022-07-21] MEDS ORDERED: ASPIRIN 81 MG CHEWABLE TABLETS PO ONE (11:37)
[2022-07-21] MEDS ORDERED: ASPIRIN 81 MG CHEWABLE TABLETS ONE (12:00)
[2022-07-21] MEDS ORDERED: FUROSEMIDE 40 MG/4 ML INJECTABLE VIAL IVPUSH ONE (12:19)
[2022-07-21 12:29] LABS: VENOUS BASE EXCESS 2.9 mmol/L (-2-2); VENOUS O2 SATURATION 85.4 % (70-80); VENOUS PCO2 65.6 mmHg (38-52); VENOUS PH 7.295 (7.310-7.410)
[2022-07-21] MEDS ORDERED: FUROSEMIDE 40 MG/4 ML INJECTABLE VIAL ONE (12:32)
[2022-07-21 12:41] LABS: INR 1.27 (0.83-1.09); PROTHROMBIN TIME (PATIENT) 14.7 SEC (9.7-13.0)
[2022-07-21 12:44] LABS: ACTIVATED PTT 37.9 SECONDS (25.2-36.5)
[2022-07-21 12:55] LABS: BASO % 0.4 % (0-2.0); EOS % 2.2 % (0-4.5); HEMATOCRIT 35.3 % (32.4-45.2); LYMPH % 8.8 % (8-40); MCH 27.2 pg (25.7-33.7); MCHC 33.9 g/dl (32.0-36.0); MEAN CELL VOLUME 80.3 fl (80-96); MEAN PLT VOLUME 8.2 fl (7.5-11.1); MONO % 6.1 % (3.8-10.2); NEUT % 82.5 % (42.8-82.8); PLATELET COUNT 246 10^3/uL (134-434); WHITE BLOOD COUNT 7.8 K/mm3 (4.0-10.0)
[2022-07-21 13:00] LABS: ALBUMIN 2.9 g/dl (3.4-5.0); BLOOD UREA NITROGEN 10.3 mg/dL (7-18); CALCIUM 8.1 mg/dL (8.5-10.1); MAGNESIUM 2.1 mg/dL (1.8-2.4)
[2022-07-21 13:03] LABS: CREATININE 0.7 mg/dL (0.55-1.3)
[2022-07-21 13:04] LABS: BILIRUBIN,TOTAL 0.4 mg/dL (0.2-1)
[2022-07-21 13:08] LABS: N-TERMINAL BNP 143.3 pg/ml (5-450)
[2022-07-21] MEDS ORDERED: CEFTRIAXONE 1 GM in DEXTROSE 5%-WATER - 100 ML IVPB ONE (13:31)
[2022-07-21] MEDS ORDERED: AZITHROMYCIN IVPB 500 MG in DEXTROSE 5%-WATER - 250 ML IVPB ONE (13:31)
[2022-07-21] MEDS ORDERED: AZITHROMYCIN IVPB 500 MG/250 ML BAG IVPB ONE (14:19)
[2022-07-21] MEDS ORDERED: CEFTRIAXONE 1 GM/50 ML BAG ONE (14:19)
[2022-07-21] MEDS ORDERED: ACETAMINOPHEN 500 MG TABLET (FP) PO ONE (15:05)
[2022-07-21] MEDS ORDERED: ACETAMINOPHEN 325 MG TABLET (FP) ONE (15:59)
[2022-07-21 17:12] LABS: URINE APPEARANCE CLEAR; URINE BILIRUBIN NEGATIVE (NEGATIVE); URINE COLOR YELLOW; URINE GLUCOSE (UA) NEGATIVE (NEGATIVE); URINE KETONE NEGATIVE (NEGATIVE); URINE LEUK ESTERASE NEGATIVE (NEGATIVE); URINE NITRITE NEGATIVE (NEGATIVE); URINE PROTEIN NEGATIVE (NEGATIVE); URINE UROBILINOGEN 0.2 mg/dL (0.2-1.0)
[2022-07-21] MEDS ORDERED: PANTOPRAZOLE 40 MG TABLET PO ONE (19:01)
[2022-07-21] MEDS ORDERED: methylPREDNISolone NA SUCC 40 MG/1 ML VIAL ONE (19:02)
[2022-07-21] MEDS ORDERED: amLODIPine BESYLATE 10 MG TABLET (FP) ONE (19:02)
[2022-07-21] MEDS: PANTOPRAZOLE 40 MG TABLET PO SCH (19:05)
[2022-07-21] MEDS: methylPREDNISolone NA SUCC 40 MG/1 ML VIAL IVPUSH SCH (19:05)
[2022-07-21] MEDS: amLODIPine BESYLATE 10 MG TABLET (FP) PO SCH (19:05)
[2022-07-21] MEDS ORDERED: ALBUTEROL SO4 2.5/IPRATROPIUM 0.5 INH SOL 3 ML VIAL.NEB. NEB ONE (20:22)
[2022-07-21] MEDS: ALBUTEROL SO4 2.5/IPRATROPIUM 0.5 INH SOL 3 ML VIAL.NEB. NEB SCH ×2 (20:25→23:06)
[2022-07-21] MEDS: INSULIN SLIDING SCALE (NOVOLOG) 1 VIAL SQ SCH (21:33)
[2022-07-22 00:12] VITALS: BMI 36.3
[2022-07-22] MEDS: methylPREDNISolone NA SUCC 40 MG/1 ML VIAL IVPUSH SCH ×3 (01:23→17:00)
[2022-07-22] MEDS: ALBUTEROL SO4 2.5/IPRATROPIUM 0.5 INH SOL 3 ML VIAL.NEB. NEB SCH ×6 (04:30→22:00)
[2022-07-22] MEDS: INSULIN SLIDING SCALE (NOVOLOG) 1 VIAL SQ SCH ×4 (06:22→22:13)
[2022-07-22 08:12] LABS: BASO % 0.1 % (0-2.0); HEMOGLOBIN 11.9 GM/dL (10.7-15.3); MCH 27.2 pg (25.7-33.7); MEAN PLT VOLUME 7.9 fl (7.5-11.1); MONO % 0.6 % (3.8-10.2); NEUT % 89.3 % (42.8-82.8); PLATELET COUNT 244 10^3/uL (134-434); RBC 4.37 M/mm3 (3.60-5.2); RDW 17.5 % (11.6-15.6); WHITE BLOOD COUNT 4.1 K/mm3 (4.0-10.0)
[2022-07-22 08:37] LABS: ALBUMIN 2.7 g/dl (3.4-5.0); PHOSPHOROUS 5.2 mg/dL (2.5-4.9)
[2022-07-22 08:38] LABS: CALCIUM 8.5 mg/dL (8.5-10.1); TOT PROT 8.7 g/dl (6.4-8.2)
[2022-07-22 08:39] LABS: BILIRUBIN,TOTAL 0.3 mg/dL (0.2-1)
[2022-07-22 08:40] LABS: CREATININE 0.7 mg/dL (0.55-1.3)
[2022-07-22 08:42] LABS: MAGNESIUM 2.2 mg/dL (1.8-2.4)
[2022-07-22 08:48] LABS: BLOOD UREA NITROGEN 14.7 mg/dL (7-18)
[2022-07-22] MEDS: ENOXAPARIN NA (PORCINE) 40 MG/0.4 ML DISP.SYRIN SQ SCH (09:45)
[2022-07-22] MEDS: PANTOPRAZOLE 40 MG TABLET PO SCH (09:45)
[2022-07-22] MEDS: amLODIPine BESYLATE 10 MG TABLET (FP) PO SCH (09:45)
[2022-07-22] MEDS ORDERED: FUROSEMIDE 40 MG TABLET (FP) PO SCH ×2 (10:00→14:00)
[2022-07-22] MEDS: CARVEDILOL 12.5 MG TABLET (FP) PO SCH ×2 (11:01→22:08)
[2022-07-22] MEDS ORDERED: FUROSEMIDE 40 MG/4 ML INJECTABLE VIAL IVPUSH ONE (12:19)
[2022-07-22] MEDS: FUROSEMIDE 40 MG/4 ML INJECTABLE VIAL IVPUSH SCH (13:36)
[2022-07-22] MEDS ORDERED: ALBUTEROL SO4 0.042% IH SOL 1.25 MG/3 ML VIAL.NEB NEB PRN (14:52)
[2022-07-23] MEDS: methylPREDNISolone NA SUCC 40 MG/1 ML VIAL IVPUSH SCH ×4 (03:17→21:07)
[2022-07-23] MEDS: FUROSEMIDE 40 MG/4 ML INJECTABLE VIAL IVPUSH SCH ×2 (06:52→14:05)
[2022-07-23] MEDS: INSULIN SLIDING SCALE (NOVOLOG) 1 VIAL SQ SCH ×4 (06:52→21:20)
[2022-07-23 07:56] LABS: MCH 27.7 pg (25.7-33.7); MCHC 34.4 g/dl (32.0-36.0); MEAN CELL VOLUME 80.6 fl (80-96); MEAN PLT VOLUME 8.5 fl (7.5-11.1); PLATELET COUNT 256 10^3/uL (134-434); RBC 4.34 M/mm3 (3.60-5.2); RDW 17.6 % (11.6-15.6); WHITE BLOOD COUNT 6.9 K/mm3 (4.0-10.0)
[2022-07-23 08:10] LABS: CALCIUM 8.1 mg/dL (8.5-10.1)
[2022-07-23 08:11] LABS: BLOOD UREA NITROGEN 33.8 mg/dL (7-18); MAGNESIUM 2.3 mg/dL (1.8-2.4)
[2022-07-23 08:12] LABS: ALBUMIN 2.7 g/dl (3.4-5.0)
[2022-07-23 08:14] LABS: CREATININE 0.8 mg/dL (0.55-1.3)
[2022-07-23 08:16] LABS: BILIRUBIN,TOTAL 0.3 mg/dL (0.2-1); TOT PROT 8.6 g/dl (6.4-8.2)
[2022-07-23] MEDS: ALBUTEROL SO4 2.5/IPRATROPIUM 0.5 INH SOL 3 ML VIAL.NEB. NEB SCH ×3 (09:02→20:02)
[2022-07-23] MEDS: ENOXAPARIN NA (PORCINE) 40 MG/0.4 ML DISP.SYRIN SQ SCH (09:29)
[2022-07-23] MEDS: CARVEDILOL 12.5 MG TABLET (FP) PO SCH ×2 (09:29→21:08)
[2022-07-23] MEDS: amLODIPine BESYLATE 10 MG TABLET (FP) PO SCH (09:29)
[2022-07-23] MEDS: PANTOPRAZOLE 40 MG TABLET PO SCH (09:29)
[2022-07-24] MEDS: methylPREDNISolone NA SUCC 40 MG/1 ML VIAL IVPUSH SCH ×2 (02:48→09:15)
[2022-07-24] MEDS: INSULIN SLIDING SCALE (NOVOLOG) 1 VIAL SQ SCH ×4 (06:21→21:49)
[2022-07-24] MEDS: FUROSEMIDE 40 MG/4 ML INJECTABLE VIAL IVPUSH SCH ×2 (06:22→13:48)
[2022-07-24] MEDS: ALBUTEROL SO4 2.5/IPRATROPIUM 0.5 INH SOL 3 ML VIAL.NEB. NEB SCH ×4 (08:05→20:52)
[2022-07-24] MEDS: amLODIPine BESYLATE 10 MG TABLET (FP) PO SCH (09:15)
[2022-07-24] MEDS: PANTOPRAZOLE 40 MG TABLET PO SCH (09:15)
[2022-07-24] MEDS: CARVEDILOL 12.5 MG TABLET (FP) PO SCH ×2 (09:15→21:49)
[2022-07-24] MEDS: ENOXAPARIN NA (PORCINE) 40 MG/0.4 ML DISP.SYRIN SQ SCH (09:15)
[2022-07-24 09:54] LABS: HEMATOCRIT 37.8 % (32.4-45.2); HEMOGLOBIN 12.6 GM/dL (10.7-15.3); MCHC 33.3 g/dl (32.0-36.0); MEAN CELL VOLUME 81.2 fl (80-96); MEAN PLT VOLUME 8.4 fl (7.5-11.1); PLATELET COUNT 261 10^3/uL (134-434); RBC 4.65 M/mm3 (3.60-5.2); RDW 17.7 % (11.6-15.6); WHITE BLOOD COUNT 7.5 K/mm3 (4.0-10.0)
[2022-07-24 10:17] LABS: CALCIUM 7.9 mg/dL (8.5-10.1)
[2022-07-24 10:18] LABS: ALBUMIN 2.8 g/dl (3.4-5.0); BLOOD UREA NITROGEN 39.2 mg/dL (7-18)
[2022-07-24 10:21] LABS: CREATININE 0.8 mg/dL (0.55-1.3)
[2022-07-24 10:23] LABS: BILIRUBIN,TOTAL 0.2 mg/dL (0.2-1); TOT PROT 8.7 g/dl (6.4-8.2)
[2022-07-24] MEDS: predniSONE 20 MG TABLET (UD) PO SCH (17:11)
[2022-07-25] MEDS: FUROSEMIDE 40 MG/4 ML INJECTABLE VIAL IVPUSH SCH ×2 (05:47→15:06)
[2022-07-25] MEDS: INSULIN SLIDING SCALE (NOVOLOG) 1 VIAL SQ SCH ×4 (06:31→22:12)
[2022-07-25] MEDS: ALBUTEROL SO4 2.5/IPRATROPIUM 0.5 INH SOL 3 ML VIAL.NEB. NEB SCH ×4 (07:24→20:05)
[2022-07-25] MEDS: amLODIPine BESYLATE 10 MG TABLET (FP) PO SCH (09:25)
[2022-07-25] MEDS: ENOXAPARIN NA (PORCINE) 40 MG/0.4 ML DISP.SYRIN SQ SCH (09:25)
[2022-07-25] MEDS: predniSONE 20 MG TABLET (UD) PO SCH (09:25)
[2022-07-25] MEDS: CARVEDILOL 12.5 MG TABLET (FP) PO SCH ×2 (09:25→22:13)
[2022-07-25] MEDS: PANTOPRAZOLE 40 MG TABLET PO SCH (09:25)
[2022-07-25] MEDS ORDERED: guaiFENesin/CODEINE 5 ML UNIT-DOSE CUPS PO PRN (13:12)
[2022-07-25] MEDS ORDERED: guaiFENesin/CODEINE 5 ML UNIT-DOSE CUPS PO SCH (14:00)
[2022-07-25] MEDS: POLYETHYLENE GLYCOL (HEALTHYLAX) 3350 17 GM PACKET PO SCH (15:06)
[2022-07-25] MEDS: guaiFENesin/CODEINE 5 ML UNIT-DOSE CUPS PO SCH (17:46)
[2022-07-25] MEDS: guaiFENesin/CODEINE 10 ML UNIT-DOSE CUPS PO SCH (22:13)
[2022-07-26] MEDS: FUROSEMIDE 40 MG/4 ML INJECTABLE VIAL IVPUSH SCH ×2 (06:12→14:50)
[2022-07-26] MEDS: INSULIN SLIDING SCALE (NOVOLOG) 1 VIAL SQ SCH ×4 (06:12→21:25)
[2022-07-26] MEDS: ALBUTEROL SO4 2.5/IPRATROPIUM 0.5 INH SOL 3 ML VIAL.NEB. NEB SCH ×4 (07:50→20:51)
[2022-07-26 08:46] LABS: BASO % 0.3 % (0-2.0); EOS % 0.1 % (0-4.5); HEMATOCRIT 39.8 % (32.4-45.2); HEMOGLOBIN 13.3 GM/dL (10.7-15.3); LYMPH % 42.2 % (8-40); MCHC 33.5 g/dl (32.0-36.0); MEAN CELL VOLUME 80.6 fl (80-96); MEAN PLT VOLUME 8.3 fl (7.5-11.1); MONO % 6.8 % (3.8-10.2); NEUT % 50.6 % (42.8-82.8); PLATELET COUNT 249 10^3/uL (134-434); RBC 4.93 M/mm3 (3.60-5.2); RDW 17.4 % (11.6-15.6); WHITE BLOOD COUNT 6.9 K/mm3 (4.0-10.0)
[2022-07-26 09:27] LABS: ALBUMIN 2.7 g/dl (3.4-5.0); CALCIUM 7.8 mg/dL (8.5-10.1); MAGNESIUM 2.6 mg/dL (1.8-2.4)
[2022-07-26 09:28] LABS: BLOOD UREA NITROGEN 37.9 mg/dL (7-18)
[2022-07-26 09:30] LABS: CREATININE 0.8 mg/dL (0.55-1.3); PHOSPHOROUS 3.2 mg/dL (2.5-4.9)
[2022-07-26 09:33] LABS: BILIRUBIN,TOTAL 0.4 mg/dL (0.2-1)
[2022-07-26] MEDS: POLYETHYLENE GLYCOL (HEALTHYLAX) 3350 17 GM PACKET PO SCH (10:17)
[2022-07-26] MEDS: guaiFENesin/CODEINE 5 ML UNIT-DOSE CUPS PO SCH ×2 (10:17→17:50)
[2022-07-26] MEDS: predniSONE 20 MG TABLET (UD) PO SCH (10:18)
[2022-07-26] MEDS: CARVEDILOL 12.5 MG TABLET (FP) PO SCH ×2 (10:18→21:25)
[2022-07-26] MEDS: PANTOPRAZOLE 40 MG TABLET PO SCH (10:18)
[2022-07-26] MEDS: amLODIPine BESYLATE 10 MG TABLET (FP) PO SCH (10:18)
[2022-07-26] MEDS: ENOXAPARIN NA (PORCINE) 40 MG/0.4 ML DISP.SYRIN SQ SCH (10:18)
[2022-07-26] MEDS ORDERED: POTASSIUM CHLORIDE TABS 10 MEQ TABLET.ER (FP) PO ONE (12:51)
[2022-07-26] MEDS: guaiFENesin/CODEINE 10 ML UNIT-DOSE CUPS PO SCH (21:25)
[2022-07-27] MEDS: INSULIN SLIDING SCALE (NOVOLOG) 1 VIAL SQ SCH ×2 (06:43→11:41)
[2022-07-27] MEDS: FUROSEMIDE 40 MG/4 ML INJECTABLE VIAL IVPUSH SCH (06:44)
[2022-07-27] MEDS: ALBUTEROL SO4 2.5/IPRATROPIUM 0.5 INH SOL 3 ML VIAL.NEB. NEB SCH ×2 (07:35→11:36)
[2022-07-27 09:42] VITALS: RESP 18
[2022-07-27] MEDS: ENOXAPARIN NA (PORCINE) 40 MG/0.4 ML DISP.SYRIN SQ SCH (09:55)
[2022-07-27] MEDS: PANTOPRAZOLE 40 MG TABLET PO SCH (09:56)
[2022-07-27] MEDS: guaiFENesin/CODEINE 5 ML UNIT-DOSE CUPS PO SCH (09:56)
[2022-07-27] MEDS: predniSONE 20 MG TABLET (UD) PO SCH (09:56)
[2022-07-27] MEDS: CARVEDILOL 12.5 MG TABLET (FP) PO SCH (09:56)
[2022-07-27] MEDS: amLODIPine BESYLATE 10 MG TABLET (FP) PO SCH (09:56)
[2022-07-27] MEDS: POLYETHYLENE GLYCOL (HEALTHYLAX) 3350 17 GM PACKET PO SCH (09:56)
[2022-07-27] MEDS ORDERED: MINERAL OIL ENEMA 133 ML ENEMA RC ONE (10:14)
[2022-07-27] MEDS ORDERED: BISACODYL 10 MG SUPP.RECT PR ONE (13:47)
[2022-07-27 15:22] VITALS: BP 142/78; PULSE 53; TEMP 97.9
[2022-07-28] MEDS ORDERED: FUROSEMIDE 40 MG TABLET (FP) PO SCH (10:00)
== END 2022-07-27 16:10 | disposition home or self-care (01) | DRG 291 ==
LOC: JER 11:02 → JERBED 16:43 → J4W 21:05
PROVIDERS: ADMIT Internal Medicine; ATTEND Internal Medicine
DX: I11.0 Hypertensive heart disease with heart failure (principal); I50.33 Acute on chronic diastolic (congestive) heart failure; J96.01 Acute respiratory failure with hypoxia; J44.1 Chronic obstructive pulmonary disease with (acute) exacerbation; E11.9 Type 2 diabetes mellitus without complications; J44.9 Chronic obstructive pulmonary disease, unspecified; E78.5 Hyperlipidemia, unspecified; I48.0 Paroxysmal atrial fibrillation; Z99.81 Dependence on supplemental oxygen; I89.0 Lymphedema, not elsewhere classified
CPT/HCPCS: 0241U-QW; 36415; 71045-TC-FY; 71275-TC; 80053; 81003; 82803; 82962; 83036; 83605; 83690; 83735; 83880; 84100; 84484; 85025; 85027; 85610; 85730; 87086; 93005; 93010; 93306-TC; 93970-TC; 94010; 94640; 94660; 94761; 97116-GP; 97162-GP; 99291; Q9967

== ENCOUNTER 2024-09-26 10:22 | Inpatient (IN) | payer OTHER ==
[2024-09-26 11:24] LABS: ABSOLUTE IMMATURE GRANULOCYTES 0.01 x10^3/uL (0.0-0.031); BASOPHILS # 0.03 x10^3/uL (0.01-0.08); EOSINOPHILS # 0.06 x10^3/uL (0.04-0.36); HEMATOCRIT 24.7 % (34.1-44.9); HEMOGLOBIN 7.3 g/dL (11.2-15.7); MCHC 29.6 g/dl (32.2-35.5); MEAN CELL VOLUME 83.7 fl (79.4-94.8); MEAN PLT VOLUME 10.2 fl (9.4-12.3); MONOCYTE % 8.1 % (4.7-12.5); PLATELET COUNT 215 x10^3/uL (182-369); RDW 20.9 % (12.5-17.0)
[2024-09-26 11:31] LABS: INR 1.27 (0.83-1.09)
[2024-09-26 11:56] LABS: CHLORIDE 106 mmol/L (98-107); SODIUM 132 mmol/L (136-145)
[2024-09-26 11:58] LABS: ALBUMIN 1.9 g/dl (3.4-5.0); BLOOD UREA NITROGEN 21.6 mg/dL (7-18); CALCIUM 7.9 mg/dL (8.5-10.1); CO2 30 mmol/L (21-32); GLUCOSE,RANDOM 101 mg/dL (74-106)
[2024-09-26 12:02] LABS: CREATININE 0.8 mg/dL (0.55-1.3)
[2024-09-26 12:04] LABS: ALK PHOS 117 U/L (45-117)
[2024-09-26 12:13] LABS: ANION GAP -5 mmol/L (4-13); POTASSIUM > 10.0 mmol/L (3.5-5.1); SGOT/AST 127 U/L (15-37)
[2024-09-26 13:04] LABS: HEMATOCRIT 21.8 % (34.1-44.9); HEMOGLOBIN 6.5 g/dL (11.2-15.7); MCHC 29.8 g/dl (32.2-35.5); MEAN CELL VOLUME 82.3 fl (79.4-94.8); MEAN PLT VOLUME 10.2 fl (9.4-12.3); PLATELET COUNT 202 x10^3/uL (182-369)
[2024-09-26 13:44] LABS: POTASSIUM 3.9 mmol/L (3.5-5.1)
[2024-09-26 13:46] LABS: ALBUMIN 2.1 g/dl (3.4-5.0); BLOOD UREA NITROGEN 19.5 mg/dL (7-18); CALCIUM 7.4 mg/dL (8.5-10.1)
[2024-09-26 13:49] LABS: CREATININE 0.7 mg/dL (0.55-1.3)
[2024-09-26 13:51] LABS: BILIRUBIN,TOTAL 0.3 mg/dL (0.2-1); TOT PROT 6.4 g/dl (6.4-8.2)
[2024-09-26 18:24] VITALS: BMI 38.1
[2024-09-26] MEDS: CARVEDILOL 12.5 MG TABLET (FP) PO SCH (21:37)
[2024-09-26] MEDS: ACETAMINOPHEN 500 MG TABLET (FP) PO PRN (22:25)
[2024-09-27 01:51] LABS: HEMATOCRIT 23.1 % (34.1-44.9); MCHC 30.3 g/dl (32.2-35.5); MEAN CELL VOLUME 83.4 fl (79.4-94.8); MEAN PLT VOLUME 9.7 fl (9.4-12.3); PLATELET COUNT 172 x10^3/uL (182-369); RDW 18.2 % (12.5-17.0)
[2024-09-27] MEDS: FUROSEMIDE 40 MG TABLET (FP) PO SCH (06:38)
[2024-09-27 07:08] LABS: HEMATOCRIT 22.5 % (34.1-44.9); MCHC 31.1 g/dl (32.2-35.5); MEAN CELL VOLUME 81.8 fl (79.4-94.8); MEAN PLT VOLUME 10.2 fl (9.4-12.3); PLATELET COUNT 190 x10^3/uL (182-369); RDW 17.8 % (12.5-17.0)
[2024-09-27 07:36] LABS: POTASSIUM 3.8 mmol/L (3.5-5.1)
[2024-09-27 07:44] LABS: ALBUMIN 2.1 g/dl (3.4-5.0); CALCIUM 7.4 mg/dL (8.5-10.1); PHOSPHOROUS 3.3 mg/dL (2.5-4.9)
[2024-09-27 07:45] LABS: BLOOD UREA NITROGEN 17.4 mg/dL (7-18); MAGNESIUM 2.1 mg/dL (1.8-2.4)
[2024-09-27 07:46] LABS: BILIRUBIN,TOTAL 0.5 mg/dL (0.2-1)
[2024-09-27 07:48] LABS: CREATININE 0.6 mg/dL (0.55-1.3)
[2024-09-27] MEDS: amLODIPine BESYLATE 10 MG TABLET (FP) PO SCH (10:24)
[2024-09-27] MEDS: MINERAL OIL/PET HY-PHL TOPICAL OINTMENT 454 GM JAR TP SCH (10:25)
[2024-09-27] MEDS: BISACODYL 5 MG TABLET.DR (FP) PO ONE (16:18)
[2024-09-27] MEDS ORDERED: PEG 3350/NA SULF BICARB CL/KCL 4000 ML SOLN.RECON PO ONE (17:00)
[2024-09-27 20:10] LABS: HEMATOCRIT 25.3 % (34.1-44.9); MCHC 31.6 g/dl (32.2-35.5); MEAN CELL VOLUME 82.1 fl (79.4-94.8); MEAN PLT VOLUME 10.2 fl (9.4-12.3); PLATELET COUNT 221 x10^3/uL (182-369); RDW 17.1 % (12.5-17.0)
[2024-09-27] MEDS: SODIUM CHLORIDE 500 ML IV STA (22:54)
[2024-09-28 00:40] LABS: HEMATOCRIT 21.5 % (34.1-44.9); HEMOGLOBIN 6.8 g/dL (11.2-15.7); MCHC 31.6 g/dl (32.2-35.5); MEAN PLT VOLUME 9.2 fl (9.4-12.3); PLATELET COUNT 190 x10^3/uL (182-369); RDW 17.4 % (12.5-17.0)
[2024-09-28 07:22] LABS: ABSOLUTE IMMATURE GRANULOCYTES 0.12 x10^3/uL (0.0-0.031); BASOPHILS # 0.01 x10^3/uL (0.01-0.08); EOSINOPHIL % 1.5 % (0.7-5.8); EOSINOPHILS # 0.12 x10^3/uL (0.04-0.36); HEMATOCRIT 24.4 % (34.1-44.9); HEMOGLOBIN 7.6 g/dL (11.2-15.7); MCHC 31.1 g/dl (32.2-35.5); MEAN CELL VOLUME 83.8 fl (79.4-94.8); MEAN PLT VOLUME 10.2 fl (9.4-12.3); MONOCYTE # 0.51 x10^3/uL (0.24-0.86); MONOCYTE % 6.6 % (4.7-12.5); PLATELET COUNT 196 x10^3/uL (182-369); RDW 16.8 % (12.5-17.0)
[2024-09-28 07:42] LABS: POTASSIUM 3.6 mmol/L (3.5-5.1)
[2024-09-28 07:49] LABS: CALCIUM 7.8 mg/dL (8.5-10.1)
[2024-09-28 07:52] LABS: BLOOD UREA NITROGEN 12.7 mg/dL (7-18)
[2024-09-28 07:54] LABS: BILIRUBIN,TOTAL 0.4 mg/dL (0.2-1); TOT PROT 5.7 g/dl (6.4-8.2)
[2024-09-28 07:55] LABS: CREATININE 0.7 mg/dL (0.55-1.3)
[2024-09-28 08:08] LABS: INR 1.21 (0.83-1.09); PROTHROMBIN TIME (PATIENT) 13.3 SEC (9.7-13.0)
[2024-09-28 21:17] LABS: HEMATOCRIT 26.6 % (34.1-44.9); HEMOGLOBIN 8.3 g/dL (11.2-15.7); MCHC 31.2 g/dl (32.2-35.5); MEAN CELL VOLUME 82.9 fl (79.4-94.8); MEAN PLT VOLUME 9.8 fl (9.4-12.3); PLATELET COUNT 207 x10^3/uL (182-369); RDW 16.7 % (12.5-17.0)
[2024-09-29 08:40] LABS: HEMOGLOBIN 8.4 g/dL (11.2-15.7); MCHC 31.1 g/dl (32.2-35.5); MEAN CELL VOLUME 85.7 fl (79.4-94.8); PLATELET COUNT 213 x10^3/uL (182-369); RDW 17.7 % (12.5-17.0)
[2024-09-29 09:00] LABS: POTASSIUM 3.7 mmol/L (3.5-5.1)
[2024-09-29 09:10] LABS: ALBUMIN 2.2 g/dl (3.4-5.0); BLOOD UREA NITROGEN 11.8 mg/dL (7-18); CALCIUM 7.5 mg/dL (8.5-10.1)
[2024-09-29 09:15] LABS: BILIRUBIN,TOTAL 0.4 mg/dL (0.2-1); CREATININE 0.7 mg/dL (0.55-1.3); TOT PROT 6.4 g/dl (6.4-8.2)
[2024-09-30 07:33] LABS: ABSOLUTE IMMATURE GRANULOCYTES 0.06 x10^3/uL (0.0-0.031); BASOPHILS # 0.02 x10^3/uL (0.01-0.08); EOSINOPHIL % 1.1 % (0.7-5.8); EOSINOPHILS # 0.08 x10^3/uL (0.04-0.36); HEMATOCRIT 24.9 % (34.1-44.9); HEMOGLOBIN 7.5 g/dL (11.2-15.7); MCHC 30.1 g/dl (32.2-35.5); MEAN CELL VOLUME 87.4 fl (79.4-94.8); MEAN PLT VOLUME 9.7 fl (9.4-12.3); MONOCYTE # 0.53 x10^3/uL (0.24-0.86); MONOCYTE % 7.3 % (4.7-12.5); PLATELET COUNT 237 x10^3/uL (182-369); RDW 17.9 % (12.5-17.0)
[2024-09-30 07:54] LABS: POTASSIUM 3.8 mmol/L (3.5-5.1)
[2024-09-30 08:00] LABS: BLOOD UREA NITROGEN 9.6 mg/dL (7-18); CALCIUM 7.7 mg/dL (8.5-10.1); MAGNESIUM 2.1 mg/dL (1.8-2.4)
[2024-09-30 08:02] LABS: CREATININE 0.7 mg/dL (0.55-1.3)
[2024-09-30 08:04] LABS: BILIRUBIN,TOTAL 0.2 mg/dL (0.2-1); PHOSPHOROUS 2.8 mg/dL (2.5-4.9)
[2024-10-01 07:48] LABS: ABSOLUTE IMMATURE GRANULOCYTES 0.03 x10^3/uL (0.0-0.031); BASOPHILS # 0.03 x10^3/uL (0.01-0.08); EOSINOPHIL % 1.4 % (0.7-5.8); EOSINOPHILS # 0.09 x10^3/uL (0.04-0.36); HEMATOCRIT 24.8 % (34.1-44.9); HEMOGLOBIN 7.6 g/dL (11.2-15.7); MCHC 30.6 g/dl (32.2-35.5); MEAN CELL VOLUME 87.6 fl (79.4-94.8); MONOCYTE # 0.51 x10^3/uL (0.24-0.86); PLATELET COUNT 270 x10^3/uL (182-369)
[2024-10-01 07:54] LABS: INR 1.19 (0.83-1.09); PROTHROMBIN TIME (PATIENT) 13.1 SEC (9.7-13.0)
[2024-10-01 07:57] LABS: POTASSIUM 3.5 mmol/L (3.5-5.1)
[2024-10-01 07:59] LABS: CALCIUM 7.4 mg/dL (8.5-10.1)
[2024-10-01 08:00] LABS: ALBUMIN 2.2 g/dl (3.4-5.0); BLOOD UREA NITROGEN 7.7 mg/dL (7-18)
[2024-10-01 08:03] LABS: CREATININE 0.6 mg/dL (0.55-1.3)
[2024-10-01 08:05] LABS: BILIRUBIN,TOTAL 0.4 mg/dL (0.2-1)
[2024-10-01] MEDS: BISACODYL 5 MG TABLET.DR (FP) PO ONE (15:55)
[2024-10-01] MEDS: FUROSEMIDE 40 MG/4 ML INJECTABLE VIAL IVPUSH SCH (16:00)
[2024-10-01] MEDS: PEG 3350/NA SULF BICARB CL/KCL 4000 ML SOLN.RECON PO ONE (16:59)
[2024-10-02 06:42] LABS: ABSOLUTE IMMATURE GRANULOCYTES 0.03 x10^3/uL (0.0-0.031); BASOPHILS # 0.02 x10^3/uL (0.01-0.08); EOSINOPHIL % 1.2 % (0.7-5.8); EOSINOPHILS # 0.09 x10^3/uL (0.04-0.36); HEMATOCRIT 25.6 % (34.1-44.9); HEMOGLOBIN 7.8 g/dL (11.2-15.7); MCHC 30.5 g/dl (32.2-35.5); MEAN CELL VOLUME 85.3 fl (79.4-94.8); MEAN PLT VOLUME 9.9 fl (9.4-12.3); MONOCYTE # 0.63 x10^3/uL (0.24-0.86); MONOCYTE % 8.6 % (4.7-12.5); PLATELET COUNT 298 x10^3/uL (182-369); RDW 17.5 % (12.5-17.0)
[2024-10-02 06:43] VITALS: RESP 18
[2024-10-02 07:05] LABS: POTASSIUM 3.5 mmol/L (3.5-5.1)
[2024-10-02 07:15] LABS: ALBUMIN 2.4 g/dl (3.4-5.0); CALCIUM 8.1 mg/dL (8.5-10.1)
[2024-10-02 07:16] LABS: BLOOD UREA NITROGEN 13.4 mg/dL (7-18)
[2024-10-02 07:19] LABS: CREATININE 0.7 mg/dL (0.55-1.3)
[2024-10-02 07:20] LABS: BILIRUBIN,TOTAL 0.3 mg/dL (0.2-1); TOT PROT 6.7 g/dl (6.4-8.2)
[2024-10-02] MEDS: CARVEDILOL 12.5 MG TABLET (FP) PO SCH (10:15)
[2024-10-03 07:58] LABS: ABSOLUTE IMMATURE GRANULOCYTES 0.02 x10^3/uL (0.0-0.031); BASOPHILS # 0.02 x10^3/uL (0.01-0.08); EOSINOPHIL % 1.8 % (0.7-5.8); EOSINOPHILS # 0.12 x10^3/uL (0.04-0.36); HEMATOCRIT 26.1 % (34.1-44.9); HEMOGLOBIN 7.8 g/dL (11.2-15.7); MCHC 29.9 g/dl (32.2-35.5); MEAN CELL VOLUME 86.1 fl (79.4-94.8); MEAN PLT VOLUME 9.9 fl (9.4-12.3); MONOCYTE # 0.63 x10^3/uL (0.24-0.86); MONOCYTE % 9.5 % (4.7-12.5); PLATELET COUNT 339 x10^3/uL (182-369); RDW 17.7 % (12.5-17.0)
[2024-10-03 08:10] LABS: POTASSIUM 3.3 mmol/L (3.5-5.1)
[2024-10-03 08:17] LABS: ALBUMIN 2.3 g/dl (3.4-5.0); BLOOD UREA NITROGEN 11.3 mg/dL (7-18)
[2024-10-03 08:18] LABS: CREATININE 0.6 mg/dL (0.55-1.3)
[2024-10-03 08:20] LABS: BILIRUBIN,TOTAL 0.3 mg/dL (0.2-1); TOT PROT 6.6 g/dl (6.4-8.2)
[2024-10-03] MEDS: POTASSIUM CHLORIDE ORAL LIQUID 20 MEQ/15 ML PO ONE (10:07)
[2024-10-03 14:25] VITALS: BP 114/47; PULSE 81; TEMP 99.2
== END 2024-10-03 16:50 | DRG 378 ==
LOC: JER 10:22 → UNDOADMOB 14:49 → INTOOBSV 14:49 → JERBED 14:49 → OBSVTOIN 15:16 → J4W 17:41
PROVIDERS: ADMIT Internal Medicine; ATTEND Internal Medicine
PROC: 30233N1 Transfusion of Nonautologous Red Blood Cells into Peripheral Vein, Percutaneous Approach (ICD-10-PCS; principal; 2024-09-26)
DX: K57.91 Diverticulosis of intestine, part unspecified, without perforation or abscess with bleeding (principal); D62 Acute posthemorrhagic anemia; J44.9 Chronic obstructive pulmonary disease, unspecified; I10 Essential (primary) hypertension; M06.9 Rheumatoid arthritis, unspecified; R09.89 Other specified symptoms and signs involving the circulatory and respiratory systems; I89.0 Lymphedema, not elsewhere classified; K64.8 Other hemorrhoids; G47.33 Obstructive sleep apnea (adult) (pediatric); I45.10 Unspecified right bundle-branch block; R09.02 Hypoxemia
CPT/HCPCS: 36415; 36430; 71045-TC-FY; 74174-TC; 80053; 82272; 82728; 83540; 83550; 83735; 84100; 84466; 85025; 85027; 85610; 86850; 86900; 86901; 86922; 93005; 93010; 93306-TC; 97116-GP; 97161-GP; 99291; G0378; P9058